=== PATIENT | male | born 1940 | race Caucasian/White ===

== ENCOUNTER 2016-10-25 16:13 | Emergency (ER) | payer MEDICARE, OTHER ==
[2016-10-25] MEDS ORDERED: traMADol HCl 50 MG TAB ONE (17:08)
[2016-10-25] MEDS ORDERED: Bacitracin Zinc 1 Packet ONE (17:13)
[2016-10-25] MEDS ORDERED: Orphenadrine Citrate 60 MG/2 ML VIAL ONE (17:30)
--- NOTE | 2016-10-25 18:34 | CT ---
CT HEAD NONCONTRAST CLINICAL HISTORY: Chronic neuropathy and weakness. FINDINGS: There is moderate chronic microvascular ischemic disease. Mild prominence of the ventricular system is present. There is no acute intracranial hemorrhage, mass effect, or midline shift. Scattered p aranasal sinus opacification, including a fluid level of the right maxillary sinus, is present. IMPRESSION: 1. Moderate chronic microvascular ischemic disease. 2. Mild prominence of the ventricular system, somewhat out of proportion to the size of the sulci. Correlate clinically to exclude evidence of a normal pressure hydrocephalus. Alternatively, ventri cular prominence could be due to the degree of microvascular ischemic disease. POS: [facility]
--- NOTE | 2016-10-25 19:04 | RAD ---
RIGHT SHOULDER THREE VIEWS HISTORY: Neuropathy and back weakness. Using a walker, attempting to get his easy chair, he could not make i t and fell backwards, onto concrete. Scapular pain, worse with movement. Chronic weakness. COMPARISON: None. FINDINGS: Glenohumeral alignment is normal. There are some enthesophytic changes of the coracoid. The body o f the scapula appears intact. The ribs are unremarkable. IMPRESSION: No acute fracture or malalignment. POS: [facility]
--- NOTE | 2016-10-26 07:29 | CT ---
CT THORACIC SPINE INDICATIONS: Chronic neuropathy and weakness. FINDINGS: There is multi-level prominent degenerative changes at the thoracic spine with associated kyphosis. No compression fracture or significant subluxation. No significant retropulsion involving the vert ebral canal. There is multilevel mild disk-osteophyte complex formation, producing mild multilevel central canal stenosis and mild to moderate bilateral neural foraminal narrowing of the thoracic spi ne. These findings are inadequately assessed on noncontrast CT imaging. Scattered nonspecific samina onal lymph nodes are present. There is prominent cardiac valvular calcification, as well as vascula r disease, including coronary artery calcium. Incidental note of pulmonary emphysema. IMPRESSION: Degenerative changes of the thoracic spine, without acute fracture or subluxation. [facility]: [facility]
== END 2016-10-25 18:18 | disposition home or self-care (01) ==
LOC: NAV ERS 16:13
DX: S41.112A Laceration without foreign body of left upper arm, initial encounter (principal); S30.0XXA Contusion of lower back and pelvis, initial encounter; S00.03XA Contusion of scalp, initial encounter; Z79.02 Long term (current) use of antithrombotics/antiplatelets; K21.9 Gastro-esophageal reflux disease without esophagitis; I25.10 Atherosclerotic heart disease of native coronary artery without angina pectoris; Z86.73 Personal history of transient ischemic attack (TIA), and cerebral infarction without residual deficits; Z79.82 Long term (current) use of aspirin; Z79.899 Other long term (current) drug therapy; W07.XXXA Fall from chair, initial encounter
CPT/HCPCS: 70450; 72128; 96372; J2360

== ENCOUNTER 2017-03-03 14:47 | Emergency (ER) | payer MEDICARE, OTHER ==
--- NOTE | 2017-03-03 15:32 | RAD ---
THREE VIEWS OF THE RIGHT SHOULDER: 03/03/17 COMPARISON: 10/25/16 HISTORY: Right shoulder pain for two weeks. FINDINGS: There is anterior osteophyte formation involving the right acromion. No widening of the acromioclavi cular or coracoclavicular interspace. Stable degenerative change at the right AC joint noted with in ferior osteophyte formation. No evidence for dislocation or acute fracture. IMPRESSION: Stable degenerative change of the right acromioclavicular joint. No displaced fracture or dislocatio n seen. POS: [facility]
[2017-03-03] MEDS ORDERED: Ketorolac Tromethamine 30 MG/ML VIAL ONE (15:35)
[2017-03-03] MEDS ORDERED: Acetaminophen 500 MG TAB ONE (15:36)
[2017-03-03] MEDS ORDERED: Dexamethasone 20 MG/5 ML VIAL ONE (15:37)
== END 2017-03-03 15:53 | disposition home or self-care (01) ==
LOC: NAV ERS 14:47
DX: M75.51 Bursitis of right shoulder (principal); E78.5 Hyperlipidemia, unspecified; I10 Essential (primary) hypertension; I25.10 Atherosclerotic heart disease of native coronary artery without angina pectoris; G62.9 Polyneuropathy, unspecified; Z87.891 Personal history of nicotine dependence; Z86.73 Personal history of transient ischemic attack (TIA), and cerebral infarction without residual deficits; Z79.82 Long term (current) use of aspirin; Z79.02 Long term (current) use of antithrombotics/antiplatelets; Z79.891 Long term (current) use of opiate analgesic; Z79.899 Other long term (current) drug therapy
CPT/HCPCS: 96372; J1100; J1885

== ENCOUNTER → 2017-05-06 | Emergency (ER) | payer MEDICARE, OTHER ==
[~2017-05-06] MED LIST: Acetaminophen 500 MG TAB ONE; Lidocaine 1% 20 ML MDV ONE; Sulfameth/Trimethoprim DS 800-160mg TAB ONE
[2017-05-06 19:04] LABS: #Basophils 0.1 thou/uL (0.0-0.2); #Eosinphils 0.1 thou/uL (0.0-0.7); #Lymphocytes 1.2 thou/uL (1.20-3.40); #Monocytes 1.1 thou/uL (0.11-0.59); #Neutrophils 9.5 thou/uL (1.40-6.50); %Basophils 1.2 % (0.0-1.0); %Eosinophils 0.8 % (0.0-10.0); %Monocytes 9.4 % (0.0-10.0); %Neutrophils 78.6 % (42.0-75.0); Hemoglobin 14.3 g/dL (14.0-18.0); Mean Corpuscular Hemoglobin 30.9 pg (27.0-31.0); Mean Corpuscular Volume 96.5 fl (80.0-94.0); Mean Platelet Volume 8.1 fL (7.4-10.4); Platelet Count 175 thou/uL (130-400); Red Blood Cell (RBC) Count 4.62 mill/uL (4.70-6.10); White Blood Cell (WBC) Count 12.1 thou/uL (4.8-10.8)
[2017-05-06 19:11] LABS: ALT (SGPT) 7 U/L (8-55); AST (SGOT) 14 U/L (5-34); Albumin 4.2 g/dL (3.4-4.8); Alkaline Phosphatase 74 U/L (40-150); Anion Gap 15 mmol/L (10-20); BUN (Urea Nitrogen) 15 mg/dL (8.4-25.7); Bilirubin, Total 0.8 mg/dL (0.2-1.2); Calc. Creatinine Clearance 0 mL/min (70-130); Calcium 9.5 mg/dL (7.8-10.44); Carbon Dioxide 25 mmol/L (23-31); Chloride 103 mmol/L (98-107); Estimated GFR-MDRD 79; Globulin 3.3 g/dL (2.4-3.5); Glucose 96 mg/dL (83-110); Potassium 4.1 mmol/L (3.5-5.1); Protein, Total 7.5 g/dL (5.8-8.1); Sodium 139 mmol/L (136-145)
== END ==
LOC: NAV ERS 17:12
DX: L02.426 Furuncle of left lower limb (principal); E78.5 Hyperlipidemia, unspecified; I10 Essential (primary) hypertension; I25.10 Atherosclerotic heart disease of native coronary artery without angina pectoris; K21.9 Gastro-esophageal reflux disease without esophagitis; Z86.73 Personal history of transient ischemic attack (TIA), and cerebral infarction without residual deficits; Z87.891 Personal history of nicotine dependence; Z79.891 Long term (current) use of opiate analgesic; Z79.82 Long term (current) use of aspirin; Z79.899 Other long term (current) drug therapy; Z79.02 Long term (current) use of antithrombotics/antiplatelets; Z95.0 Presence of cardiac pacemaker
CPT/HCPCS: 10060; 80053; 83605; 85025; 86140; 87040; 87070; 87077; 87149; 87186; 87205; J2001

== ENCOUNTER 2017-05-31 12:15 | Outpatient (CLI) | payer MEDICARE, OTHER ==
[2017-05-31 13:01] LABS: Vancomycin, Trough 11.6 ug/mL
[2017-05-31 13:04] LABS: #Basophils 0.1 thou/uL (0.0-0.2); #Eosinphils 0.3 thou/uL (0.0-0.7); #Monocytes 0.7 thou/uL (0.11-0.59); %Eosinophils 3.7 % (0.0-10.0); %Lymphocytes 11.1 % (21.0-51.0); %Monocytes 7.4 % (0.0-10.0); %Neutrophils 76.9 % (42.0-75.0); Hemoglobin 11.7 g/dL (14.0-18.0); Mean Corpuscular HGB CONC 32.1 g/dL (32.0-36.0); Mean Corpuscular Hemoglobin 30.5 pg (27.0-31.0); Mean Platelet Volume 8.6 fL (7.4-10.4); Platelet Count 183 thou/uL (130-400); RBC Distribution Width 13.5 % (11.5-14.5); Red Blood Cell (RBC) Count 3.84 mill/uL (4.70-6.10); White Blood Cell (WBC) Count 9.1 thou/uL (4.8-10.8)
[2017-05-31 13:06] LABS: ALT (SGPT) Less than 6 U/L (8-55); AST (SGOT) 18 U/L (5-34); Albumin 3.8 g/dL (3.4-4.8); Alkaline Phosphatase 66 U/L (40-150); Anion Gap 15 mmol/L (10-20); BUN (Urea Nitrogen) 12 mg/dL (8.4-25.7); Bilirubin, Total 0.6 mg/dL (0.2-1.2); CRP (Inflammatory) 2.51 mg/dL (= or < 0.5); Calc. Creatinine Clearance 0 mL/min (70-130); Calcium 8.7 mg/dL (7.8-10.44); Carbon Dioxide 24 mmol/L (23-31); Chloride 105 mmol/L (98-107); Estimated GFR-MDRD 58; Globulin 2.7 g/dL (2.4-3.5); Glucose 103 mg/dL (83-110); Potassium 3.3 mmol/L (3.5-5.1); Protein, Total 6.5 g/dL (5.8-8.1); Sodium 141 mmol/L (136-145)
[2017-05-31 13:43] LABS: Follow-up Chemistry Comp? YES; Follow-up Hematology Comp? YES; Follow-up Result - Chemistry REPORT FAXED; Follow-up Result - Hematology REPORT FAXED
== END 2017-05-31 12:16 | disposition home or self-care (01) ==
LOC: NAV LABSP 12:15
PROVIDERS: ATTEND Internal Medicine Infectious Disease
DX: L02.31 Cutaneous abscess of buttock (principal)
CPT/HCPCS: 80053; 80202; 85025; 86140

== ENCOUNTER 2017-05-31 13:57 | Emergency (ER) | payer MEDICARE, OTHER ==
[2017-05-31 15:04] LABS: #Basophils 0.1 thou/uL (0.0-0.2); #Eosinphils 0.4 thou/uL (0.0-0.7); #Lymphocytes 1.1 thou/uL (1.20-3.40); #Monocytes 0.9 thou/uL (0.11-0.59); #Neutrophils 5.6 thou/uL (1.40-6.50); %Basophils 1.1 % (0.0-1.0); %Eosinophils 5.2 % (0.0-10.0); %Lymphocytes 13.4 % (21.0-51.0); %Monocytes 10.9 % (0.0-10.0); %Neutrophils 69.4 % (42.0-75.0); Hemoglobin 11.2 g/dL (14.0-18.0); Mean Corpuscular HGB CONC 31.8 g/dL (32.0-36.0); Mean Corpuscular Hemoglobin 30.5 pg (27.0-31.0); Mean Corpuscular Volume 96.1 fl (80.0-94.0); Mean Platelet Volume 8.4 fL (7.4-10.4); Platelet Count 178 thou/uL (130-400); RBC Distribution Width 12.5 % (11.5-14.5); Red Blood Cell (RBC) Count 3.66 mill/uL (4.70-6.10); White Blood Cell (WBC) Count 8.1 thou/uL (4.8-10.8)
[2017-05-31 15:16] LABS: Bilirubin Negative (Negative); Blood, Urine Trace (Negative); Clarity Clear (Clear); Glucose, Urine (Dipstick) Negative (Negative); Leukocyte Trace (Negative); Nitrite Negative (Negative); Protein, Urine (Dipstick) Negative (Neg-Trace); Specific Gravity, Urine 1.015 (1.005-1.030); Urobilinogen 0.2 mg/dL (0.2-1.0)
[2017-05-31 15:22] LABS: CKMB 2.6 ng/mL (0-6.6); Troponin I 0.053 ng/mL (< 0.028)
[2017-05-31 15:23] LABS: ALT (SGPT) Less than 6 U/L (8-55); AST (SGOT) 17 U/L (5-34); Albumin 3.9 g/dL (3.4-4.8); Alkaline Phosphatase 68 U/L (40-150); Anion Gap 14 mmol/L (10-20); BUN (Urea Nitrogen) 12 mg/dL (8.4-25.7); Bilirubin, Total 0.5 mg/dL (0.2-1.2); CK (CPK) 58 U/L (30-200); Calc. Creatinine Clearance 0 mL/min (70-130); Calcium 8.5 mg/dL (7.8-10.44); Carbon Dioxide 28 mmol/L (23-31); Chloride 104 mmol/L (98-107); Estimated GFR-MDRD 61; Globulin 2.7 g/dL (2.4-3.5); Glucose 78 mg/dL (83-110); Protein, Total 6.6 g/dL (5.8-8.1); Sodium 143 mmol/L (136-145)
[2017-05-31 15:33] LABS: RBC/HPF 0-3 HPF (0-3)
[2017-05-31 15:37] LABS: Bacteria/HPF None Seen HPF (None Seen); WBC/HPF 0-3 HPF (0-3)
[2017-05-31] MEDS ORDERED: Furosemide 40 MG/4 ML VIAL ONE (15:43)
[2017-05-31] MEDS ORDERED: Potassium Chloride 20 MEQ TAB ONE (15:43)
--- NOTE | 2017-05-31 17:06 | RAD ---
FRONTAL RADIOGRAPH CHEST PORTABLE SEMIUPRIGHT: Date: 05-31-17 Comparison: None. History: Emergency examination. FINDINGS: There is a right upper extremity PICC, distal tip overlying the region of the SVC. There is a transv enous pacing device present. Shallow inspiration and lordotic positioning as well as patient body habitus limits detailed assessm ent, especially of bilateral lung bases in the left perihilar region. There is hazy increased densit y in both lung bases which could signify parenchymal or pleural opacity versus artifact. IMPRESSION: Limited evaluation of the lung bases. Recommend PA and lateral chest imaging with better patient pos itioning and better inspiration. POS: [facility]
== END 2017-05-31 17:57 | disposition short-term general hospital (02) ==
LOC: NAV ERS 13:57
DX: I11.0 Hypertensive heart disease with heart failure (principal); I50.9 Heart failure, unspecified; E87.6 Hypokalemia; E78.5 Hyperlipidemia, unspecified; Z87.891 Personal history of nicotine dependence; Z79.899 Other long term (current) drug therapy; Z79.82 Long term (current) use of aspirin
CPT/HCPCS: 71010; 80053; 80202; 81003; 81015; 82550; 82553; 83880; 84484; 85025; 86140; 93005; 96374; J1940

== ENCOUNTER 2017-06-04 14:29 | Inpatient (IN) | payer MEDICARE, OTHER ==
[2017-06-04 16:30] VITALS: BMI 32.9
[2017-06-04] MEDS ORDERED: Gabapentin 300 MG CAP PO SCH (22:15)
[2017-06-04] MEDS: traMADol HCl 50 MG TAB PO PRN (22:16)
[2017-06-04] MEDS ORDERED: VANCOMYCIN IVPB PRN (22:21)
[2017-06-05 05:28] LABS: Eosinophils 2 % (0-10); Hemoglobin 11.7 g/dL (14.0-18.0); Lymphocytes 13 % (21-51); MDiff Complete? YES; Mean Corpuscular HGB CONC 32.5 g/dL (32.0-36.0); Mean Corpuscular Hemoglobin 30.7 pg (27.0-31.0); Mean Corpuscular Volume 94.4 fl (80.0-94.0); Monocytes 10 % (0-10); Neutrophil 75 % (42-75); PLT Morphology Comment Appears Adequate; Platelet Count 193 thou/uL (130-400); RBC Morphology Normal; White Blood Cell (WBC) Count 7.3 thou/uL (4.8-10.8)
[2017-06-05 05:34] LABS: Anion Gap 14 mmol/L (10-20); BUN (Urea Nitrogen) 17 mg/dL (8.4-25.7); Calc. Creatinine Clearance 59 mL/min (70-130); Calcium 8.8 mg/dL (7.8-10.44); Carbon Dioxide 27 mmol/L (23-31); Chloride 105 mmol/L (98-107); Estimated GFR-MDRD 45; Glucose 107 mg/dL (83-110); Sodium 143 mmol/L (136-145)
[2017-06-05 07:09] LABS: Potassium 2.8 mmol/L (3.5-5.1)
[2017-06-05] MEDS ORDERED: Potassium Chloride 20 MEQ TAB PO SCH ×2 (08:00→10:00)
[2017-06-05] MEDS ORDERED: Potassium Chloride 10 MEQ TAB PO SCH (08:00)
[2017-06-05] MEDS: Furosemide 40 MG TAB PO SCH (08:21)
[2017-06-05] MEDS: Aspirin 81 mg Enteric Coated Tablet PO SCH (08:21)
[2017-06-05] MEDS: Clopidogrel Bisulfate 75 MG TAB PO SCH (08:21)
[2017-06-05] MEDS: Gabapentin 300 MG CAP PO SCH ×3 (08:22→21:10)
[2017-06-05] MEDS: traMADol HCl 50 MG TAB PO PRN ×2 (08:23→21:11)
[2017-06-05] MEDS ORDERED: Non-Formulary Item 1 EACH (Vancomycin Hcl [Vancomycin Hcl] 1 GM) IVPB SCH (09:00)
[2017-06-05] MEDS: Vancomycin HCl 1 GM in Sodium Chloride 0.9% 250 ML 250 ML IVPB SCH (10:03)
--- NOTE | 2017-06-05 10:48 | HP ---
DATE OF SERVICE: 06/05/2017 CHIEF COMPLAINT: Ad[facility] therapy status post recent admi ssion to the hospital for diastolic congestive heart failure, left thigh abscess requiring IV antibi otics, and coronary artery disease. BRIEF HISTORY: This is a pleasant 76-year-old male who presented to [facility] with in creasing lower extremity edema and elevated blood pressure. His BNP was 1400. The echocardiogram s hows a preserved systolic function of 50-55%, but has severe aortic stenosis and possible diastolic dysfunction. He responded to IV Lasix. He has been switched over to oral Lasix and he was continue d on his IV vancomycin for his left thigh abscess with MRSA. He has been transferred here to finish his antibiotics as well as physical therapy. Currently, he denies any complaints. He is in bed in no distress. He denies any fever or chills. PAST MEDICAL HISTORY: 1. Coronary artery disease. 2. Hypertension. 3. Dyslipidemia. 4. Thigh abscess with MRSA requiring IV vancomycin. 5. Severe aortic stenosis. 6. Possible diastolic dysfunction. 7. History of CVA. 8. Gastroesophageal reflux disease. PAST SURGICAL HISTORY: 1. Coronary artery bypass grafting. 2. Permanent pacemaker placement. 3. Prostatectomy which is transurethral resection of the prostate. 4. Lumbar spine surgery. 5. Hernia repair. 6. Left total knee replacement revision. PSYCHOSOCIAL HISTORY: No tobacco, alcohol, or IV drug abuse. He lives alone, is fairly active and independent. FAMILY HISTORY: Positive for coronary artery disease. ALLERGIES: No known drug allergies. MEDICATIONS: He has been admitted here with the following medications: Lasix 40 mg daily, aspirin 81 mg daily, Plavix 75 mg daily, gabapentin 300 mg t.i.d., metoprolol ER 12.5 mg daily, tramadol 50 mg 2 tablets q.6 p.r.n., potassium chloride 10 mEq daily, and vancomycin 1 gram IV q.24. Discharge o rder states q.12, but pharmacy called me and stated that they had changed his dosing to q.24 and so that is what he is going to be on and pharmacy is going to continue to adjust his dosing. REVIEW OF SYSTEMS: Cardiovascular: Denies any chest pain, shortness of breath, palpitations, PND, orthopnea, or pedal edema. Respiratory: Denies any chronic cough, expectoration or pleuritic type chest pain. Gastrointestinal: Denies any nausea, vomiting, diarrhea, constipation, hematemesis, me ghislaine, or hematochezia. GENITOURINARY: Denies any frequency, urgency, dysuria or hematuria. Centra l Nervous Systems: No focal numbness, weakness, or fainting spells. PHYSICAL EXAMINATION: GENERAL: Pleasant 76-year-old male resting comfortably in no acute distress. He responds appropriately to questions. VITAL SIGNS: He is afebrile, heart rate 79, respirations 18, oxygen saturation 95% on room air, blo od pressure is 143/88. HEENT: Normocephalic, atraumatic. Pupils equally reactive to light and accommodation. Extraocular muscles intact. NECK: No JVD, thyromegaly, cervical adenopathy, throat exudates or carotid bruits. CARDIOVASCULAR: S1, S2 plus, rate and rhythm regular. He has a 3/6 ejection systolic murmur in the aortic area. RESPIRATORY: Normal vesicular breath sounds. ABDOMEN: Soft, obese, nontender, bowel sounds heard in all quadrants. EXTREMITIES: Without cyanosis or clubbing. Peripheral pulses are palpable. He has 1+ pitting tala a. CENTRAL NERVOUS SYSTEMS: Grossly nonfocal. LABORATORY VALUES: Done this morning shows a white count of 7.3, H\T\H is 11.7 and 35.9. Sodium 14 3, potassium is 2.8, it was 3.6 on the 9th. BUN and creatinine 17 and 1.52. BNP on the 7th was 141 0. IMPRESSION: 1. Possible diastolic congestive heart failure. 2. Hypokalemia. 3. Coronary artery disease without angina. 4. History of thigh abscess with methicillin-resistant Staphylococcus aureus. 5. Severe aortic stenosis. PLAN: 1. Replace potassium. 2. Recheck potassium level at noon today. 3. Continue IV vancomycin, pharmacy to adjust dosing. 4. Wound care. 5. Heart healthy diet. 6. Physical therapy evaluation and treatment. 7. Routine laboratory values. 8. Decubitus precautions. 9. DVT prophylaxis. 10. Discussed with patient in detail and all questions answered.
[2017-06-05 13:06] LABS: Potassium 3.9 mmol/L (3.5-5.1)
[2017-06-05] MEDS: Enoxaparin Sodium 40 MG/0.4 ML SYRINGE SC SCH (21:10)
[2017-06-06] MEDS: Furosemide 40 MG TAB PO SCH (09:10)
[2017-06-06] MEDS: Clopidogrel Bisulfate 75 MG TAB PO SCH (09:11)
[2017-06-06] MEDS: Gabapentin 300 MG CAP PO SCH ×3 (09:11→21:23)
[2017-06-06] MEDS: Potassium Chloride 10 MEQ TAB PO SCH (09:11)
[2017-06-06] MEDS: Aspirin 81 mg Enteric Coated Tablet PO SCH (09:11)
[2017-06-06] MEDS: traMADol HCl 50 MG TAB PO PRN ×2 (09:12→21:25)
[2017-06-06 10:00] LABS: Anion Gap 14 mmol/L (10-20); BUN (Urea Nitrogen) 19 mg/dL (8.4-25.7); Calc. Creatinine Clearance 56 mL/min (70-130); Calcium 8.8 mg/dL (7.8-10.44); Carbon Dioxide 28 mmol/L (23-31); Chloride 105 mmol/L (98-107); Estimated GFR-MDRD 42; Glucose 161 mg/dL (83-110); Potassium 3.8 mmol/L (3.5-5.1); Sodium 143 mmol/L (136-145); Vancomycin, Trough 16.6 ug/mL
[2017-06-06] MEDS: Vancomycin HCl 1 GM in Sodium Chloride 0.9% 250 ML 250 ML IVPB SCH (10:19)
[2017-06-06] MEDS: HYDROcodone/Acetaminophen 5/325 mg Tablet PO PRN (13:04)
[2017-06-06] MEDS: Nystatin Powder 15 GM BOT TOP SCH ×2 (15:07→21:27)
--- NOTE | 2017-06-06 16:04 | PRG ---
DATE OF SERVICE: 06/06/2017 SUBJECTIVE: Mr. Matos is doing well. Denies any complaints, resting comfortably. He is having so me perineal rash for which Nystatin will be prescribed. He is having some frequent bowel movements, but not diarrhea according to nursing. OBJECTIVE: VITAL SIGNS: He is afebrile, heart rate 59, respirations 22, oxygen saturation 95%, blood pressure is 143/68. CARDIOVASCULAR SYSTEM: S1, S2 plus. RESPIRATORY SYSTEM: Normal vesicular breath sounds. ABDOMEN: Soft, nontender, bowel sounds heard in all quadrants, obese. EXTREMITIES: Without cyanosis or clubbing. LABORATORY VALUES: His repeat potassium was 3.9 and this morning it is 3.8. BNP is 933. IMPRESSION: 1. Congestive heart failure, chronic diastolic. 2. Thigh abscess with methicillin-resistant Staphylococcus aureus, requiring IV vancomycin. 3. Coronary artery disease. 4. Hypertension. 5. Dyslipidemia. 6. Tinea cruris. 7. Severe aortic stenosis. 8. Gastroesophageal reflux disease. PLAN: 1. Continue current medications. 2. Nutritional support. 3. Continue vancomycin. 4. Potassium increased to 20 mEq daily. 5. Monitor potassium level. 6. Deep venous thrombosis and stress ulcer prophylaxis. 7. Decubitus precautions. 8. Pharmacy to adjust vancomycin dosing. 9. Dr. Flo Pratt will be back tonight and I assumed his care.
[2017-06-06] MEDS: Enoxaparin Sodium 40 MG/0.4 ML SYRINGE SC SCH (21:25)
[2017-06-07] MEDS: Furosemide 40 MG TAB PO SCH (08:51)
[2017-06-07] MEDS: Aspirin 81 mg Enteric Coated Tablet PO SCH (08:51)
[2017-06-07] MEDS: Potassium Chloride 10 MEQ TAB PO SCH (08:51)
[2017-06-07] MEDS: Clopidogrel Bisulfate 75 MG TAB PO SCH (08:52)
[2017-06-07] MEDS: Gabapentin 300 MG CAP PO SCH ×3 (08:52→21:31)
[2017-06-07] MEDS: traMADol HCl 50 MG TAB PO PRN ×2 (08:53→21:33)
[2017-06-07] MEDS: Vancomycin HCl 1 GM in Sodium Chloride 0.9% 250 ML 250 ML IVPB SCH (09:52)
--- NOTE | 2017-06-07 10:30 | PRG ---
DATE OF SERVICE: 06/07/2017 SUBJECTIVE: Mr. Matos is a very pleasant 76-year-old white male who presented to the ER with incre asing lower extremity edema, elevated blood pressure. BNP was 1400. He had an echocardiogram showe d systolic function of 55% with severe aortic stenosis and possible diastolic dysfunction. He respo nded very well to Lasix. He eventually was stabilized and transferred here on his vancomycin to be continued until I believe 06/09/2017. He grew MRSA out of his abscess. He is also here for physica l therapy and occupational therapy. The patient states he is doing well. He does not know all the medicine that he is getting, would li ke to know why he is getting what. He has no other complaints. VITAL SIGNS: Blood pressure 160/69, pulse is 59-71, respirations 18-22, O2 sat 95-97% on room air. PHYSICAL EXAMINATION: GENERAL: This is a well-developed, well-nourished, obese white male in no apparent distress at this time. HEENT: Reveals normocephalic, nontraumatic cranium. Pupils are equally round and reactive. Extrao cular movements intact. Nose and throat are slightly dry. NECK: Supple, without masses, nodes or bruits. CHEST: Clear to auscultation, no rales, rhonchi, wheezes or cough is heard. CARDIOVASCULAR: Reveals at 3/6 systolic ejection murmur. ABDOMEN: Obese, soft, nontender, without organomegaly. Normal bowel sounds are noted. No rebound or guarding is noted. : Deferred. EXTREMITIES: Reveal no clubbing, cyanosis, still 1+ edema. IMPRESSION: 1. Diastolic congestive heart failure. 2. Coronary artery disease, without angina. 3. History of thigh abscess with methicillin-resistant Staphylococcus aureus, needs antibiotics of vancomycin until 06/09/2017. 4. Severe aortic stenosis. 5. History of cerebrovascular accident. 6. Gastroesophageal reflux disease. PLAN: 1. Continue to follow the patient's vancomycin. 2. Wound care. 3. Healthy heart diet. 4 Physical therapy and occupational therapy. 5. Continue decubitus precautions. 6. Deep venous thrombosis prophylaxis. 7. Continue to follow the patient's potassium level.
[2017-06-07] MEDS: Nystatin Powder 15 GM BOT TOP SCH ×2 (14:45→21:32)
[2017-06-07] MEDS: Enoxaparin Sodium 40 MG/0.4 ML SYRINGE SC SCH (21:30)
[2017-06-07] MEDS: Acetaminophen 500 MG TAB PO PRN (21:33)
[2017-06-08] MEDS: Furosemide 40 MG TAB PO SCH (07:53)
[2017-06-08] MEDS: Gabapentin 300 MG CAP PO SCH ×3 (08:45→19:58)
[2017-06-08] MEDS: Potassium Chloride 10 MEQ TAB PO SCH (08:46)
[2017-06-08] MEDS: Clopidogrel Bisulfate 75 MG TAB PO SCH (08:46)
[2017-06-08] MEDS: Aspirin 81 mg Enteric Coated Tablet PO SCH (08:46)
[2017-06-08] MEDS: Nystatin Powder 15 GM BOT TOP SCH ×2 (08:47→19:59)
[2017-06-08 09:55] LABS: Vancomycin, Trough 18.7 ug/mL
--- NOTE | 2017-06-08 10:24 | PRG ---
DATE OF SERVICE: 06/08/2017 DATE OF ADMISSION: 06/04/2017 HISTORY OF PRESENT ILLNESS: Mr. Matos is a very pleasant 76-year-old white male presented to the E with lower extremity edema, elevated blood pressure. BNP was 1400. Echocardiogram showed systoli c function 55% with severe aortic stenosis and diastolic dysfunction. He was responded well to Lasi x. Eventually, he was stabilized and transferred here to continue on his vancomycin. This can be c ontinued until 06/09/2017. Patient grew out MRSA from his abscess that is why he is on vancomycin. He basically is here for physical therapy and occupational therapy. I did discuss his physical therapy with the therapist this morning, they felt that he would definite ly benefit with increased PT, OT, and safe counseling. The patient states he knows he finishes his antibiotics tomorrow and is very excited about that. LABORATORY DATA: No labs were done today. Last vancomycin was 16.6. PHYSICAL EXAMINATION: VITAL SIGNS: Reveal blood pressure is 121/88, pulse 71-109, respirations 18-22, O2 sat 95%-94%, T-m ax 99.2. GENERAL: This is a well-developed, well-nourished, obese white male in no apparent distress at this time. HEENT: Reveals normocephalic, nontraumatic cranium. The pupils are equally round and reactive. Ex traocular movements intact. Nose and throat are moist today. NECK: Supple without masses, nodes, or bruits. LUNGS: Chest is clear to auscultation. No rales, rhonchi, or wheezes are heard. No cough is noted today. CARDIOVASCULAR: Reveals a regular rate and rhythm. It is noted that the patient does have a 3/6 sy stolic ejection murmur. ABDOMEN: Obese, soft, nontender without organomegaly. Normal bowel sounds are heard in all 4 quadr ants. No rebound or guarding is noted. : Deferred. EXTREMITIES: Reveal no clubbing, cyanosis, still some slight 1+ edema. IMPRESSION: 1. Diastolic congestive heart failure. 2. Coronary artery disease without angina. 3. History of thigh abscess with methicillin-resistant Staphylococcus aureus with antibiotics of va ncomycin until 06/09/2017. 4. Severe aortic stenosis. 5. History of cerebrovascular accident. 6. Gastroesophageal reflux disease. PLAN: 1. Continue to follow the patient's vancomycin and his last doses tomorrow. 2. Wound care. 3. Healthy heart diet. 4. PT and OT. 5. Continue decubitus care. 6. Continue venous thrombosis prophylaxis. 7. Continue to monitor the patient's electrolytes as needed.
[2017-06-08] MEDS: Vancomycin HCl 1 GM in Sodium Chloride 0.9% 250 ML 250 ML IVPB SCH (10:45)
[2017-06-08] MEDS: traMADol HCl 50 MG TAB PO PRN ×2 (14:21→20:00)
[2017-06-08] MEDS: Enoxaparin Sodium 40 MG/0.4 ML SYRINGE SC SCH (19:58)
[2017-06-08] MEDS: Acetaminophen 500 MG TAB PO PRN (20:01)
[2017-06-09] MEDS: Furosemide 40 MG TAB PO SCH (07:29)
[2017-06-09] MEDS: Aspirin 81 mg Enteric Coated Tablet PO SCH (07:29)
[2017-06-09] MEDS: Potassium Chloride 10 MEQ TAB PO SCH (07:29)
[2017-06-09] MEDS: traMADol HCl 50 MG TAB PO PRN ×2 (07:30→20:27)
[2017-06-09] MEDS: Clopidogrel Bisulfate 75 MG TAB PO SCH (07:30)
[2017-06-09] MEDS: Gabapentin 300 MG CAP PO SCH ×3 (07:30→20:25)
[2017-06-09] MEDS: Nystatin Powder 15 GM BOT TOP SCH ×2 (07:34→20:26)
[2017-06-09] MEDS: Vancomycin HCl 1 GM in Sodium Chloride 0.9% 250 ML 250 ML IVPB SCH (10:15)
--- NOTE | 2017-06-09 10:34 | PRG ---
DATE OF SERVICE: 06/09/2017 DATE OF ADMISSION: 06/04/2017 SUBJECTIVE: Mr. Matos is a 76-year-old white male that has a wound and is thought growing MRSA. He finishes his last day of vancomycin sometime today. He has actually done very well. He is not happ y with physical therapy. He states he has better physical therapy at home, but he is very unsafe. I had a long discussion with the therapist and they think that he needs more time here. We will try t o keep him here a little longer to at least teach him some more safety precautions. PHYSICAL EXAMINATION: VITAL SIGNS: Not available as the computer is down at [place]. GENERAL: This is a well-developed, well-nourished, pleasant, obese white male, in no apparent distre ss at this time. HEENT: Reveals normocephalic, nontraumatic cranium. Pupils are equally round and reactive. Extraoc ular movements intact. Nose and throat are slightly dry. NECK: Supple, without masses, nodes, or bruits. CHEST: Clear to auscultation, no rales, rhonchi, wheezes, or cough is heard. HEART: Reveals a regular rate and rhythm without murmurs, gallops, or rubs. ABDOMEN: Morbidly obese, soft, nontender, without organomegaly. Normal bowel sounds are noted. No rebound or guarding is noted. EXAM: Deferred. EXTREMITIES: Reveal no clubbing or cyanosis. Thigh abscess is significantly better and healed. The patient finishes vancomycin today. We will also discontinue his isolation precautions. IMPRESSION: 1. Demyelinating, axonal degenerative nerve disease with resultant lower extremity weakness. 2. Methicillin-resistant Staphylococcus aureus positive abscess in his thigh. Finishes last day of vancomycin today. 3. Hypertension. 4. Coronary artery disease. 5. Generalized weakness. PLAN: 1. Finishes vancomycin. 2. Continue to monitor closely. 3. Monitor the patient for congestive heart failure signs and symptoms. 4. Continue physical therapy and occupational therapy. 5. Discharge probably by the end of the week.
[2017-06-09] MEDS: Enoxaparin Sodium 40 MG/0.4 ML SYRINGE SC SCH (20:25)
[2017-06-09] MEDS: Acetaminophen 500 MG TAB PO PRN (20:26)
--- NOTE | 2017-06-10 07:28 | PRG ---
DATE OF SERVICE: 06/10/2017 SUBJECTIVE: The patient is lying in the bed. Feels well with no complaints of chest pain, shortness of breath, and leg pain. He has finished his vancomycin as is continuing on therapy for a wound abs cess of his thigh with MRSA. His main condition for admission was a significant weakness, which is s till minimally improved, but the patient is adamant that he will not get any better and will be disch arging tomorrow. OBJECTIVE: VITAL SIGNS: Shows blood pressure is 165/79, pulse is 83, respirations 20, O2 sats 94%, and afebrile . EXTREMITIES: Left leg shows healed abscess. LUNGS: Clear. CARDIAC: Examination showed regular rhythm. No gallops or murmurs. ABDOMEN: Soft and nontender. NEUROLOGIC: Shows diffuse weakness, much greater in the lower extremities secondary to a demyelinati ng nerve disease. PLAN: Continue PT and OT today and tomorrow. Plan to discharge tomorrow. Continue to monitor for s igns of congestive heart failure.
[2017-06-10] MEDS: Furosemide 40 MG TAB PO SCH (08:51)
[2017-06-10] MEDS: Nystatin Powder 15 GM BOT TOP SCH ×2 (08:52→20:47)
[2017-06-10] MEDS: Gabapentin 300 MG CAP PO SCH ×3 (08:52→20:42)
[2017-06-10] MEDS: Clopidogrel Bisulfate 75 MG TAB PO SCH (08:52)
[2017-06-10] MEDS: Aspirin 81 mg Enteric Coated Tablet PO SCH (08:52)
[2017-06-10] MEDS: Potassium Chloride 10 MEQ TAB PO SCH (08:52)
[2017-06-10] MEDS: Vancomycin HCl 1 GM in Sodium Chloride 0.9% 250 ML 250 ML IVPB SCH (10:32)
[2017-06-10] MEDS: traMADol HCl 50 MG TAB PO PRN (20:44)
[2017-06-10] MEDS: Enoxaparin Sodium 40 MG/0.4 ML SYRINGE SC SCH (20:45)
[2017-06-11] MEDS: Gabapentin 300 MG CAP PO SCH ×3 (08:52→21:24)
[2017-06-11] MEDS: Clopidogrel Bisulfate 75 MG TAB PO SCH (08:52)
[2017-06-11] MEDS: Aspirin 81 mg Enteric Coated Tablet PO SCH (08:52)
[2017-06-11] MEDS: Potassium Chloride 10 MEQ TAB PO SCH (08:52)
[2017-06-11] MEDS: Furosemide 40 MG TAB PO SCH (08:53)
[2017-06-11] MEDS: Nystatin Powder 15 GM BOT TOP SCH ×2 (08:53→21:30)
[2017-06-11] MEDS ORDERED: Magnesium Citrate 300 ML BOT PO SCH ×2 (09:45→21:30)
[2017-06-11 09:51] LABS: Vancomycin, Trough 22.3 ug/mL
[2017-06-11] MEDS: HYDROcodone/Acetaminophen 5/325 mg Tablet PO PRN (10:30)
[2017-06-11] MEDS: Vancomycin HCl 1 GM in Sodium Chloride 0.9% 250 ML 250 ML IVPB SCH (10:31)
[2017-06-11] MEDS: Vancomycin HCl 750 MG in Sodium Chloride 0.9% 250 ML 250 ML IVPB SCH (10:34)
[2017-06-11] MEDS: Enoxaparin Sodium 40 MG/0.4 ML SYRINGE SC SCH (21:25)
[2017-06-11] MEDS: traMADol HCl 50 MG TAB PO PRN (21:25)
[2017-06-12 08:18] VITALS: BP 129/87
[2017-06-12] MEDS: Aspirin 81 mg Enteric Coated Tablet PO SCH (09:54)
[2017-06-12] MEDS: Clopidogrel Bisulfate 75 MG TAB PO SCH (09:54)
[2017-06-12] MEDS: Gabapentin 300 MG CAP PO SCH ×2 (09:54→15:00)
[2017-06-12] MEDS: Potassium Chloride 10 MEQ TAB PO SCH (09:54)
[2017-06-12] MEDS: Furosemide 40 MG TAB PO SCH (09:55)
[2017-06-12] MEDS: traMADol HCl 50 MG TAB PO PRN (09:57)
[2017-06-12 10:03] LABS: #Basophils 0.1 thou/uL (0.0-0.2); #Eosinphils 0.2 thou/uL (0.0-0.7); #Lymphocytes 0.8 thou/uL (1.20-3.40); #Monocytes 0.7 thou/uL (0.11-0.59); #Neutrophils 6.3 thou/uL (1.40-6.50); %Basophils 0.7 % (0.0-1.0); %Eosinophils 2.2 % (0.0-10.0); %Lymphocytes 9.4 % (21.0-51.0); %Monocytes 9.1 % (0.0-10.0); %Neutrophils 78.6 % (42.0-75.0); Mean Corpuscular HGB CONC 32.2 g/dL (32.0-36.0); Mean Corpuscular Hemoglobin 30.8 pg (27.0-31.0); Mean Corpuscular Volume 95.6 fl (80.0-94.0); Mean Platelet Volume 8.3 fL (7.4-10.4); Platelet Count 192 thou/uL (130-400); RBC Distribution Width 14.1 % (11.5-14.5); Red Blood Cell (RBC) Count 3.56 mill/uL (4.70-6.10)
[2017-06-12 10:18] LABS: ALT (SGPT) 6 U/L (8-55); Albumin 3.7 g/dL (3.4-4.8); Alkaline Phosphatase 58 U/L (40-150); Anion Gap 15 mmol/L (10-20); BUN (Urea Nitrogen) 31 mg/dL (8.4-25.7); Bilirubin, Total 0.5 mg/dL (0.2-1.2); Calc. Creatinine Clearance 50 mL/min (70-130); Carbon Dioxide 28 mmol/L (23-31); Chloride 104 mmol/L (98-107); Estimated GFR-MDRD 36; Globulin 2.9 g/dL (2.4-3.5); Glucose 150 mg/dL (83-110); Potassium 4.3 mmol/L (3.5-5.1); Protein, Total 6.6 g/dL (5.8-8.1); Sodium 143 mmol/L (136-145)
[2017-06-12 11:02] LABS: AST (SGOT) Less than 3 U/L (5-34)
[2017-06-12] MEDS: Vancomycin HCl 750 MG in Sodium Chloride 0.9% 250 ML 250 ML IVPB SCH (11:10)
[2017-06-12] MEDS: Nystatin Powder 15 GM BOT TOP SCH (11:31)
[2017-06-12 14:07] VITALS: TEMP 96
--- NOTE | 2017-06-12 15:01 | RAD ---
PORTABLE CHEST: Date: 06/12/17 HISTORY: Chest pain. FINDINGS: Comparison with 05/31/17. Heart size is enlarged. Postop sternotomy changes and pacemaker are present. Right-sided PICC line is noted. Lungs are clear of infiltrates. No signs of failure. IMPRESSION: Cardiomegaly. No acute process. POS: [facility]
== END 2017-06-12 13:15 | disposition short-term general hospital (02) | DRG 948 ==
LOC: NAV ACUTE 14:29
PROVIDERS: ADMIT Internal Medicine; ATTEND Internal Medicine
DX: R53.1 Weakness (principal); L02.416 Cutaneous abscess of left lower limb; I11.0 Hypertensive heart disease with heart failure; I50.32 Chronic diastolic (congestive) heart failure; E78.5 Hyperlipidemia, unspecified; I25.10 Atherosclerotic heart disease of native coronary artery without angina pectoris; B35.6 Tinea cruris; I35.0 Nonrheumatic aortic (valve) stenosis; E87.6 Hypokalemia; K21.9 Gastro-esophageal reflux disease without esophagitis; Z86.73 Personal history of transient ischemic attack (TIA), and cerebral infarction without residual deficits; Z95.0 Presence of cardiac pacemaker; Z95.1 Presence of aortocoronary bypass graft; B95.62 Methicillin resistant Staphylococcus aureus infection as the cause of diseases classified elsewhere
CPT/HCPCS: 36415; 36416; 71010; 80048; 80053; 80202; 83880; 85025; 87324; 87449; A4216; G8978-GP-CM; G8979-GP-CK; J1650; J3370; J7050

== ENCOUNTER 2017-06-12 13:18 | Emergency (ER) | payer MEDICARE, OTHER ==
[2017-06-12 14:55] LABS: CKMB 1.7 ng/mL (0-6.6)
[2017-06-12 15:22] LABS: Troponin I 0.072 ng/mL (< 0.028)
== END 2017-06-12 16:41 | disposition short-term general hospital (02) ==
LOC: NAV ERS 13:18
DX: I47.1 Supraventricular tachycardia (principal); I11.0 Hypertensive heart disease with heart failure; I50.9 Heart failure, unspecified; N28.9 Disorder of kidney and ureter, unspecified; E78.5 Hyperlipidemia, unspecified; I25.10 Atherosclerotic heart disease of native coronary artery without angina pectoris; Z87.891 Personal history of nicotine dependence; Z79.899 Other long term (current) drug therapy; Z79.82 Long term (current) use of aspirin
CPT/HCPCS: 82553; 84484; 94760

== ENCOUNTER 2017-07-30 12:21 | Emergency (ER) | payer MEDICARE, OTHER ==
[2017-07-30 13:20] LABS: #Basophils 0.1 thou/uL (0.0-0.2); #Eosinphils 0.2 thou/uL (0.0-0.7); #Lymphocytes 0.7 thou/uL (1.20-3.40); #Neutrophils 10.9 thou/uL (1.40-6.50); %Basophils 0.7 % (0.0-1.0); %Eosinophils 1.4 % (0.0-10.0); %Lymphocytes 5.5 % (21.0-51.0); %Monocytes 7.6 % (0.0-10.0); %Neutrophils 84.8 % (42.0-75.0); Hemoglobin 11.7 g/dL (14.0-18.0); Mean Corpuscular HGB CONC 31.2 g/dL (32.0-36.0); Mean Corpuscular Hemoglobin 28.3 pg (27.0-31.0); Mean Corpuscular Volume 90.8 fl (80.0-94.0); Mean Platelet Volume 8.6 fL (7.4-10.4); Platelet Count 248 thou/uL (130-400); RBC Distribution Width 13.6 % (11.5-14.5); Red Blood Cell (RBC) Count 4.13 mill/uL (4.70-6.10); White Blood Cell (WBC) Count 12.9 thou/uL (4.8-10.8)
[2017-07-30 13:25] LABS: Anion Gap 14 mmol/L (10-20); BUN (Urea Nitrogen) 12 mg/dL (8.4-25.7); Calc. Creatinine Clearance 0 mL/min (70-130); Calcium 9.3 mg/dL (7.8-10.44); Carbon Dioxide 28 mmol/L (23-31); Chloride 100 mmol/L (98-107); Estimated GFR-MDRD 72; Glucose 76 mg/dL (83-110); Potassium 3.7 mmol/L (3.5-5.1); Sodium 138 mmol/L (136-145)
[2017-07-30] MEDS ORDERED: Ondansetron HCl/PF 4 MG/2 ML Vial ONE (13:53)
[2017-07-30] MEDS ORDERED: Fentanyl 100 MCG/2 ML VIAL ONE (13:53)
[2017-07-30] MEDS ORDERED: Sodium Chloride 0.9% 250 ML 250 ML ONE (13:53)
[2017-07-30] MEDS ORDERED: Cefepime 1 GM VIAL ONE (15:19)
== END 2017-07-30 16:10 | disposition short-term general hospital (02) ==
LOC: NAV ERS 12:21
DX: L89.153 Pressure ulcer of sacral region, stage 3 (principal); L03.312 Cellulitis of back [any part except buttock and flank]; E78.5 Hyperlipidemia, unspecified; I10 Essential (primary) hypertension; I25.10 Atherosclerotic heart disease of native coronary artery without angina pectoris; G62.9 Polyneuropathy, unspecified; K21.9 Gastro-esophageal reflux disease without esophagitis; Z86.73 Personal history of transient ischemic attack (TIA), and cerebral infarction without residual deficits; Z87.891 Personal history of nicotine dependence
CPT/HCPCS: 80048; 85025; 87040; 87076; 87149; 96365; 96375; J0692; J2405; J3010; J3370; J7050

== ENCOUNTER 2017-08-04 20:06 | Inpatient (IN) | payer MEDICARE ==
[2017-08-04] MEDS ORDERED: Loperamide HCl 2 MG CAP PO PRN (21:41)
[2017-08-04] MEDS ORDERED: Milk Of Magnesia 30 ML UDCUP PO PRN (21:41)
[2017-08-04] MEDS ORDERED: Oseltamivir 75 MG CAP PO SCH (22:30)
[2017-08-04] MEDS ORDERED: Gabapentin 100 MG CAP PO SCH (22:30)
[2017-08-04] MEDS ORDERED: Famotidine 20 MG TAB PO SCH (22:30)
[2017-08-04] MEDS ORDERED: Gabapentin 300 MG CAP PO SCH (22:30)
[2017-08-04] MEDS ORDERED: Metoprolol Tartrate 25 MG TAB PO SCH (22:30)
[2017-08-04] MEDS: Guaifenesin DM 100-10/5 ML UDCUP PO PRN (22:40)
[2017-08-04] MEDS: traMADol HCl 50 MG TAB PO PRN (22:42)
--- NOTE | 2017-08-05 03:37 | HP ---
DATE OF HISTORY AND PHYSICAL: 08/04/2017 Mr. Matos is a pleasant 77-year-old white male who was transferred from [facility] to [facility] for continued wound care and antibiotics. The patient was seen at [facility] and had TAVR done there. He states while he was in the hosp ital, they were checking his bottom and noted that he had some type sore or something there. He stat es when they discharged him, they sent him home on ambulance from [place] with his coccyx rubbing up against the bed. He got home and he said that they were supposed to send a wound care nurse to [facility] [place] to check on that. He states he never got wound care visit and he showed up in my office probably 2 days before admission to [place]. We ordered wound care which apparently he refused because th ere was some type of $800 down payment he had made before that started. Nonetheless, the patient's p ain became worse and he was seen at [facility] where he was admitted and debridement was don e which revealed stage III type coccyx ulcer. The patient was started on IV antibiotics. Eventually stabilized and was transferred here with a wound VAC. He is to continue on his medicine and wound V AC and possibly restart his anticoagulants. PAST MEDICAL HISTORY: 1. Coronary artery disease. 2. Hypertension. 3. Hyperlipidemia. 4. Severe aortic stenosis. 5. Possible diastolic dysfunction. 6. History of cerebrovascular accident. 7. Gastroesophageal reflux. 8. History of MRSA of thigh abscess requiring IV vancomycin. 9. Progressive demyelinating axonal neuropathy. 10. Generalized weakness. PAST SURGICAL HISTORY: 1. Coronary artery bypass grafting x3 vessels done in 2002. 2. Pacemaker. 3. TAVR, done Marvin Cagle at [facility] in 2016. 4. Total left knee replacement. 5. Prostatectomy. 6. TURP. 7. Lumbar spine surgery 2010. CURRENT MEDICATIONS: Present medications that the patient is on when transferred include the followi n. Eliquis 5 mg b.i.d. which is presently on hold until surgery approved. 2. Aspirin 81 mg daily. 3. Plavix 75 mg which is currently on hold until approved by surgery. 4. Diltiazem CD 120 mg daily. 5. Pepcid 20 mg b.i.d. 6. Furosemide 40 mg each morning. 7. Gabapentin 300 mg twice daily. 8. Gabapentin 100 mg at bedtime. 9. Metoprolol tartrate 25 mg b.i.d. 10. Minocycline 100 mg b.i.d. 11. Tamiflu 75 mg b.i.d. 12. Potassium chloride 20 mEq each day. 13. Tramadol 100 mg q.6 hours p.r.n. severe pain. ALLERGIES: The patient has no known medical allergies. SOCIAL HISTORY: Reveals patient stopped smoking in 1966. Denies any alcohol use or drugs. He lives alone but his [id number] lives next door and helps him tremendously. FAMILY HISTORY: Reveals the patient's mother at age of 86. Patient's father at age 81. B oth had coronary artery disease. REVIEW OF SYSTEMS: The patient states he has not had any fever or chills. He has been losing a celeste le weight because he has not felt like eating. Patient states he has cataracts and he is to have a cataract surgery. The patient denies any ear, nose and throat problems. He states his hearing is pretty good. His vis ion is fairly good. The patient denies any respiratory problems including cough, cold, congestion or wheezing. The patient denies any chest pain, dyspnea on exertion, palpitations. Patient denies any nausea, vomiting, diarrhea or constipation. The patient denies any urgency, frequency, dysuria, noc turia. Patient complains of lower extremity weakness, but no significant pain or swelling. The patient does have no significant history of anxiety, depression. PHYSICAL EXAMINATION: GENERAL: This is a well-developed, well-nourished, somewhat obese white male in no apparent distress at this time. HEENT: Reveals normocephalic, nontraumatic cranium. Pupils are equally round and reactive. Extraoc ular movements intact. Nose and throat are slightly dry. NECK: Supple, without masses, nodes or bruits. No jugular venous distention is noted. LUNGS: Chest is clear to auscultation. No rales, rhonchi, wheezes or cough is heard. HEART: Reveals a regular rate and rhythm without murmurs, gallops or rubs. ABDOMEN: Soft, nontender, without organomegaly. Normal bowel sounds are noted. No rebound or guard ing is noted. The patient's abdomen was noted be somewhat obese. GENITOURINARY: Deferred. EXTREMITIES: Reveal no clubbing, cyanosis or edema. The patient has a stage III decubitus which is presently covered and sealed for wound VAC functioning. NEUROLOGIC: The patient does have demyelinating progressive neuropathy diagnosed in [place] many yea rs ago. ASSESSMENT: 1. Stage III decubitus ulcer which is rather large presently on wound VAC. 2. Sacral area which has previously been debrided by Dr. Farmer. 3. Hypertension. 4. Hyperlipidemia. 5. History of cerebrovascular accident. 6. Generalized weakness. PLAN: 1. Continue patient on medicine. 2. Wound VAC and wound care. 3. Physical therapy and occupational therapy. 4. Continue present medications. 5. We have a call in to Dr. Framer. He has my cell number. He is to call me back when we can restar t his Eliquis, Plavix. He is presently on aspirin.
[2017-08-05 05:39] LABS: Band 2 % (5-11); Eosinophils 1 % (0-10); Lymphocytes 11 % (21-51); MDiff Complete? YES; Mean Corpuscular HGB CONC 31.9 g/dL (32.0-36.0); Mean Corpuscular Hemoglobin 28.4 pg (27.0-31.0); Mean Corpuscular Volume 89.1 fl (80.0-94.0); Mean Platelet Volume 9.3 fL (7.4-10.4); Microcytosis MODERATE=15-30 cells (100X) (0-5/hpf); Monocytes 4 % (0-10); Neutrophil 82 % (42-75); PLT Morphology Comment Appears Adequate; Platelet Count 132 thou/uL (130-400); RBC Distribution Width 13.4 % (11.5-14.5); Red Blood Cell (RBC) Count 3.18 mill/uL (4.70-6.10); White Blood Cell (WBC) Count 5.4 thou/uL (4.8-10.8)
[2017-08-05 05:43] LABS: ALT (SGPT) Less than 6 U/L (8-55); AST (SGOT) 19 U/L (5-34); Albumin 2.7 g/dL (3.4-4.8); Alkaline Phosphatase 34 U/L (40-150); Anion Gap 10 mmol/L (10-20); BUN (Urea Nitrogen) 9 mg/dL (8.4-25.7); Bilirubin, Total 0.4 mg/dL (0.2-1.2); Calc. Creatinine Clearance 110 mL/min (70-130); Carbon Dioxide 31 mmol/L (23-31); Chloride 102 mmol/L (98-107); Estimated GFR-MDRD Greater than 90; Globulin 2.9 g/dL (2.4-3.5); Glucose 93 mg/dL (83-110); Protein, Total 5.6 g/dL (5.8-8.1); Sodium 140 mmol/L (136-145)
[2017-08-05 05:49] LABS: Potassium 2.8 mmol/L (3.5-5.1)
[2017-08-05] MEDS: Furosemide 40 MG TAB PO SCH (08:29)
[2017-08-05] MEDS: Potassium Chloride 20 MEQ TAB PO SCH ×2 (08:30→21:54)
[2017-08-05] MEDS: Metoprolol Tartrate 25 MG TAB PO SCH ×2 (08:30→21:54)
[2017-08-05] MEDS: Oseltamivir 75 MG CAP PO SCH ×2 (08:30→21:54)
[2017-08-05] MEDS: Aspirin 81 mg Enteric Coated Tablet PO SCH (08:30)
[2017-08-05] MEDS: Famotidine 20 MG TAB PO SCH ×2 (08:31→21:53)
[2017-08-05] MEDS: MINOCYCLINE HCL 50 MG PO SCH ×2 (08:31→09:22)
[2017-08-05] MEDS: Gabapentin 300 MG CAP PO SCH ×2 (08:31→21:53)
[2017-08-05] MEDS: traMADol HCl 50 MG TAB PO PRN ×3 (08:36→21:54)
[2017-08-05] MEDS ORDERED: Minocycline Hcl [Minocin] 100 MG PO SCH (09:00)
[2017-08-05] MEDS ORDERED: Potassium Chloride 20 MEQ TAB PO SCH (09:00)
--- NOTE | 2017-08-05 11:38 | PRG ---
DATE OF SERVICE: 08/05/2017 HISTORY OF PRESENT ILLNESS: Mr. Matos is a very pleasant 77-year-old white male that had TAVR done at [facility]. Postoperatively, he is transferred to his home via ambulance and states that pr ior to being discharge someone did some type of procedure on his buttocks. When he was discharged, roosevelt liu was sent home by ambulance and the coccyx area rubbing to bed all the way home. He came to see me in approximately 2 weeks after that and had some eschar over decubitus ulcer. He is set up for tonsi l with wound care doctor, Dr. Lane and with [facility], but because the insurance change, roosevelt liu said that he did not accept [place] [employer], because he was going to be 800 dollars upfront payme nt before they saw him. Nonetheless, the patient was seen in the emergency room and admitted to the hospital and revealed he had a coccyx decubitus ulcer, which is stage 3. Vital signs revealed blood pressure this morning was 150/72, pulse 81-87, respirations 20, O2 saturat ion 94%-98%, and T-max was 99.3. PHYSICAL EXAMINATION: GENERAL: This is a well-developed, well-nourished, somewhat obese white male in no apparent distress at this time. HEENT: Reveals normocephalic, nontraumatic cranium. Pupils are equally round and reactive. Nose an d throat are somewhat dry but clear. The patient states he is eating well. NECK: Supple, without masses, nodes, or bruits. CHEST: Clear to auscultation. No rales, rhonchi, or wheezes are heard. CARDIOVASCULAR: Reveals a regular rate and rhythm without murmurs, gallops, or rubs. ABDOMEN: Obese, soft, nontender, without organomegaly. Normal bowel sounds are noted. No rebound o r guarding is noted. : Deferred. EXTREMITIES: Reveal no clubbing, cyanosis, or edema. The patient's coccyx wound is covered with Mep ilex at this time. Discussed wound care with the wound care personnel and we will do some Santyl [place] ridement and then most likely restart his wound VAC in a couple days. 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 ASSESSMENT: 1. 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 2. Recent debridement by Dr. Farmer on the coccyx area is now stage 3. 3. Hypertension. 4. Hyperlipidemia. 5. Cerebrovascular accident by history. 6. Generalized weakness. PLAN: 1. Continue present medications. 2. Continue enzymatic debridement on his stage 3. 3. Physical therapy and occupational therapy as tolerated. 4. Awaiting Dr. Farmer's call back about whether we should restart his Eliquis and Plavix. He is pre sently on aspirin.
[2017-08-05] MEDS ORDERED: Collagenase 250 UNITS/GM Ointment 30 GM TUBE TOP SCH (15:30)
[2017-08-05] MEDS: Collagenase 250 UNITS/GM Ointment 30 GM TUBE TOP SCH (15:40)
[2017-08-05] MEDS: Gabapentin 100 MG CAP PO SCH (21:53)
[2017-08-06] MEDS ORDERED: Collagenase 250 UNITS/GM Ointment 30 GM TUBE TOP SCH (09:00)
[2017-08-06] MEDS ORDERED: COLLAGENASE 250 UNIT/GM TOP SCH (09:00)
[2017-08-06] MEDS: Aspirin 81 mg Enteric Coated Tablet PO SCH (09:21)
[2017-08-06] MEDS: Potassium Chloride 20 MEQ TAB PO SCH ×2 (09:21→21:10)
[2017-08-06] MEDS: Gabapentin 300 MG CAP PO SCH ×2 (09:21→21:10)
[2017-08-06] MEDS: Metoprolol Tartrate 25 MG TAB PO SCH ×2 (09:21→21:10)
[2017-08-06] MEDS: Oseltamivir 75 MG CAP PO SCH ×2 (09:22→21:10)
[2017-08-06] MEDS: Furosemide 40 MG TAB PO SCH (09:22)
[2017-08-06] MEDS: Famotidine 20 MG TAB PO SCH ×2 (09:22→21:10)
[2017-08-06] MEDS: Ondansetron ODT 4 MG TAB PO PRN (09:24)
[2017-08-06] MEDS: Collagenase 250 UNITS/GM Ointment 30 GM TUBE TOP SCH ×2 (09:29→16:32)
[2017-08-06] MEDS: Gabapentin 100 MG CAP PO SCH (21:10)
--- NOTE | 2017-08-06 22:33 | PRG ---
DATE OF SERVICE: 08/06/2017 SUBJECTIVE: Mr. Matos is a very pleasant 77-year-old white male who had a TAVR done at [facility] several weeks ago. Postoperatively, when he was transferred home, he had something rubbing up a gainst his coccyx. He also remembers they have done some type of procedure on his coccyx before he l eft the hospital. Nonetheless, he showed up in my office approximately 2 weeks after getting home co mplaining of coccyx pain. He was noted to have an unstageable decubitus and we set him up to see [facility] care and home health wound care. The patient somehow refused his home health care because he said it was going to cost him 800 dollars to get prepaid on that. He went to the hospital, was evaluated, and admitted to the hospital for de bridement. Postoperatively, he was transferred to [facility] for continued oral anti biotics, physical therapy, and wound care. PHYSICAL EXAMINATION: VITAL SIGNS: Today revealed, blood pressure this morning 139/80, pulse 79 to 85, respirations 20, O2 sat 92%-94% on room air, T-max 98.4. GENERAL: This is a well-developed, well-nourished, somewhat obese white male in no apparent distress at this time. HEENT: Reveals normocephalic, nontraumatic cranium. Pupils are equally round and reactive. Extraoc ular movements intact. Nose and throat are slightly dry, but clear. NECK: Supple without masses, nodes, or bruits. LUNGS: Chest is clear to auscultation. No cough is noted. No rales, no rhonchi, and no wheezes are heard. HEART: Reveals a regular rate and rhythm. No murmurs, gallops, or rubs are noted. ABDOMEN: Somewhat obese. It is soft and nontender. No organomegaly is noted. Normal bowel sounds are noted in all 4 quadrants and no rebound or guarding is noted. : Deferred. EXTREMITIES: Revealed no clubbing or cyanosis, but with trace edema. BACK: Coccyx wound is still covered with Mepilex. There is some concern about a vein going through the middle of that wound that is a contraindication for a wound VAC. NEUROLOGIC: It is noted that t he patient does have a demyelinating progressive axonal neuropathy diagnosed in [place] greater than 10 years ago. ASSESSMENT: 1. Stage III decubitus ulcer over the coccyx. 2. Recent debridement by Dr. Farmer. 3. Hypertension. 4. Hyperlipidemia. 5. Cerebrovascular accident by history. 6. Generalized weakness. PLAN: 1. Continue present medications. 2. We will do enzymatic debridement on stage 3. 3. Physical therapy and occupational therapy. 4. Awaiting Dr. Farmer's call back on his Eliquis and Plavix.
[2017-08-06] MEDS: traMADol HCl 50 MG TAB PO PRN (22:50)
--- NOTE | 2017-08-07 08:35 | PRG ---
DATE OF SERVICE: 08/07/2017 DATE OF ADMISSION: 08/04/2017 SUBJECTIVE: Mr. Matos is a very pleasant 77-year-old white male admitted postoperative to TAVR who developed sacral decubitus. He was admitted to [facility] which was debrided down to stage 3-4. He was transferred to [facility] for continued antibiotics and wound VAC care. The patient states he is doing well today and he is eating well. He says he does not have any pain i n his coccyx today, which is good and in improvement. PHYSICAL EXAMINATION: VITAL SIGNS: Blood pressure this morning 141/74, pulse 75-87, respirations 18-20, O2 sat 92%-99% on 2 liters, T-max 98.6. GENERAL: Reveals a well-developed, well-nourished, somewhat obese white male in no apparent distress at this time. HEENT: Reveals normocephalic, nontraumatic cranium. Pupils are equally round and reactive. Extraoc ular movements are intact. Nose and throat are dry, but clear. NECK: Supple, without masses, nodes or bruits. CHEST: Clear to auscultation. No rales, rhonchi or wheezes are heard. No cough is noted. HEART: Reveals a regular rate and rhythm without murmurs, gallops or rubs. ABDOMEN: Obese, soft, nontender without organomegaly. Normal bowel sounds are noted. No rebound or guarding is noted. GENITOURINARY: Deferred. EXTREMITIES: Reveal no clubbing, cyanosis with some trace edema. Coccyx is covered. Wound VAC is n ot on because of exposed vein. NEUROLOGIC: The patient's demyelinating progressive axonal neuropathy diagnosed in [facility] 10 years ago. IMPRESSION: 1. Stage III decubitus ulcer over the coccyx. 2. Debridement by Dr. Farmer. 3. Hypertension. 4. Hyperlipidemia. 5. Cerebrovascular accident by history. 6. Generalized weakness. PLAN: 1. Continue present meds. 2. Continue wound care. 3. Continue physical therapy and occupational therapy. 4. Stress ulcer prophylaxis. 5. Decubitus precautions. 6. Deep venous thrombosis prophylaxis on hold.
[2017-08-07] MEDS: Gabapentin 300 MG CAP PO SCH ×2 (09:08→21:32)
[2017-08-07] MEDS: Aspirin 81 mg Enteric Coated Tablet PO SCH (09:08)
[2017-08-07] MEDS: Potassium Chloride 20 MEQ TAB PO SCH ×2 (09:09→21:32)
[2017-08-07] MEDS: Oseltamivir 75 MG CAP PO SCH ×2 (09:09→21:32)
[2017-08-07] MEDS: Furosemide 40 MG TAB PO SCH (09:10)
[2017-08-07] MEDS: Metoprolol Tartrate 25 MG TAB PO SCH ×2 (09:10→21:32)
[2017-08-07] MEDS: traMADol HCl 50 MG TAB PO PRN ×2 (09:10→21:33)
[2017-08-07] MEDS: Famotidine 20 MG TAB PO SCH ×2 (09:10→21:32)
[2017-08-07] MEDS: Collagenase 250 UNITS/GM Ointment 30 GM TUBE TOP SCH (15:30)
[2017-08-07] MEDS: Gabapentin 100 MG CAP PO SCH (21:32)
[2017-08-08] MEDS: Furosemide 40 MG TAB PO SCH (07:38)
[2017-08-08] MEDS: traMADol HCl 50 MG TAB PO PRN ×2 (07:39→20:06)
--- NOTE | 2017-08-08 09:03 | PRG ---
DATE OF SERVICE: 08/08/2017 DATE OF ADMISSION: 08/04/2017 HISTORY OF PRESENT ILLNESS: Mr. Matos is a very pleasant 77-year-old white male that postop from hi s TAVR in [place]. He developed sacral decubitus. He was admitted to [facility] and had de bridement down to stage 3, stage 4 sacral decubitus. Eventually, he was transferred to [facility] for continued antibiotics and wound VAC care. The patient states he had a bad night because he had hip pain which typically comes from his back. Kelsy liu takes 300 mg of gabapentin in the morning and in the afternoon and 100 at night. We will increase his gabapentin to 600 at night and should have been 300 at night. PHYSICAL EXAMINATION: VITAL SIGNS: Reveal blood pressure this morning was 149/81, pulse 79-87, respirations 18-20, O2 sat 96%-99%, T-max 98.2. GENERAL: Reveals a well-developed, well-nourished, obese white male in no apparent distress at this time. HEENT: Reveals normocephalic, nontraumatic cranium. Pupils are equally round and reactive. Extraoc ular movements intact. Nose and throat are dry, but clear. NECK: Supple, without masses, nodes or bruits. LUNGS: Chest is clear to auscultation. No rales, rhonchi, wheezes or cough is heard. CARDIOVASCULAR: Reveals a regular rate and rhythm without murmurs, gallops or rubs. ABDOMEN: Obese, soft, nontender, without organomegaly. Normal bowel sounds are noted. No rebound o r guarding is noted. GENITOURINARY: Deferred. EXTREMITIES: Reveal left hip pain that radiates down to his leg. He has no clubbing or cyanosis. C occyx is still covered. Wound VAC not on because of exposed vein which is contraindicated. NEUROLOGIC: The patient has a demyelinating progressive axonal neuropathy diagnosed in [facility] er than 10 years ago. LABORATORY DATA: No labs were done today. IMPRESSION: 1. Stage 4 decubitus of the coccyx. 2. Status post debridement by Dr. Farmer. 3. Hypertension. 4. Hyperlipidemia. 5. CVA by history. 6. Generalized weakness. 7. Progressive demyelinating axonal neuropathy. PLAN: 1. Continue wound care. 2. Stress ulcer prophylaxis. 3. Decubitus precautions. 4. DVT prophylaxis. 5. Wound care. 6. Physical therapy and occupational therapy.
[2017-08-08] MEDS: Oseltamivir 75 MG CAP PO SCH ×2 (09:08→20:06)
[2017-08-08] MEDS: Metoprolol Tartrate 25 MG TAB PO SCH ×2 (09:09→20:05)
[2017-08-08] MEDS: Potassium Chloride 20 MEQ TAB PO SCH (09:09)
[2017-08-08] MEDS: Famotidine 20 MG TAB PO SCH ×2 (09:09→20:05)
[2017-08-08] MEDS: Aspirin 81 mg Enteric Coated Tablet PO SCH (09:09)
[2017-08-08] MEDS: Collagenase 250 UNITS/GM Ointment 30 GM TUBE TOP SCH (16:30)
[2017-08-08] MEDS: Gabapentin 300 MG CAP PO SCH (20:06)
[2017-08-09] MEDS: Furosemide 40 MG TAB PO SCH (07:25)
[2017-08-09] MEDS: Aspirin 81 mg Enteric Coated Tablet PO SCH (08:59)
[2017-08-09] MEDS: Oseltamivir 75 MG CAP PO SCH ×2 (09:00→20:55)
[2017-08-09] MEDS: Potassium Chloride 20 MEQ TAB PO SCH (09:00)
[2017-08-09] MEDS: Famotidine 20 MG TAB PO SCH ×2 (09:00→20:55)
[2017-08-09] MEDS: Metoprolol Tartrate 25 MG TAB PO SCH ×2 (09:00→20:55)
[2017-08-09] MEDS: traMADol HCl 50 MG TAB PO PRN ×2 (09:06→16:08)
[2017-08-09] MEDS: Collagenase 250 UNITS/GM Ointment 30 GM TUBE TOP SCH (10:29)
[2017-08-09] MEDS: Guaifenesin DM 100-10/5 ML UDCUP PO PRN (11:04)
[2017-08-09] MEDS: Gabapentin 300 MG CAP PO SCH (20:55)
--- NOTE | 2017-08-09 21:07 | PRG ---
DATE OF ADMISSION: 08/04/2017 DATE OF SERVICE: 08/09/2017 HISTORY OF PRESENT ILLNESS: The patient is a very pleasant 77-year-old white male that had TAVR done at [facility] in [place]. Postoperatively, he was eventually discharged and transferred via a mbulance all the way home. He states that in the ambulance something was rubbing against his coccyx when he got home, he never did check it. He was seen in my office approximately 2 weeks later with a large ulcer that was not red, not irritated or healing. We made a referral to Dr. Lane's office and to Wound Care at [facility]. [facility] to some type of prepayment he had to make that he states it was like 4 to 600 dollars. The patient was eventually seen at the Emergency Room at [place] and admitted to [facility] where he had debridement down to stage 3 type coccyx ulcer. He had a wound VAC placed and was transferred to [facility] to continue with wound care and antibiotics. SUBJECTIVE: The patient states he had a good night last night. He has no complaints today. He stat es the service is not fast enough. OBJECTIVE: VITAL SIGNS: Reveal blood pressure this morning 169/89, pulse 79-80, respirations 20, O2 sat 96% to 98%, T-max 98.2. GENERAL: This is a well-developed, well-nourished, obese white male, in no apparent distress at this time. HEENT: Reveals normocephalic, nontraumatic cranium. The pupils are equally round and reactive. Ext raocular movements are intact. Nose and throat are somewhat dry, but clear. NECK: Supple, without masses, nodes or bruits. LUNGS: Chest is clear to auscultation, no rales, rhonchi, wheezes or cough is heard. CARDIOVASCULAR: Heart reveals a regular rate and rhythm. No murmurs, gallops or rubs are noted. ABDOMEN: Soft, nontender, without organomegaly, normal bowel sounds are noted. No rebound or guardi ng is noted. GENITOURINARY: Deferred. EXTREMITIES: Reveal no clubbing, cyanosis or edema. Left hip pain still continues to radiate down h is leg. A wound VAC was supposed to be replaced again today. NEUROLOGIC: The patient has demyelinating progressive axonal neuropathy, diagnosed greater than 10 y ears ago. IMPRESSION: 1. Stage 3 to 4 decubitus of the coccyx. 2. Status post debridement by Dr. Farmer. 3. Hypertension. 4. Hyperlipidemia. 5. TAVR done at [facility] in [place]. 6. Cerebrovascular accident by history. 7. Progressive demyelinating axonal neuropathy. 8. Generalized weakness. PLAN: 1. Replace wound VAC today. 2. Continue oral antibiotics. 3. Stress ulcer prophylaxis. 4. Decubitus precautions. 5. Deep venous thrombosis prophylaxis. 6. Wound Care. 7. Physical therapy and occupational therapy.
[2017-08-10] MEDS: Furosemide 40 MG TAB PO SCH (07:37)
[2017-08-10] MEDS: traMADol HCl 50 MG TAB PO PRN ×2 (09:05→20:12)
[2017-08-10] MEDS: Guaifenesin DM 100-10/5 ML UDCUP PO PRN (09:05)
[2017-08-10] MEDS: Aspirin 81 mg Enteric Coated Tablet PO SCH (09:06)
[2017-08-10] MEDS: Potassium Chloride 20 MEQ TAB PO SCH (09:07)
[2017-08-10] MEDS: Metoprolol Tartrate 25 MG TAB PO SCH ×2 (09:07→20:12)
[2017-08-10] MEDS: Oseltamivir 75 MG CAP PO SCH ×2 (09:07→17:39)
[2017-08-10] MEDS: Famotidine 20 MG TAB PO SCH ×2 (09:07→20:12)
[2017-08-10] MEDS: Collagenase 250 UNITS/GM Ointment 30 GM TUBE TOP SCH (09:08)
[2017-08-10] MEDS: Ondansetron ODT 4 MG TAB PO PRN (12:21)
[2017-08-10] MEDS ORDERED: Potassium Chloride 20 MEQ TAB PO SCH (13:15)
--- NOTE | 2017-08-10 13:46 | PRG ---
DATE OF SERVICE: 08/10/2017 HISTORY OF PRESENT ILLNESS: Mr. Matos is a 77-year-old white male that had a TAVR at [facility] in [place]. Postoperatively, he was eventually stabilized and transferred home. On the way home, he had something in the ambulance rubbing against his coccyx. When he got home, he eventually had a large coccyx decubiti. He was seen in my office 2 weeks later and I referred him to Dr. Lane and to Wound Care at [facility]. The patient refuses wound care at [facility] because he had to pay a prepay down payment. The patient eventually presented to the emergency room at [facility], was admitted to the hospital where he had debridement done to a stage 3-4 coccyx ulcer. He had a wound VAC placed and was then transferred to [facility] for continued wound care and minocycline antibiotics. SUBJECTIVE: The patient states he is nauseated and he is not able to eat. He states it is his medicines and most likely he gets Minocin and Tamiflu and potassium every morning that most likely is giving him a problem. I told him that we would give him some Zofran about 7 o'clock, have his breakfast at about 8 and give his Minocin, Tamiflu, potassium in the middle of his breakfast. He said he would consider trying that. VITAL SIGNS: Blood pressure this morning was 142/63, pulse 79-80, respirations 18-22, O2 sat 90-95%. T-max 98.2. PHYSICAL EXAMINATION: GENERAL: This is a well-developed, well-nourished, obese white male in no apparent distress at this time. HEENT: Reveals normocephalic, nontraumatic cranium. Pupils are equally round and reactive. Extraocular movements intact. Nose and throat are dry, but clear. Slightly more dry than usual. NECK: Supple, without masses, nodes or bruits. LUNGS: Chest clear to auscultation. The patient does have a dry occasional raspy hacking cough. CARDIOVASCULAR: Reveals a regular rate and rhythm. No murmurs, gallops or rubs are noted. ABDOMEN: Soft, tender. No organomegaly is noted. Hyperactive bowel sounds are noted today. No rebound or guarding is noted. : Deferred. EXTREMITIES: Reveal no clubbing, cyanosis or edema. The patient's wound VAC is on. 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 IMPRESSION: 1. Nausea this morning. 2. Stage III to IV decubitus on the coccyx, presently on Minocin. 3. Status post debridement by Dr. Farmer. 4. Hypertension. 5. Hyperlipidemia. 6. TAVR done at [facility] in [place]. 7. CVA by history. 8. Progressive demyelinating axonal neuropathy. 9. Generalized weakness. 10. Flu. PLAN: 1. Replace the antibiotics and move them into the middle of or end of breakfast. 2. Start on Zofran every morning an hour prior to him getting his breakfast. 3. Continued stress ulcer prophylaxis. 4. Decubitus precautions. 5. Deep venous thrombosis prophylaxis. 6. Wound care. 7. Physical therapy and occupational therapy. [facility]
[2017-08-10] MEDS: Gabapentin 300 MG CAP PO SCH (20:12)
[2017-08-11] MEDS: Ondansetron ODT 4 MG TAB PO SCH (07:25)
[2017-08-11] MEDS: Metoprolol Tartrate 25 MG TAB PO SCH ×2 (09:23→20:32)
[2017-08-11] MEDS: Famotidine 20 MG TAB PO SCH ×2 (09:23→20:32)
[2017-08-11] MEDS: Aspirin 81 mg Enteric Coated Tablet PO SCH (09:24)
[2017-08-11] MEDS: Furosemide 40 MG TAB PO SCH (09:24)
[2017-08-11] MEDS: Oseltamivir 75 MG CAP PO SCH ×2 (09:24→17:32)
[2017-08-11] MEDS: Collagenase 250 UNITS/GM Ointment 30 GM TUBE TOP SCH (09:29)
[2017-08-11] MEDS: Potassium Chloride 20 MEQ TAB PO SCH (12:22)
[2017-08-11] MEDS: traMADol HCl 50 MG TAB PO PRN (15:35)
--- NOTE | 2017-08-11 19:17 | PRG ---
DATE OF SERVICE: 08/11/2017 HISTORY OF PRESENT ILLNESS: Mr. Matos is a 77-year-old white male with TAVR done at [facility] in [place]. Postoperatively, he was stabilized, immediately transferred to home. He states that o n his right back, something was rubbing against his coccyx. Eventually 2 weeks after he arrived home , he came to my office and noted to have a large decubitus on his coccyx area. He was referred to Dr Kolby Lane in Wound care at [facility]. Apparently there are some type of financial probl ems with [facility] and the patient states he had to prepay $800 and therefore he did not do the woun d care. Eventually, he was brought to the emergency room at [place] and admitted to the hospital where he had debridement done of stage 3 stage 4 coccyx ulcer. He had Wound VAC placed and was trans ferred to [facility] for continued wound care minocycline antibiotics. SUBJECTIVE: The patient has been very nauseated, not eating. We did rearrange his medications, his Minocin and his Tamiflu and his potassium to be after his meals or right at the end of his meals and we gave him Zofran before his meal. He is doing very well. He states he feels like a new person. Kelsy liu has no complaints today and states his stomach feels much better. OBJECTIVE: VITAL SIGNS: Reveal blood pressure 135/72, pulse 79-81, respirations 20-22, O2 saturation 98%. T-ma x 98.2. GENERAL: Reveals a well-developed, well-nourished, pleasant, slightly obese white male in no apparen t distress at this time. HEENT: Reveals normocephalic, nontraumatic cranium. Pupils are equal, round, and reactive. Extraoc ular movements are intact. Nose and throat are slightly dry. NECK: Supple, without mass, nodes or bruits. LUNGS: Chest is clear to auscultation. The patient does have occasional hacky cough, but is stable. HEART: Reveals a regular rate and rhythm without murmurs, gallops or rubs. ABDOMEN: Soft, nontender, without organomegaly, normal bowel sounds are noted. There is no rebound or guarding is noted. : Deferred. EXTREMITIES: Reveal no clubbing, cyanosis or edema. Patient has Wound VAC is in place. Patient als o has demyelinating progressive axonal neuropathy diagnosed greater than 10 years ago in [place]. IMPRESSION: 1. Nausea, which is much improved and gone. 2. Stage III to IV decubitus on the coccyx. 3. Status post debridement on Dr. Farmer. 4. Hypertension. 5. Hyperlipidemia. 6. Transcatheter aortic valve replacement done at [facility] in [place]. 7. Cerebrovascular accident by history. 8. Progressive demyelinating axonal neuropathy. 9. Generalized weakness. 10. Flu. PLAN: 1. Antibiotics and Tamiflu have been moved to middle or end of his breakfast. 2. The patient is started on Zofran. 3. Continue stress ulcer prophylaxis. 4. Continue decubitus precautions. 5. Wound VAC. 6. Deep venous thrombosis prophylaxis. 7. Wound care. 8. Physical therapy and occupational therapy.
[2017-08-11] MEDS: Gabapentin 300 MG CAP PO SCH (20:32)
[2017-08-12] MEDS: Furosemide 40 MG TAB PO SCH (09:40)
[2017-08-12] MEDS: Oseltamivir 75 MG CAP PO SCH ×2 (09:41→17:31)
[2017-08-12] MEDS: Ondansetron ODT 4 MG TAB PO SCH (09:41)
[2017-08-12] MEDS: Aspirin 81 mg Enteric Coated Tablet PO SCH (09:41)
[2017-08-12] MEDS: Metoprolol Tartrate 25 MG TAB PO SCH ×2 (09:41→20:49)
[2017-08-12] MEDS: Famotidine 20 MG TAB PO SCH ×2 (09:41→20:49)
[2017-08-12] MEDS: Collagenase 250 UNITS/GM Ointment 30 GM TUBE TOP SCH (09:42)
[2017-08-12] MEDS: traMADol HCl 50 MG TAB PO PRN ×2 (10:02→17:30)
[2017-08-12] MEDS: Potassium Chloride 20 MEQ TAB PO SCH (12:11)
--- NOTE | 2017-08-12 20:47 | PRG ---
DATE OF SERVICE: 08/12/2017 HISTORY OF PRESENT ILLNESS: Mr. Matos is a 77-year-old white male that had TAVR done at [facility] in [place]. Postoperatively, he eventually was transferred home in an ambulance, it is probabl y approximately 100 miles. Unfortunately, he states his back was rubbing against something around hi s coccyx area. After he arrived home, he came to see me in my office approximately 2 weeks later and was noted to have a large decubitus on his coccyx area. He was referred to Dr. Lane of Wound car e at [facility]. Apparently, the patient had some kind of financial problems with [facility] and was requested to pay 800 Dollars prepay. He states he wou ld not and therefore he did not get any further wound care. Eventually, he went to the emergency jonathon at [place] and was admitted to the hospital. He had debridement done by Dr. Farmer, which turned out to be a stage III or stage IV coccyx ulcer. Eventually, had a wound VAC placed and then was tra nsferred to [facility] for continued wound care and his oral antibiotics of minocycli ne. SUBJECTIVE: The patient has actually done very well. This morning when I saw him, he states that he feels really good. He is eating well and he has not had any more nausea and vomiting. We did remov e his medicine and his Tamiflu to the middle of breakfast and middle of supper. He has no complaints today. PHYSICAL EXAMINATION: VITAL SIGNS: Blood pressure this morning 120/70, pulse 78-80, respirations 18-20, O2 sat 91-93% on 2 liters, T-max 98.5. GENERAL: Reveals a well-developed, well-nourished, somewhat obese white male, in no apparent distres s at this time. HEENT: Reveals normocephalic, nontraumatic cranium. Pupils are equally round and reactive. Extraoc ular movements are intact. Nose and throat are moist. NECK: Supple, without masses, nodes or bruits. LUNGS: Chest clear to auscultation. No rales, no rhonchi, no wheezes are noted. The patient's hack y cough is improved today. CARDIOVASCULAR: Reveals a regular rate and rhythm without murmurs, gallops or rubs. ABDOMEN: Soft, nontender, without organomegaly. Normal bowel sounds are heard in all 4 quadrants. No rebound or guarding is noted. GENITOURINARY: Deferred. EXTREMITIES: Reveal no clubbing, cyanosis or edema. The patient's wound VAC is in place. Staff not ed that the patient has lower extremity demyelinating progressive axonal neuropathy diagnosed greater than 10 years ago in [place]. LABORATORY DATA: No labs were done this morning. IMPRESSION: 1. Nausea, resolved. 2. Status 3-4 decubitus on the coccyx. 3. Status post debridement of that decubitus by Dr. Farmer. 4. Hypertension. 5. Hyperlipidemia. 6. Transcatheter aortic valve replacement done at [facility] in [place]. 7. Cerebrovascular accident distantly by history. 8. Progressive demyelinating axonal neuropathy. 9. Flu resolved. 10. Generalized weakness. PLAN: 1. The patient will finish his antibiotics and Tamiflu and those have been moved to the middle of hi s breakfast and supper. 2. The patient will continue Zofran every morning. 3. Continue stress ulcer prophylaxis. 4. Continue decubitus precautions. 5. Continue deep venous thrombosis prophylaxis. 6. Continue physical therapy and occupational therapy. 7. Wound care. 8. Wound VAC.
[2017-08-12] MEDS: Gabapentin 300 MG CAP PO SCH (20:49)
[2017-08-13] MEDS: traMADol HCl 50 MG TAB PO PRN ×3 (09:30→20:24)
[2017-08-13] MEDS: Aspirin 81 mg Enteric Coated Tablet PO SCH (09:31)
[2017-08-13] MEDS: Furosemide 40 MG TAB PO SCH (09:31)
[2017-08-13] MEDS: Oseltamivir 75 MG CAP PO SCH ×2 (09:31→16:32)
[2017-08-13] MEDS: Collagenase 250 UNITS/GM Ointment 30 GM TUBE TOP SCH (09:32)
[2017-08-13] MEDS: Famotidine 20 MG TAB PO SCH ×2 (09:32→20:22)
[2017-08-13] MEDS: Ondansetron ODT 4 MG TAB PO SCH (09:32)
[2017-08-13] MEDS: Metoprolol Tartrate 25 MG TAB PO SCH ×2 (09:32→20:22)
[2017-08-13] MEDS: Potassium Chloride 20 MEQ TAB PO SCH (13:13)
[2017-08-13] MEDS: Gabapentin 300 MG CAP PO SCH ×2 (13:46→20:22)
--- NOTE | 2017-08-13 23:22 | PRG ---
DATE OF SERVICE: 08/13/2017 DATE OF ADMISSION: 08/04/2017 HISTORY OF PRESENT ILLNESS: Mr. Matos is a very pleasant 77-year-old white male that was seen at [facility] and have a TAVR done. He was eventually transferred home by ambulance, which was appr oximately about an hour and basically had something rubbing at coccyx. When he arrived home, he did not come into the office for at least 2 weeks. He eventually was seen in my office and referred to Pier[facility] for Wound [facility] and [facility], but apparently his insurance did not cover home health and wanted some type of down payment of 800 dollars. He did not do that and eventually proce eded to the emergency room at [facility] where he was seen and admitted to the hospital. He was seen by Dr. Farmer and had a debridement done of his coccyx area that was about stage III to stag e IV ulcer. Eventually, he had a wound VAC placed and was transferred to [facility] for continued physical therapy and occupational therapy. Unfortunately, the patient developed the fl u and infection and he was started on Tamiflu and minocycline. The patient has actually been doing v althea well except he had nausea with both those medicines, so they were moved to in the middle of his m eal. OBJECTIVE: VITAL SIGNS: Today reveal blood pressure 109/56, pulse 78-80, respirations 16-20, O2 sat 96%, T-max 99.3. GENERAL: This is a well-developed, well-nourished, very pleasant white male in no apparent distress at this time. HEENT: Reveals normocephalic and nontraumatic cranium. Pupils are equally round and reactive. Extr aocular movements are intact. Nose and throat are slightly dry. NECK: Supple, without masses, nodes or bruits. LUNGS: Chest is clear to auscultation. No rales, no rhonchi, no wheezes are heard. The patient jones s not have any cough at this time. HEART: Reveals a regular rate and rhythm without murmurs, gallops or rubs. ABDOMEN: Soft, nontender, without organomegaly, normal bowel sounds are noted in all 4 quadrants. N o rebound or guarding is noted. GENITOURINARY: Deferred. EXTREMITIES: Reveal no clubbing, cyanosis or edema. The patient's wound VAC is off at this time as they are changing it. I am observing his wound and it is probably about 3.5 x 4 inches beefy red and clean. They will be reapplying wound VAC this afternoon. It is also noted the patient has lower ex tremity demyelinating progressive axonal neuropathy. LABORATORY DATA: None for the last couple of days. IMPRESSION: 1. Nausea is resolved. 2. 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 3. Status post debridement of that decubitus by Dr. Farmer. 4. Hypertension. 5. Hyperlipidemia. 6. TAVR done at [facility]. 7. Cerebrovascular accident in the distant past. 8. Progressive demyelinating axonal neuropathy. 9. Flu resolved. 10. Generalized weakness. PLAN: 1. Patient will continue his antibiotics and finish his Tamiflu after 5 days. 2. The patient will continue Zofran every morning. 3. Stress ulcer prophylaxis. 4. Decubitus precautions. 5. Deep venous thrombosis prophylaxis. 6. Continue physical therapy and occupational therapy. 7. Continue wound care. 8. Continue wound VAC.
[2017-08-14 06:00] VITALS: BMI 31.8
[2017-08-14] MEDS: Gabapentin 300 MG CAP PO SCH ×3 (09:02→21:03)
[2017-08-14] MEDS: Metoprolol Tartrate 25 MG TAB PO SCH ×2 (09:02→21:02)
[2017-08-14] MEDS: Oseltamivir 75 MG CAP PO SCH ×2 (09:04→18:47)
[2017-08-14] MEDS: Famotidine 20 MG TAB PO SCH ×2 (09:04→21:03)
[2017-08-14] MEDS: Ondansetron ODT 4 MG TAB PO SCH (09:04)
[2017-08-14] MEDS: Collagenase 250 UNITS/GM Ointment 30 GM TUBE TOP SCH (09:04)
[2017-08-14] MEDS: Aspirin 81 mg Enteric Coated Tablet PO SCH (09:04)
[2017-08-14] MEDS: Furosemide 40 MG TAB PO SCH (09:04)
[2017-08-14] MEDS: traMADol HCl 50 MG TAB PO PRN ×2 (09:10→21:01)
[2017-08-14] MEDS: Acetaminophen 325 MG TAB PO PRN (09:10)
[2017-08-14] MEDS: Potassium Chloride 20 MEQ TAB PO SCH (15:11)
--- NOTE | 2017-08-14 21:00 | PRG ---
DATE OF SERVICE: 08/14/2017 SUBJECTIVE: The patient lying in bed with no complaints except for minimal sacral pain aside of a sa cral ulcer that required recent debridement and found to be stage 3 to 4. He is eating well with no complaints of cough, shortness of breath, and is resolving his influenza infection. OBJECTIVE: VITAL SIGNS: Show blood pressure is 145/68, temperature 96, pulse 80, respirations 17, O2 sats 98% o n 2 liters. LUNGS: Clear. HEART: Cardiac examination showed regular rhythm. ABDOMEN: Soft and nontender. SKIN AND EXTREMITIES: Display sacral decubitus wound VAC in place. NEUROLOGIC: Shows decreased sensation to pinprick below the waist. ASSESSMENT: 1. Resolving stage 3 to 4 sacral decubitus with wound VAC. 2. Peripheral neuropathy and demyelinating axonal neuropathy with weakness and numbness in the legs, stable. 3. Diastolic dysfunction, stable. 4. Hypertension, stable. 5. Severe aortic stenosis, status post percutaneous transvenous aortic valve replacement. 6. Benign prostatic hypertrophy status post TURP. PLAN: Continue PT, OT. Continue wound VAC care. We will hold Eliquis and Plavix per recommendation surgeon.
[2017-08-14] MEDS: Guaifenesin DM 100-10/5 ML UDCUP PO PRN (21:28)
[2017-08-15] MEDS: Metoprolol Tartrate 25 MG TAB PO SCH ×2 (09:33→20:59)
[2017-08-15] MEDS: Oseltamivir 75 MG CAP PO SCH ×2 (09:33→17:54)
[2017-08-15] MEDS: Famotidine 20 MG TAB PO SCH ×2 (09:33→20:59)
[2017-08-15] MEDS: Aspirin 81 mg Enteric Coated Tablet PO SCH (09:33)
[2017-08-15] MEDS: Gabapentin 300 MG CAP PO SCH ×3 (09:33→20:59)
[2017-08-15] MEDS: Ondansetron ODT 4 MG TAB PO SCH (09:33)
[2017-08-15] MEDS: Furosemide 40 MG TAB PO SCH (09:34)
[2017-08-15] MEDS: Collagenase 250 UNITS/GM Ointment 30 GM TUBE TOP SCH (09:37)
[2017-08-15] MEDS: Potassium Chloride 20 MEQ TAB PO SCH (17:54)
[2017-08-15] MEDS: traMADol HCl 50 MG TAB PO PRN (17:55)
[2017-08-15] MEDS: Acetaminophen 325 MG TAB PO PRN (17:55)
--- NOTE | 2017-08-15 19:27 | PRG ---
DATE OF SERVICE: 08/15/2017. SUBJECTIVE: The patient is lying in bed, requesting Ray catheter. He states that he is unable to get up and use the urinal and he is soiling his wound VAC. Denying any cough or shortness of breath. He is having occasional cough with no shortness of breath. OBJECTIVE: VITAL SIGNS: Temperature 97.8, pulse 73, respirations 20, O2 sats 97%, blood pressure 116/64. LUNGS: Show few crackles in the bases. CARDIAC: Examination displays regular rhythm. No gallops or murmurs. ABDOMEN: Soft, nontender. SKIN and EXTREMITIES: Show sacral decubitus wound VAC in place. ASSESSMENT: 1. Resolving stage 3-4 sacral decubitus. 2. Stable peripheral neuropathy and demyelinating axonal neuropathy with weakness, numbness in the l egs make him difficult to ambulate to the bathroom. 2. Stable diastolic function. 3. Stable hypertension. 4. Stable aortic stenosis. 5. Stable benign prostatic hypertrophy. 6. Recurrent cough. PLAN: 1. Obtain chest x-ray. 2. Order Ray catheter in the next several days at patient request. 3. Continue PT, OT and wound VAC.
--- NOTE | 2017-08-15 20:01 | RAD ---
PORTABLE CHEST: History: Cough. Comparison: 08-03-17 FINDINGS: The lungs remain clear. No infiltrates seen. Heart is mildly enlarged with post op sternotomy change and pacemaker leads which are unchanged in position. IMPRESSION: No acute finding or interval change noted. POS: [facility]
[2017-08-16] MEDS: Oseltamivir 75 MG CAP PO SCH ×2 (07:55→16:50)
[2017-08-16] MEDS: Furosemide 40 MG TAB PO SCH (07:55)
[2017-08-16] MEDS: Aspirin 81 mg Enteric Coated Tablet PO SCH (08:34)
[2017-08-16] MEDS: Gabapentin 300 MG CAP PO SCH ×3 (08:34→20:38)
[2017-08-16] MEDS: Famotidine 20 MG TAB PO SCH ×2 (08:35→20:38)
[2017-08-16] MEDS: Metoprolol Tartrate 25 MG TAB PO SCH ×2 (08:35→20:38)
[2017-08-16] MEDS: Ondansetron ODT 4 MG TAB PO SCH (08:36)
[2017-08-16] MEDS: Collagenase 250 UNITS/GM Ointment 30 GM TUBE TOP SCH (08:39)
[2017-08-16] MEDS: traMADol HCl 50 MG TAB PO PRN ×3 (08:42→20:38)
--- NOTE | 2017-08-16 10:39 | PRG ---
DATE OF SERVICE: 08/16/2017 DATE OF ADMISSION: 08/04/2017 HISTORY OF PRESENT ILLNESS: Mr. Matos is a 77-year-old white male with a TAVR done at [facility] in [place]. Transferred by ambulance to home, which is about an hour. He had something rubbing against the coccyx when he arrived home. He had some type of injury there. He did not come in to [facility] for about 2 weeks. When he did he had a sacral decubitus. He was referred to Dr. Lane for [facility] and [facility], but his insurance did not cover that. Eventually, when up at [facility] emergency room at [facility] was admitted and Dr. Farmer did a debridement of his coccyx. He had stage 4 ulcer. Eventually, a wound VAC was placed and he was transferred to [facility] for continued physical therapy and occupational therapy. During this time, the patient also developed fluid infection and was started on Tamiflu and minocycli ne. The patient has done actually very well and is presently here for wound VAC. OBJECTIVE: VITAL SIGNS: Reveal blood pressure this morning 127/63, pulse 83-85, respirations 17-20, O2 sat 96-9 8%, T-max 98.1. GENERAL: This is a well-developed, well-nourished, very pleasant white male, in no apparent distress at this time. HEENT: Reveals normocephalic, nontraumatic cranium. Pupils are equally round and reactive. Extraoc ular movements intact. Nose and throat are slightly dry. NECK: Supple, without masses, nodes, or bruits. LUNGS: Chest is clear to auscultation. No rales, rhonchi, or wheezes are heard. CARDIOVASCULAR: Reveals a regular rate and rhythm without murmurs, gallops, or rubs. ABDOMEN: Soft, nontender, without organomegaly, normal bowel sounds are noted. No rebound or guardi ng is noted. EXAM: Deferred. EXTREMITIES: Reveal no clubbing, cyanosis, or edema. Sacral decubitus still has a wound VAC in [facility], and the patient had a Ray placed at his request. IMAGING: Chest x-ray yesterday was unremarkable. ASSESSMENT: 1. Resolving stage 3 to 4 sacral decubitus. 2. Peripheral neuropathy with demyelinating axonal neuropathy with significant weakness. 3. Diastolic dysfunction. 4. Hypertension. 5. Aortic stenosis. 6. Benign prostatic hypertrophy. 7. Recurrent cough. 8. Cerebrovascular accident in the distant past. 9. Generalized weakness. PLAN: 1. Continue antibiotics. 2. Continue Zofran p.r.n. 3. Stress ulcer prophylaxis. 4. Decubitus precautions. 5. Deep vein thrombosis prophylaxis. 6. Ray catheter. 7. Continue physical therapy and occupational therapy. 8. Wound VAC care.
[2017-08-16] MEDS: Potassium Chloride 20 MEQ TAB PO SCH (12:03)
[2017-08-17] MEDS: traMADol HCl 50 MG TAB PO PRN ×2 (05:34→20:37)
[2017-08-17] MEDS: Oseltamivir 75 MG CAP PO SCH ×2 (08:53→16:22)
[2017-08-17] MEDS: Aspirin 81 mg Enteric Coated Tablet PO SCH (08:53)
[2017-08-17] MEDS: Famotidine 20 MG TAB PO SCH ×2 (08:53→20:37)
[2017-08-17] MEDS: Ondansetron ODT 4 MG TAB PO SCH (08:53)
[2017-08-17] MEDS: Metoprolol Tartrate 25 MG TAB PO SCH ×2 (08:53→20:37)
[2017-08-17] MEDS: Furosemide 40 MG TAB PO SCH (08:53)
[2017-08-17] MEDS: Gabapentin 300 MG CAP PO SCH ×3 (08:53→20:37)
[2017-08-17] MEDS: Collagenase 250 UNITS/GM Ointment 30 GM TUBE TOP SCH (08:54)
[2017-08-17] MEDS: Potassium Chloride 20 MEQ TAB PO SCH (12:14)
--- NOTE | 2017-08-17 19:43 | PRG ---
DATE OF SERVICE: 08/17/2017 HISTORY OF PRESENT ILLNESS: Mr. Matos is a very pleasant 77-year-old white male admitted to [facility] and had a TAVR done. Postoperatively, he stayed several days because he had several proble ms, but eventually was transferred home by ambulance. He said during that transfer, something kept r ubbing against his coccyx. When he got home, he had some type of abrasion there. About 2 weeks late r, he showed up in my office and noted to have a sacral decubitus. He was referred to Dr. Domingo mustafa [facility], but did not follow up with [facility], because he said his insurance did no t cover it and he was not going to pay 800 dollars. Eventually, he ended up in the emergency room at [facility] for debridement of his sacral decubitus by Dr. Farmer. Postoperatively, he was tr ansferred to [facility] for continued minocycline along with physical therapy and occ upational therapy. While the patient was on hospital care at [place], he developed a flu and was also started on [place] flu, which he has finished: OBJECTIVE: VITAL SIGNS: Today revealed, blood pressure 107/57, pulse 79 to 80, respirations 18, O2 sat 92%-98% on 2 liters, T-max 99.3. Labs are ordered for tomorrow morning. GENERAL: On physical exam, this is a well-developed, well-nourished, very pleasant white male in no apparent distress at this time. HEENT: Reveals normocephalic, nontraumatic cranium. Pupils are equally round and reactive. Extraoc ular movements intact. Nose and throat are slightly dry, but clear. NECK: Supple without masses, nodes, or bruits. CHEST: Clear to auscultation. No rales, no rhonchi, no wheezes are heard. CARDIOVASCULAR: Reveals a regular rate and rhythm without murmurs, gallops, or rubs. ABDOMEN: Soft and nontender without organomegaly. Slightly obese. Normal bowel sounds are noted in all 4 quadrants. No rebound or guarding is noted. : Deferred. EXTREMITIES: Reveal no clubbing, cyanosis, or edema. BACK: The patient states that the sacral wound aches when he lays on it, so therefore he is lying on his side. He has a Ray in place at his request. IMPRESSION: 1. Stage III to IV sacral decubitus, presently with a wound VAC. 2. Peripheral neuropathy with demyelinating axonal neuropathy with significant weakness. 3. Diastolic dysfunction. 4. Hypertension. 5. Aortic stenosis. 6. Benign prostatic hypertrophy. 7. History of cerebrovascular accident in the distant past. 8. Generalized weakness. PLAN: 1. Continue present medications. 2. Zofran p.r.n. 3. Stress ulcer prophylaxis. 4. Decubitus precautions. 5. Deep venous thrombosis prophylaxis. 6. Ray catheter. 7. Continue wound VAC care. 8. Continue physical therapy and occupational therapy.
[2017-08-18 05:50] LABS: #Basophils 0.2 thou/uL (0.0-0.2); #Eosinphils 0.3 thou/uL (0.0-0.7); #Lymphocytes 0.9 thou/uL (1.20-3.40); #Monocytes 1.1 thou/uL (0.11-0.59); %Basophils 1.8 % (0.0-1.0); %Eosinophils 2.8 % (0.0-10.0); %Lymphocytes 9.5 % (21.0-51.0); %Monocytes 11.4 % (0.0-10.0); %Neutrophils 74.5 % (42.0-75.0); Hemoglobin 10.9 g/dL (14.0-18.0); Mean Corpuscular HGB CONC 31.2 g/dL (32.0-36.0); Mean Corpuscular Hemoglobin 27.7 pg (27.0-31.0); Mean Corpuscular Volume 88.8 fl (80.0-94.0); Mean Platelet Volume 8.8 fL (7.4-10.4); Platelet Count 193 thou/uL (130-400); RBC Distribution Width 14.1 % (11.5-14.5); Red Blood Cell (RBC) Count 3.93 mill/uL (4.70-6.10); White Blood Cell (WBC) Count 9.3 thou/uL (4.8-10.8)
[2017-08-18 06:02] LABS: ALT (SGPT) Less than 6 U/L (8-55); AST (SGOT) 14 U/L (5-34); Albumin 3.1 g/dL (3.4-4.8); Alkaline Phosphatase 57 U/L (40-150); Anion Gap 13 mmol/L (10-20); BUN (Urea Nitrogen) 16 mg/dL (8.4-25.7); Bilirubin, Total 0.4 mg/dL (0.2-1.2); Calc. Creatinine Clearance 101 mL/min (70-130); Calcium 9.1 mg/dL (7.8-10.44); Carbon Dioxide 28 mmol/L (23-31); Chloride 102 mmol/L (98-107); Estimated GFR-MDRD 87; Globulin 3.4 g/dL (2.4-3.5); Glucose 100 mg/dL (83-110); Protein, Total 6.5 g/dL (5.8-8.1); Sodium 139 mmol/L (136-145)
[2017-08-18] MEDS: Oseltamivir 75 MG CAP PO SCH ×2 (08:41→16:30)
[2017-08-18] MEDS: Ondansetron ODT 4 MG TAB PO SCH (08:41)
[2017-08-18] MEDS: Aspirin 81 mg Enteric Coated Tablet PO SCH (08:41)
[2017-08-18] MEDS: Gabapentin 300 MG CAP PO SCH ×3 (08:43→20:59)
[2017-08-18] MEDS: Famotidine 20 MG TAB PO SCH ×2 (08:43→20:59)
[2017-08-18] MEDS: Metoprolol Tartrate 25 MG TAB PO SCH ×2 (08:43→20:59)
[2017-08-18] MEDS: Furosemide 40 MG TAB PO SCH (08:43)
[2017-08-18] MEDS: Collagenase 250 UNITS/GM Ointment 30 GM TUBE TOP SCH (10:51)
[2017-08-18 12:06] LABS: CRP (Inflammatory) 8.08 mg/dL (= or < 0.5)
[2017-08-18] MEDS: Potassium Chloride 20 MEQ TAB PO SCH (12:12)
[2017-08-18] MEDS: traMADol HCl 50 MG TAB PO PRN ×2 (13:12→18:53)
[2017-08-18] MEDS: Acetaminophen 325 MG TAB PO PRN ×2 (16:30→20:59)
--- NOTE | 2017-08-18 23:00 | PRG ---
DATE OF SERVICE: 08/18/2017 SUBJECTIVE: Mr. Matos is a very pleasant 77-year-old white male who had a TAVR done at [facility]. Postoperatively, he was stable and eventually transferred home via ambulance. He states on hi s ride home, he had something rubbing against his coccyx. Two weeks later, he shows up in my office with a large decubitus ulcer which was stable. We have arranged for him to see Dr. Lane [facility]. He refused home health because there was some type of copay he pickering d to pay. The patient was then presented to the emergency room where he was admitted to the hospital and had a sacral decubitus debridement by Dr. Farmer. Postoperatively, he was transferred to [facility] for continued medicine along with physical therapy and occupational therapy. The patient states he is doing better. He is eating better. He has no complaints today. OBJECTIVE: VITAL SIGNS: Reveal blood pressure this morning 123/61, pulse 79-83, respirations 20, O2 sat 92-95% on room air, T-max 98.3. GENERAL: This is a well-developed, well-nourished, obese white male in no apparent distress at this time. HEENT: Reveals normocephalic, nontraumatic cranium. Pupils are equally round and reactive. Extraoc ular movements are intact. Nose and throat are slightly dry. NECK: Supple, without masses, nodes, or bruits. CHEST: Clear to auscultation. No rales, rhonchi, or wheezes are heard. CARDIOVASCULAR: Reveals a regular rate and rhythm without murmurs, gallops, or rubs. ABDOMEN: Obese, soft, nontender, without organomegaly, normal bowel sounds are noted. No rebound or guarding is noted. GENITOURINARY: Deferred. EXTREMITIES: Reveal no clubbing, cyanosis, or edema. BACK: Reveals the patient's sacral wound is still with a wound VAC. He still has quite a bit of ser ous drainage. Wound care tells me that he had approximately 356 mL of serous fluid over the 24 hours . He has a Ray catheter in place. IMPRESSION: 1. Stage IV sacral decubitus, presently on with a wound VAC. 2. Peripheral neuropathy with demyelinating and axonal neuropathy with significant weakness. 3. Diastolic dysfunction. 4. Hypertension. 5. Aortic stenosis, status post transcatheter mitral valve replacement. 6. Benign prostatic hypertrophy. 7. History of cerebrovascular accident in the distant past. 8. Generalized weakness. PLAN: 1. Continue present medications. 2. Continue wound VAC. 3. Stress ulcer prophylaxis. 4. Decubitus precautions. 5. Deep venous thrombosis prophylaxis. 6. Ray catheter. 7. Continue wound VAC. 8. Physical therapy and occupational therapy.
[2017-08-19] MEDS: Metoprolol Tartrate 25 MG TAB PO SCH ×2 (08:42→20:57)
[2017-08-19] MEDS: Furosemide 40 MG TAB PO SCH (08:42)
[2017-08-19] MEDS: Gabapentin 300 MG CAP PO SCH ×3 (08:42→20:57)
[2017-08-19] MEDS: Famotidine 20 MG TAB PO SCH ×2 (08:42→20:56)
[2017-08-19] MEDS: Oseltamivir 75 MG CAP PO SCH (08:43)
[2017-08-19] MEDS: Aspirin 81 mg Enteric Coated Tablet PO SCH (08:43)
[2017-08-19] MEDS: Collagenase 250 UNITS/GM Ointment 30 GM TUBE TOP SCH (08:44)
[2017-08-19] MEDS: Ondansetron ODT 4 MG TAB PO SCH (08:44)
[2017-08-19] MEDS: traMADol HCl 50 MG TAB PO PRN ×2 (12:17→19:12)
[2017-08-19] MEDS: Potassium Chloride 20 MEQ TAB PO SCH (12:17)
--- NOTE | 2017-08-19 21:52 | PRG ---
DATE OF ADMISSION: 08/04/2017 DATE OF PROGRESS NOTE: 08/19/2017 HISTORY OF PRESENT ILLNESS: Mr. Matos is a very pleasant 77-year-old white male that had TAVR done at [facility]. Postoperatively, he was transferred home via ambulance. He states on the right home, he had something rubbing against his coccyx on his stretcher. Two weeks later he showed up in my office with very large decubitus ulcer. We referred him to Dr. Lane and for outpatient home h ealth with physicians. He did not get his home health because he refused to pay the copay. Patient eventually presented to the emergency room where he was admitted to the hospital, had a sacral decubi tus debridement by Dr. Farmer. Postoperatively, he was transferred to [facility] for continued medication along with physical therapy and occupational therapy. SUBJECTIVE: The patient states he is doing well today. He has no significant pain this morning. He states he is eating better. He is not nauseated and just feels much better. He is wondering how lo ng it will take for that decubitus area to close. PHYSICAL EXAMINATION: VITAL SIGNS: Blood pressure this morning was 137/63, pulse 56 to 82, respirations 20, O2 saturation 99%. T-max 98.9. GENERAL: This is a well-developed, well-nourished, obese white male in no apparent distress at this time. HEENT: Reveals normocephalic, nontraumatic cranium. Pupils are equally round and reactive. Extraoc ular movements are intact. Nose and throat are slightly dry, but clear. NECK: Supple, without masses, nodes, or bruits. LUNGS: Chest is clear to auscultation. No rales, no rhonchi, no wheezes are heard. CARDIOVASCULAR: Reveals a regular rate and rhythm without murmurs, gallops, or rubs. ABDOMEN: Obese. It is soft and nontender. No organomegaly is noted. Normal bowel sounds are noted in all 4 quadrants. No rebound or guarding is noted. GENITOURINARY: Deferred. EXTREMITIES: Reveals no clubbing, cyanosis, or edema. The patient's sacral wound is covered with th e wound VAC today, still has some serous drainage. LABORATORY DATA: Labs done yesterday revealed a white count of 9300 with hemoglobin 10.9, hematocrit 34.9, platelet count 193,000. His sed rate was greater than 120. Sodium was 139, potassium 4.0, ch loride 102, carbon dioxide 28 with a BUN 16, creatinine 0.85. His AST is 14, ALT is less than 6. C- reactive protein was 8.08. Albumin 3.1, globulin 3.4. Prealbumin was 13. IMPRESSION: 1. Stage IV sacral decubitus, presently with wound VAC. 2. Peripheral neuropathy with demyelinating axonal neuropathy and significant weakness. 3. Diastolic dysfunction. 4. Hypertension. 5. Aortic stenosis, status post TAVR. 6. Benign prostatic hypertrophy. 7. History of cerebrovascular accident in the distant past. 8. Generalized weakness. PLAN: 1. Continue present meds. 2. Continue wound VAC. 3. Stress ulcer prophylaxis. 4. Decubitus precautions. 5. Deep venous thrombosis prophylaxis. 6. Ray catheter. 7. Continue wound VAC. 8. Physical therapy and occupational therapy.
[2017-08-20] MEDS: Collagenase 250 UNITS/GM Ointment 30 GM TUBE TOP SCH (09:01)
[2017-08-20] MEDS: Ondansetron ODT 4 MG TAB PO SCH (09:01)
[2017-08-20] MEDS: Gabapentin 300 MG CAP PO SCH ×3 (09:01→20:52)
[2017-08-20] MEDS: Aspirin 81 mg Enteric Coated Tablet PO SCH (09:01)
[2017-08-20] MEDS: Famotidine 20 MG TAB PO SCH ×2 (09:01→20:52)
[2017-08-20] MEDS: Metoprolol Tartrate 25 MG TAB PO SCH ×2 (09:01→20:52)
[2017-08-20] MEDS: Furosemide 40 MG TAB PO SCH (09:01)
[2017-08-20] MEDS: Potassium Chloride 20 MEQ TAB PO SCH (12:19)
[2017-08-20] MEDS: traMADol HCl 50 MG TAB PO PRN ×2 (12:19→20:52)
--- NOTE | 2017-08-21 00:38 | PRG ---
DATE OF SERVICE: 08/20/2017 HISTORY OF PRESENT ILLNESS: Mr. Matos is a 77-year-old white male who had a TAVR done at [facility]. Postoperatively, he had to be transferred home by a long ambulance ride. On the way back, [facility] had something rubbing against his coccyx. Two weeks later, he shows off in my office with a large decubitus ulcer. He was referred to Dr. Lane for evaluation and for outpatient home health with [facility]. He would not pay his copay, so he did not get home health therapy done. He eventually pr esented to the emergency room where he was evaluated and admitted to the hospital for sacral decubitu s debridement by Dr. Farmer. Postoperatively, he was transferred to [facility] for co ntinued medication along with physical therapy and occupational therapy. SUBJECTIVE: The patient states he has been doing very well, but he has had a lot more pain in the la st couple days. We did take off his wound VAC and looked at his wound and for some reason, it is get ting dusky and the granulation tissue at the upper part of it is pretty much sloughed. The only expl anation that has been lying on it too much, so we instructed him to turn at least every 2 hours and d oes not lie on it directly. OBJECTIVE: VITAL SIGNS: Blood pressure this morning was 138/62, pulse 79-85, respirations 20, O2 sat 96-97%, T- max 98.2. GENERAL: This is a well-developed, well-nourished, obese white male in no apparent distress at this time. HEENT: Reveals normocephalic, nontraumatic cranium. Pupils are equally round and reactive. Extraoc ular movements are intact. Nose and throat are slightly dry. NECK: Supple, without masses, nodes, or bruits. LUNGS: Chest clear to auscultation. No rales, rhonchi, no wheezes or cough is heard. HEART: Reveals a regular rate and rhythm without murmurs, gallops or rubs. ABDOMEN: Obese. Soft, nontender, without organomegaly. No rebound or guarding is noted. GENITOURINARY: Deferred. EXTREMITIES: Reveal no clubbing, cyanosis, or edema. The patient's sacral wound was unwrapped from the wound VAC and I viewed it. It is still approximately about 6 cm and about a centimeter deep. It has some bloating and some discoloration around it. We will instruct the patient to not to lie on i t, to stay off it. ASSESSMENT: 1. Stage IV sacral decubitus, presently a wound VAC. 2. Peripheral neuropathy with demyelinating and axonal neuropathy and significant weakness. 3. Diastolic dysfunction. 4. Hypertension. 5. Aortic stenosis, status post TAVR. 6. BPH. 7. History of cerebrovascular accident in the distant past. 8. Generalized weakness. PLAN: 1. Continue present medications. 2. Have the patient never lie on his wound VAC. 3. Stress ulcer prophylaxis. 4. Decubitus precautions. 5. DVT prophylaxis. 5. Ray catheter. 6. Continue wound VAC. 7. Physical therapy and occupational therapy.
[2017-08-21] MEDS: Furosemide 40 MG TAB PO SCH (08:52)
[2017-08-21] MEDS: Aspirin 81 mg Enteric Coated Tablet PO SCH (08:52)
[2017-08-21] MEDS: Metoprolol Tartrate 25 MG TAB PO SCH ×2 (08:52→20:50)
[2017-08-21] MEDS: Famotidine 20 MG TAB PO SCH ×2 (08:53→20:50)
[2017-08-21] MEDS: Collagenase 250 UNITS/GM Ointment 30 GM TUBE TOP SCH (08:53)
[2017-08-21] MEDS: Ondansetron ODT 4 MG TAB PO SCH (08:53)
[2017-08-21] MEDS: Gabapentin 300 MG CAP PO SCH ×3 (08:53→20:50)
[2017-08-21] MEDS: Potassium Chloride 20 MEQ TAB PO SCH (12:33)
[2017-08-21] MEDS: traMADol HCl 50 MG TAB PO PRN ×2 (14:57→20:50)
--- NOTE | 2017-08-21 16:11 | PRG ---
DATE OF SERVICE: 08/21/2017 SUBJECTIVE: Mr. Matos is resting comfortably. He is tolerating his wound VAC. [facility] Denies any concerns or questions. OBJECTIVE: VITAL SIGNS: He is afebrile. Heart rate is 80, respirations 18, oxygen saturation 94% and blood pre ssure 130/62. CARDIOVASCULAR SYSTEM: S1, S2 plus. RESPIRATORY SYSTEM: Normal vesicular breath sounds. ABDOMEN: Soft and nontender. Bowel sounds heard in all quadrants. EXTREMITIES: Without cyanosis or clubbing. CENTRAL NERVOUS SYSTEM: Generalized weakness. IMPRESSION: 1. Stage IV sacral decubitus with wound VAC placement. 2. Peripheral neuropathy with deconditioning. 3. Chronic diastolic congestive heart failure. 4. Hypertension, well controlled. 5. Benign prostatic hypertrophy. 6. Aortic stenosis, status post transcatheter aortic valve replacement. PLAN: 1. Continue current medications. 2. Wound VAC. 3. Nutritional support. 4. DVT and stress ulcer prophylaxis. 5. Decubitus precautions. 6. Ray catheter care. 7. Routine laboratory values. 8. Physical therapy. 9. Discussed with nursing, no concerns.
[2017-08-22] MEDS: Acetaminophen 325 MG TAB PO PRN ×2 (08:08→18:37)
[2017-08-22] MEDS: traMADol HCl 50 MG TAB PO PRN ×2 (08:08→18:37)
[2017-08-22] MEDS: Aspirin 81 mg Enteric Coated Tablet PO SCH (08:47)
[2017-08-22] MEDS: Metoprolol Tartrate 25 MG TAB PO SCH ×2 (08:47→21:24)
[2017-08-22] MEDS: Furosemide 40 MG TAB PO SCH (08:47)
[2017-08-22] MEDS: Gabapentin 300 MG CAP PO SCH ×3 (08:47→21:24)
[2017-08-22] MEDS: Famotidine 20 MG TAB PO SCH ×2 (08:47→21:24)
[2017-08-22] MEDS: Ondansetron ODT 4 MG TAB PO SCH (08:48)
[2017-08-22] MEDS: Collagenase 250 UNITS/GM Ointment 30 GM TUBE TOP SCH (08:48)
--- NOTE | 2017-08-22 11:08 | PRG ---
DATE OF SERVICE: 08/22/2017 SUBJECTIVE: Mr. Matos is doing well. Denies any complaints, resting comfortably, tolerating his wo und VAC. He states that he is having pain, but the pain medicines are helping. No fever or chills. OBJECTIVE: VITAL SIGNS: He is afebrile, heart rate 80, respirations 20, oxygen saturation 96%, and blood pressu re 144/54. CARDIOVASCULAR SYSTEM: S1, S2 plus. RESPIRATORY SYSTEM: Normal vesicular breath sounds. ABDOMEN: Soft, nontender, bowel sounds heard in all quadrants. EXTREMITIES: Without cyanosis or clubbing. Wound VAC in place. IMPRESSION: 1. Stage IV sacral decubitus: 2. Peripheral neuropathy. 3. Chronic diastolic congestive heart failure. 4. Hypertension. 5. Benign prostatic hypertrophy. PLAN: 1. Continue current medications. 2. Wound VAC. 3. Pain control. 4. Decubitus precautions. 5. DVT and stress ulcer prophylaxis. 6. Routine laboratory values. 7. Physical therapy. Discussed with patient in detail and all questions answered.
[2017-08-22] MEDS: Potassium Chloride 20 MEQ TAB PO SCH (12:11)
[2017-08-23] MEDS: Furosemide 40 MG TAB PO SCH (07:55)
[2017-08-23] MEDS: Aspirin 81 mg Enteric Coated Tablet PO SCH (07:55)
[2017-08-23] MEDS: Famotidine 20 MG TAB PO SCH ×2 (07:55→21:07)
[2017-08-23] MEDS: Metoprolol Tartrate 25 MG TAB PO SCH ×2 (07:57→21:07)
[2017-08-23] MEDS: Gabapentin 300 MG CAP PO SCH ×3 (07:58→21:06)
[2017-08-23] MEDS: Ondansetron ODT 4 MG TAB PO SCH (07:58)
[2017-08-23] MEDS: traMADol HCl 50 MG TAB PO PRN ×2 (08:01→17:45)
--- NOTE | 2017-08-23 10:19 | PRG ---
DATE OF SERVICE: 08/23/2017 HISTORY OF PRESENT ILLNESS: Mr. Matos is a very pleasant 77-year-old white male that had a TAVR don e at [facility], was transferred by ambulance to his home which was over an hour. Unfortunatel y, something rubbed his coccyx at that time and he developed a large sacral decubitus. He was seen i n my office 2 weeks later and the diagnosis was made. He was referred to Dr. Lane and outpatient wound prison health with [facility]. Apparently his home health was not carried under his insuran ce, refused to pay the copay, so he presented himself to the emergency room where he was evaluated an d admitted to the hospital and sacral decubitus debridement by Dr. Farmer was done. Postoperatively roosevelt liu was transferred to [facility] for continued medication along with physical therapy and occupational therapy, and wound care. SUBJECTIVE: The patient has no complaints. He is not having any pain when he lays on that wound car e site. Last Wednesday when I examined it, the wound was somewhat dusky and not as happy and granulated as it was. We will reevaluate that later today after therapy looks at it. He states he had a good weekend and is eating well. VITAL SIGNS: Blood pressure is 100/55, pulse 78 to 80, respirations 20, O2 saturation 94% on room ai r. T-max 97.6. LABORATORY DATA: No labs were done. PHYSICAL EXAMINATION: GENERAL: This is a well-developed, well-nourished, slightly obese white male in no apparent distress at this time. HEENT: Reveals normocephalic, nontraumatic cranium. Pupils are equally round and reactive. Extraoc ular movements intact. Nose and throat are slightly dry. NECK: Supple, without masses, nodes or bruits. LUNGS: Chest is clear to auscultation. No rales, rhonchi or wheezes are heard. No cough is noted. HEART: Reveals a regular rate and rhythm without murmurs, gallops or rubs. ABDOMEN: Obese, soft, nontender, without organomegaly. Normal bowel sounds are noted. No rebound o r guarding is noted. : Deferred. EXTREMITIES: Reveal no clubbing, cyanosis or edema. Sacral wound was unwrapped last week. I have n ot seen it today yet. Therapy will change the wound VAC and give me a call. IMPRESSION: 1. Stage IV sacral decubitus ulcer. Wound VAC not as clean and dry and healing from last Wednesday. W noe encouraged the patient not to lay on it and to turn every q.2h. 2. Peripheral neuropathy with demyelinating axonal neuropathy. 3. Diastolic dysfunction. 4. Hypertension. 5. Aortic stenosis, status post TAVR. 6. Benign prostatic hypertrophy. 7. Cerebrovascular accident in the distant past. 8. Generalized weakness. PLAN: 1. Continue present medications. 2. Change wound VAC and will reevaluate wound. 3. Encourage the patient to turn q.2h., not lay on the wound VAC. 4. Stress ulcer prophylaxis. 5. Decubitus precautions. 6. DVT prophylaxis. 7. Ray cath.. 8. Continue wound VAC for right now. 9. Physical therapy and occupational therapy.
[2017-08-23] MEDS: Potassium Chloride 20 MEQ TAB PO SCH (11:44)
--- NOTE | 2017-08-23 18:27 | CT ---
CT PELVIS WITHOUT CONTRAST ENHANCEMENT: History: Sacral decubitus ulcer. Evaluation for underlying osteomyelitis. FINDINGS: A Ray catheter is in place. There are no signs of any pelvic mass or any significant adenopathy. Pr ostate calcifications are present. The infrarenal aorta measures approximately 2.5 cm, mildly ectatic but no aneurysmal. There are arthritic changes of both hips and the lower lumbar spine as well as th e SI joints. There is a more midline sacral decubitus ulcer that contacts the distal coccygeal segment and there i s some minimal sclerosis associated with this. This could indicate some reactive change. I cannot def initely exclude some early osteomyelitis. There is no gross bony destructive change. IMPRESSION: Midline sacral decubitus ulcer which contacts the lower coccygeal segments associated some slight bon y sclerosis. I cannot exclude this as being early osteomyelitis versus some reactive osteitis. POS: FREDO
[2017-08-24] MEDS: traMADol HCl 50 MG TAB PO PRN ×3 (06:52→21:09)
[2017-08-24] MEDS: Aspirin 81 mg Enteric Coated Tablet PO SCH (07:56)
[2017-08-24] MEDS: Furosemide 40 MG TAB PO SCH (07:56)
[2017-08-24] MEDS: Metoprolol Tartrate 25 MG TAB PO SCH ×2 (07:57→21:09)
[2017-08-24] MEDS: Famotidine 20 MG TAB PO SCH ×2 (07:57→21:09)
[2017-08-24] MEDS: Gabapentin 300 MG CAP PO SCH ×3 (07:57→21:09)
[2017-08-24] MEDS: Ondansetron ODT 4 MG TAB PO SCH (07:58)
[2017-08-24] MEDS: Potassium Chloride 20 MEQ TAB PO SCH (12:33)
--- NOTE | 2017-08-24 20:06 | PRG ---
DATE OF ADMISSION: 08/04/2017 DATE OF SERVICE: 08/24/2017 HISTORY OF PRESENT ILLNESS: Mr. Matos is a very pleasant 77-year-old white male with a sacral decub itus ulcer stage 4. He was seen by Dr. Farmer and had a debridement done. Eventually, he was transfe rred to [facility] for physical therapy, occupational therapy, wound care and wound V AC. The patient has no complaints today. He states he has not had any pain on his back at this time. Approximately 4 days ago, the patient's wounds started getting dusky and loss some of his granulation along with had some dark areas of loss of vascular support. The patient was sent for CT scan for possible evaluation for osteomyelitis, which revealed inflammati on, but no positive proof for osteomyelitis. After significant discussion, the patient has an appointment with Dr. Lane tomorrow, wound care. OBJECTIVE: VITAL SIGNS: Today reveal blood pressure 136/56, pulse 76-80, respirations 20, O2 sat 93% to 98% on room air, temperature max 96.8. GENERAL: This is a well-developed, well-nourished, very pleasant white male, in no apparent distress at this time. HEENT: Reveals normocephalic, nontraumatic cranium. Pupils are equally round and reactive. Extraoc ular movements are intact. Nose and throat are slightly dry. NECK: Supple, without mass, nodes or bruits. LUNGS: Chest is clear to auscultation, no rales, no rhonchi, no wheezes are heard. CARDIOVASCULAR: Heart reveals a regular rate and rhythm without murmurs, gallops or rubs. ABDOMEN: Obese, soft, nontender, without organomegaly. Normal bowel sounds are noted. No rebound o r guarding is noted. : Deferred. Ray catheter is in place. EXTREMITIES: Reveal no clubbing, cyanosis or edema. Sacral wound reveals a wound VAC was taken off because of increased bloody drainage. Also, the patie nt may have osteomyelitis that is a contraindication for the wound VAC. LABORATORY DATA: Laboratories will be done tomorrow. IMPRESSION: 1. Stage IV sacral decubitus ulcer that has slowed down and stopped to possibly reverse to healing. 2. 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 3. Peripheral neuropathy. 4. Diastolic dysfunction. 5. Hypertension. 6. Aortic stenosis, status post transcatheter aortic valve replacement. 7. Benign prostatic hypertrophy. 8. Cerebrovascular accident in the distant past. 9. Generalized weakness. PLAN: 1. The patient will be seen by Dr. Lane tomorrow for her evaluation and her opinion on whether th is is osteomyelitis or not. 2. We will hold the wound VAC until Dr. Lane sees the patient. 3. We will have lab work tomorrow morning, so she will have some fresh labs. 4. Encourage the patient to turn every 2 hours and not lay on the wound VAC or sacral decubitus area . 5. Stress ulcer prophylaxis. 6. Decubitus precautions. 7. Deep venous thrombosis prophylaxis. 8. Ray catheter. 9. Physical therapy and occupational therapy. The patient will be seeing Dr. Lane tomorrow morning.
[2017-08-25 05:47] LABS: #Basophils 0.1 thou/uL (0.0-0.2); #Eosinphils 0.3 thou/uL (0.0-0.7); #Lymphocytes 1.2 thou/uL (1.20-3.40); #Neutrophils 6.6 thou/uL (1.40-6.50); %Basophils 0.9 % (0.0-1.0); %Eosinophils 3.7 % (0.0-10.0); %Lymphocytes 12.8 % (21.0-51.0); %Monocytes 11.1 % (0.0-10.0); %Neutrophils 71.5 % (42.0-75.0); Hemoglobin 11.5 g/dL (14.0-18.0); Mean Corpuscular HGB CONC 31.1 g/dL (32.0-36.0); Mean Corpuscular Hemoglobin 27.3 pg (27.0-31.0); Mean Corpuscular Volume 87.6 fl (80.0-94.0); Mean Platelet Volume 8.8 fL (7.4-10.4); Platelet Count 213 thou/uL (130-400); RBC Distribution Width 13.6 % (11.5-14.5); Red Blood Cell (RBC) Count 4.21 mill/uL (4.70-6.10); White Blood Cell (WBC) Count 9.3 thou/uL (4.8-10.8)
[2017-08-25 05:57] LABS: ALT (SGPT) 6 U/L (8-55); AST (SGOT) 17 U/L (5-34); Albumin 3.2 g/dL (3.4-4.8); Alkaline Phosphatase 58 U/L (40-150); Anion Gap 13 mmol/L (10-20); BUN (Urea Nitrogen) 17 mg/dL (8.4-25.7); Bilirubin, Total 0.4 mg/dL (0.2-1.2); Calc. Creatinine Clearance 99 mL/min (70-130); Calcium 9.5 mg/dL (7.8-10.44); Carbon Dioxide 28 mmol/L (23-31); Chloride 101 mmol/L (98-107); Estimated GFR-MDRD 86; Globulin 3.5 g/dL (2.4-3.5); Glucose 96 mg/dL (83-110); Protein, Total 6.7 g/dL (5.8-8.1); Sodium 138 mmol/L (136-145)
[2017-08-25] MEDS: Famotidine 20 MG TAB PO SCH ×2 (08:08→20:29)
[2017-08-25] MEDS: Metoprolol Tartrate 25 MG TAB PO SCH ×2 (08:08→20:29)
[2017-08-25] MEDS: Gabapentin 300 MG CAP PO SCH ×3 (08:08→20:29)
[2017-08-25] MEDS: traMADol HCl 50 MG TAB PO PRN ×2 (08:10→16:53)
[2017-08-25] MEDS: Aspirin 81 mg Enteric Coated Tablet PO SCH (08:10)
[2017-08-25] MEDS: Furosemide 40 MG TAB PO SCH (08:10)
[2017-08-25] MEDS: Ondansetron ODT 4 MG TAB PO SCH (08:23)
[2017-08-25] MEDS: Potassium Chloride 20 MEQ TAB PO SCH (12:26)
--- NOTE | 2017-08-25 12:33 | PRG ---
DATE OF SERVICE: 08/25/2017 DATE OF ADMISSION: 08/04/2017 HISTORY OF PRESENT ILLNESS: Mr. Matos is a very pleasant 77-year-old white male with sacral decubit us ulcer. He had debridement by Dr. Farmer and was transferred to [facility] where with physic al therapy, occupational therapy, wound care is gradually getting better. This past Wednesday, his woun ds started looking morel in dark and was not doing as well. We pulled the wound VAC off and the patie nt was seen by Dr. Lane this morning. I did call Dr. Lane and she told me that she thought that he may have osteitis versus osteomyeliti s and that we should probably get a consult from Dr. Recio. I believe the patient has seen Dr. Recio in the past. We will contact his office. The patient was seen by Dr. Lane who recommended Medihoney and 4 x 4s and then a sacral Mepilex in the next 2 weeks and she would like to see him in two weeks. SUBJECTIVE: The patient states he has no complaints. He has no significant pain lying on it. PHYSICAL EXAMINATION: VITAL SIGNS: Reveal blood pressure this morning was 144/60, pulse 84-105, respirations 18-20, O2 sat 95%, T-max 99.9. GENERAL: This is a well-developed, well-nourished, very pleasant, slightly obese white male in no ap parent distress at this time. HEENT: Reveals normocephalic, nontraumatic cranium. Pupils are equal, round and reactive. Extraocu lar movements intact. Nose and throat are slightly dry. NECK: Supple, without masses, nodes or bruits. CHEST: Clear to auscultation. No rales, rhonchi or wheezes are heard. HEART: Reveals a regular rate and rhythm without murmurs, gallops or rubs. ABDOMEN: Obese, soft, nontender, without organomegaly. Normal bowel sounds are noted. No rebound o r guarding is noted. GENITOURINARY: Reveals Ray catheter still in place. EXTREMITIES: Reveal no clubbing, cyanosis or edema. Sacral wound reveals wound VAC is off. I did d iscuss with Dr. Lane and she wants to place Medihoney with 4 x 4s and sacral Mepilex over that for the next 2 weeks and see him back in 2 weeks. She did recommend that with osteitis versus osteomyel itis, Dr. Recio to see if we need to treat that. I assume that it is most likely well since his sed rate is greater than 120 and his C-reactive protein was 8.8 a week ago. Those are still pending for this morning. LABORATORY DATA: Done this morning revealed white count 9,300 with hemoglobin 11.5, hematocrit 36.8 and platelet count of 213,000. His sed rate was greater than 120 on 24th. I believe another sed rat e was done this morning. Electrolytes reveal sodium 138, potassium 4.0, chloride 101, carbon dioxide 28 with BUN 17, creatinin e 0.86. AST 17 and ALT 7. His C-reactive protein on 24th was 8.08. Prealbumin on 24th was 13. IMPRESSION: 1. Stage 4 sacral decubitus. 2. Possible coccygeal osteomyelitis versus osteitis. 3. Peripheral neuropathy. 4. Systolic dysfunction. 5. Hypertension 6. Aortic stenosis, status post TAVR. 7. Benign prostatic hypertrophy. 8. Cerebrovascular accident in the distant past. 9. Generalized weakness. PLAN: 1. We will start patient without wound VAC and we will start him on Medihoney daily with 4 x 4s and sacral Mepilex. 2. Keep the patient off his sacral area and turn him every 2 hours. 3. Stress ulcer prophylaxis. 4. Decubitus precautions. 5. DVT prophylaxis. 6. Ray catheter. 7. Physical therapy and occupational therapy. 8. Call Dr. Recio's office and have him review his labs and his CT scan and see if he would like to see the patient in his office or if he would prefer that we just start him and then see him in follow up later.
[2017-08-26] MEDS: Ondansetron ODT 4 MG TAB PO SCH (09:00)
[2017-08-26] MEDS: Famotidine 20 MG TAB PO SCH ×2 (09:00→20:49)
[2017-08-26] MEDS: Furosemide 40 MG TAB PO SCH (09:03)
[2017-08-26] MEDS: Gabapentin 300 MG CAP PO SCH ×3 (09:04→20:49)
[2017-08-26] MEDS: Aspirin 81 mg Enteric Coated Tablet PO SCH (09:04)
[2017-08-26] MEDS: Metoprolol Tartrate 25 MG TAB PO SCH ×2 (09:04→20:50)
[2017-08-26] MEDS: traMADol HCl 50 MG TAB PO PRN ×3 (09:04→20:50)
[2017-08-26] MEDS: Potassium Chloride 20 MEQ TAB PO SCH (12:38)
--- NOTE | 2017-08-26 19:56 | PRG ---
DATE OF PROGRESS NOTE: 08/26/2017 DATE OF ADMISSION: 08/04/2017 HISTORY OF PRESENT ILLNESS: Mr. Matos is a pleasant 77-year-old white male with a huge sacral decub itus ulcer. He had debridement by Dr. Farmer at [facility] and was transferred to [facility] where he had physical therapy, occupational therapy, and wound care. Patient is slowly getti ng better. Last Wednesday, his wounds to get turn for the worse and loss of granulation tissue in sever al areas became dark and nonviable. Patient was seen by Dr. Lane yesterday morning who recommende d a consultation by Dr. Recio, but he prefers that we start him on Medihoney, then 4 x 4 gauze and th en a sacral Mepilex. SUBJECTIVE: The patient states he is doing well. He states he has no pain on his buttocks and he ca nnot understand why he has to stand on one side or the other side because he has no pain on his butto cks. PHYSICAL EXAMINATION: GENERAL: Reveals a well-developed, well-nourished, very pleasant white male in no apparent distress at this time. VITAL SIGNS: Blood pressure this morning 108/59, pulse 79 to 80, respirations 18 to 20, O2 saturatio n 98% to 99% on room air. T-max is 98.0. HEENT: Reveals normocephalic, nontraumatic cranium. Pupils are equally round and reactive. Extraoc ular movements intact. Nose and throat are slightly dry. NECK: Supple, without masses, nodes, or bruits. CHEST: Clear to auscultation. No rales, rhonchi, or wheezes are heard. CARDIOVASCULAR: Reveals a regular rate and rhythm without murmurs, gallops, or rubs. ABDOMEN: Soft, nontender, without organomegaly, normal bowel sounds are noted. No rebound or guardi ng is noted. : Deferred. Ray catheter is still in place to keep his wound dry. EXTREMITIES: Reveal no clubbing, cyanosis, or edema. Sacral wound is now covered with Medihoney, 4 x 4s and sacral Mepilex. The patient will see Dr. Lane in 2 more weeks. ASSESSMENT: 1. Stage IV sacral decubitus. 2. Possible coccygeal osteomyelitis versus osteitis. 3. Peripheral neuropathy. 4. Systolic dysfunction. 5. Hypertension. 6. Aortic stenosis, status post TAVR. 7. Benign prostatic hypertrophy. 8. Cerebrovascular accident in the distant past. 9. Generalized weakness. PLAN: 1. We will start the patient with the wound VAC and keep him on Medihoney with 4 x 4s and sacral Mep ilex 2. Keep the patient turned every 2 hours to get him off his sacral area. 3. Stress ulcer prophylaxis. 4. Decubitus precautions. 5. Deep venous thrombosis prophylaxis. 6. Ray catheter. 7. Physical therapy and occupational therapy. 8. The nurse is not reported to me by Dr. Recio's office whether he wants to see him or if he will r ecommend any antibiotics after reviewing the CT scan.
[2017-08-27] MEDS: Furosemide 40 MG TAB PO SCH (09:41)
[2017-08-27] MEDS: Aspirin 81 mg Enteric Coated Tablet PO SCH (09:41)
[2017-08-27] MEDS: Metoprolol Tartrate 25 MG TAB PO SCH ×2 (09:41→20:35)
[2017-08-27] MEDS: Gabapentin 300 MG CAP PO SCH ×3 (09:41→20:35)
[2017-08-27] MEDS: Ondansetron ODT 4 MG TAB PO SCH (09:41)
[2017-08-27] MEDS: Famotidine 20 MG TAB PO SCH ×2 (09:42→20:35)
[2017-08-27] MEDS: Acetaminophen 325 MG TAB PO PRN ×2 (09:50→15:05)
[2017-08-27] MEDS: traMADol HCl 50 MG TAB PO PRN ×3 (09:50→21:53)
[2017-08-27] MEDS: Potassium Chloride 20 MEQ TAB PO SCH (15:05)
--- NOTE | 2017-08-27 23:21 | PRG ---
DATE OF ADMISSION: 08/04/2017 DATE OF SERVICE: 08/27/2017 SUBJECTIVE: Mr. Matos is a very pleasant 77-year-old white male with a tremendous crater over the s acral area from large decubitus ulcer that had to be debrided by Dr. Farmer. Unfortunately, he states that he got this on his way back from [facility] after having a TAVR done. He was being trans ferred home by ambulance and states that something was rubbing against his coccyx on the way, which i s over 1 hour ambulance ride. He got home, did not think anything about it, did not bother him very much, but 2 weeks later showed to my office complaining of sacral pain. At that time, he was found t o have a 4 cm x 6 cm eschar type decubitus. He was referred to Dr. Lane [facility] because [facility] say it would cost him 800 dollars copay. Eventually, he wound up at the emergency room and was admitted to [facility], and Dr. Farmer did debridement. Pos toperatively, he was transferred to [facility] for continued medication with wound [facility]. The patient has actually been doing very well, but over the last week his wound was gotten somewhat d usky and dark and not healing with nice pink granulation tissue. The patient was seen by Dr. Lane, who recommended discontinuing the wound VAC at this time and sta rting him on Medihoney with 4 x 4s and sacral Mepilex for the next 2 weeks and that she would like to see him. The patient and Dr. Lane discussed the importance of getting an opinion from Dr. Recio. I did contact Dr. Recio today. We discussed his CT scan images that he saw on the picture. His sed rate being elevated greater than 120. His CRP being 8 but lack of any significant drainage and any s ignificant pus and no tunneling with his wound. Dr. Recio was having the opinion that he did not nee d any antibiotics at this time, but after reviewing the CT scan, he said give it a week or two and th en repeat a imaging study to be a MRI with contrast and then at that time, we will reassess the whole predicament and see if we can get him moving on to home or exactly where he needs to be. I did discuss all the above with Mr. Matos. Another compounding problem [place] if it gets wet, it is impassable. Home health will not be able to come out and change his Medihoney with 4 x 4s and Mepilex every day and p.r.n. if he stools on top of it. The problem is that his road becomes impass able. The patient states they have about like 6 dump trucks full of gravel and hopefully that will g et placed this weekend or early next week, so that they have access in and out again. The patient also lives by himself and does not really want many people in. He has a [id number] that lives across the way that at times is available and at times not available. She is trainable to possibly change the dressings, but in the past, she has gotten squeamish on giving antibiotics and t hings and actually stopped his antibiotics that Dr. Recio had ordered back in April or May. N onetheless, that is a possibility. The patient presently is lying in bed pretty much 95% of the time. Dr. Lane does not want him up in a wheelchair and him lying on the one side, the other side and not on his back so that we can give this wound some time to heal. OBJECTIVE: VITAL SIGNS: Blood pressure this morning 111/56, pulse 81-88, respirations 18-20, O2 saturation 95%- 98% on room air, T-max 98.2. No labs were done today. GENERAL: This is a well-developed, well-nourished, very pleasant white obese male, in no apparent di stress at this time. HEENT: Reveals normocephalic, nontraumatic cranium. Pupils are equally reactive. Extraocular movem ents intact. Nose and throat are slightly dry. NECK: Supple without masses, nodes or bruits. LUNGS: Chest is clear to auscultation. No rales, rhonchi or wheezes are heard. No cough is noted. HEART: Reveals a regular rate and rhythm without murmurs, gallops or rubs. ABDOMEN: Soft and nontender without organomegaly. Normal bowel sounds are noted. No rebound or gua rding is noted. GENITOURINARY: Deferred. Ray catheter is still in place to help keep his wound dry. EXTREMITIES: Reveal no clubbing, cyanosis or edema. Sacral wound still covered with Medihoney, 4 x 4s and sacral Mepilex. The patient will see Dr. Lee gilbert in about 10 days. Most likely, we will order MRI with contrast before that visit. ASSESSMENT: 1. 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 2. Specialty bed has been ordered and should come in this afternoon to keep the patient off his sacr al area. The patient complains of hip pain on both sides now and radiculopathy pain on his left side and hopefully this especially be able to take pressure off those areas. 3. Peripheral neuropathy. 4. Systolic dysfunction. 5. Hypertension. 6. Aortic stenosis, status post transcatheter aortic valve replacement. 7. Benign prostatic hypertrophy. 8. Cerebrovascular accident in the distant past. 9. Generalized weakness. PLAN: 1. I did discuss this patient's care with Dr. Recio, and we are both of the opinion that this is not an infection at this time. We will continue to treat with wound care as suggested by Dr. Lane [facility] and with daily dressing changes, 4 x 4s and sacral Mepilex. 2. We will schedule an MRI 1-2 days prior to seeing Dr. Lane, who have those test done. 3. Repeat labs next week including his C-reactive protein and sed rate. 4. Try to get the patient some rock on his road, so that when he is able to go home, home health hav e access to him for his care. 5. Continue present physical therapy here. 6. Continue to change the patient's wound care dressing daily and p.r.n. if being soiled. 7. Encouraged the patient to be turned every 2 hours, and continue just down the side not to lay on the wound. 8. Stress ulcer prophylaxis. 9. Decubitus precautions. 10. Deep venous thrombosis prophylaxis. 11. Ray catheter. 12. Physical therapy and occupational therapy.
[2017-08-28] MEDS: Aspirin 81 mg Enteric Coated Tablet PO SCH (08:13)
[2017-08-28] MEDS: Furosemide 40 MG TAB PO SCH (08:13)
[2017-08-28] MEDS: Gabapentin 300 MG CAP PO SCH ×3 (08:14→20:51)
[2017-08-28] MEDS: Ondansetron ODT 4 MG TAB PO SCH (08:14)
[2017-08-28] MEDS: Metoprolol Tartrate 25 MG TAB PO SCH ×2 (08:14→20:51)
[2017-08-28] MEDS: Famotidine 20 MG TAB PO SCH ×2 (08:14→20:50)
[2017-08-28] MEDS: traMADol HCl 50 MG TAB PO PRN ×3 (08:14→20:51)
--- NOTE | 2017-08-28 09:40 | PRG ---
DATE OF SERVICE: 08/28/2017 DATE OF ADMISSION: 08/04/2017 The patient is a very pleasant 77-year-old white male with multiple medical problems. Basically, he has a large sacral decubitus, which occurred on ambulance ride back from his TAVR at [facility] around [place]. The patient had debridement done by Dr. Farmer, and postoperatively, he has done v althea well. He has been here at [facility] basically for wound VAC. The patient was seen by Dr. Lane and placed on Medihoney and 4x4s. The patient has to stay off of his back and is being turned every 2 hours. We are trying to make arrangements for home care, but w e are hitting several obstacles with his insurance with a specialty bed, etc. Dr. Recio and I have d iscussed the case and we both feel that he is not having an infectious processes going on. So, we wi ll continue with Medihoney and see Dr. Lane in about 2 weeks, but also get an MRI with contrast on the sacrum prior to the visit. SUBJECTIVE: The patient states he is doing well today and has no problems. He does like his new [facility] bed, which helps keep pressure off his sacral decubitus. PHYSICAL EXAMINATION: VITAL SIGNS: Reveals vital signs this morning of 128/57, pulse 84, respirations 18, O2 sat 99% on ro om air, T-max 98.1. GENERAL: This is a well-developed, well-nourished, very pleasant white male, in no apparent distress at this time. HEENT: Reveals normocephalic, nontraumatic cranium. Pupils are equally round and reactive. Extraoc ular movements intact. Nose and throat are slightly dry. NECK: Supple, without masses, nodes, or bruits. CHEST: Clear to auscultation. No rales, no rhonchi, no wheezes are heard. CARDIOVASCULAR: Reveals a regular rate and rhythm without murmurs, gallops, or rubs. ABDOMEN: Soft, nontender, without organomegaly, normal bowel sounds are noted. No rebound or guardi ng is noted. EXAM: Deferred. EXTREMITIES: Reveal no clubbing, cyanosis, or edema. Ray catheter is still in place. IMPRESSION: 1. 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 Dr. Lane recommended Medihoney honey with 4x 4s and sacral Mepilex. Dr. Recio and I agree the patient most likely does not have an infection that needs to be treated with IV antibiotics. We will order MRI with contrast within the next 2 weeks. 2. Speciality bed is in place. 3. Peripheral neuropathy. 4. Systolic dysfunction. 5. Hypertension. 6. Aortic stenosis, status post transcatheter aortic valve replacement. 7. Benign prostatic hypertrophy. 8. Cerebrovascular accident in the distant past. 9. Generalized weakness. PLAN: 1. Continue present therapy. 2. Continue to encourage the patient to eat. 3. MRI in about 10 days, prior to seeing Dr. Lane. 4. Repeat labs, C-reactive and sed rate, next week. 5. Continue addressing the patient's insurance and possibly home care if we can get that approved. 6. The patient is basically bedbound 95% of the time and he really needs a specialty bed at home. 7. Continue to make sure the patient is turned every 2 hours. 8. Stress ulcer prophylaxis 9. Decubitus precautions. 10. Deep venous thrombosis prophylaxis. 11. Ray catheter. 12. PT and OT.
[2017-08-28] MEDS: Potassium Chloride 20 MEQ TAB PO SCH (11:45)
[2017-08-29] MEDS: Furosemide 40 MG TAB PO SCH (08:07)
[2017-08-29] MEDS: Metoprolol Tartrate 25 MG TAB PO SCH ×2 (08:08→21:04)
[2017-08-29] MEDS: Aspirin 81 mg Enteric Coated Tablet PO SCH (08:08)
[2017-08-29] MEDS: Gabapentin 300 MG CAP PO SCH ×3 (08:08→21:04)
[2017-08-29] MEDS: Famotidine 20 MG TAB PO SCH ×2 (08:08→21:04)
[2017-08-29] MEDS: traMADol HCl 50 MG TAB PO PRN ×3 (08:09→21:04)
[2017-08-29] MEDS: Ondansetron ODT 4 MG TAB PO SCH (08:09)
--- NOTE | 2017-08-29 09:45 | PRG ---
DATE OF ADMISSION: 08/04/2017 DATE OF SERVICE: 08/29/2017 HISTORY OF PRESENT ILLNESS: Mr. Matos is a very pleasant 77-year-old white male that had TAVR done at [facility] around [place]. Postoperatively, the patient developed a decubitus ulcer from an irritation on the areas right back from his surgery. He eventually was seen in the emergency room and admitted to the hospital and had a debridement done by Dr. Farmer at [place]. A wound VAC was placed and was transferred to [facility] for continued wound care. The patient was actually doing very well and wound got dusky started turning dark. He was seen in co nsultation by Dr. Lane who recommended Medihoney, 4 x 4s and Mepilex sacral coverings. We started that and he has also discussed with Dr. Recio, most likely he did not need IV antibiotics at this ti me according to the CT scan and his pictures. The patient is scheduled to see Dr. Lane in about [address] Recio recommended MRI with contr ast prior to that. SUBJECTIVE: The patient states he has lost his appetite, just not hungry more. He still likes his s pecial bed, states it keeps pressure off his sacral decubitus. He is in the bed pretty much 99% of t he time. PHYSICAL EXAMINATION: VITAL SIGNS: Reveal blood pressure 145/65, pulse 84-88, respirations 22, O2 sat 96% on room air, and T-max 98.3. GENERAL: This is a well-developed, well-nourished, very pleasant white male, in no apparent distress at this time. HEENT: Reveals normocephalic, nontraumatic cranium. Pupils are equally round and reactive. Extraoc ular movements intact. Nose and throat are clear and moist this morning. NECK: Supple, without masses, nodes or bruits. CHEST: Clear to auscultation. No rales, rhonchi or wheezes are heard. CARDIOVASCULAR: Reveals a regular rate and rhythm without murmurs, gallops or rubs. ABDOMEN: Soft, nontender, without organomegaly, normal bowel sounds are noted. No rebound or guardi ng is noted. GENITOURINARY: Deferred. EXTREMITIES: Reveal no clubbing, cyanosis or edema. Ray catheter is still in place Mepilex sacral still in place with Medihoney, which is changed daily. IMPRESSION: 1. 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 I appreciate Dr. Lane's recommendations of Harsh cruz and Dr. Recio' recommendation with no antibiotics, but a repeat MRI with contrast in the nex t 7-[address] days. Specialty bed in place. 2. Peripheral neuropathy. 3. Systolic dysfunction. 4. Hypertension 5. Aortic stenosis, status post transcatheter aortic valve replacement. 6. Benign prostatic hypertrophy. 7. Cerebrovascular accident in the distant past. 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 9. Generalized weakness. PLAN: 1. Continue present wound care. 2. Zofran p.r.n. nausea and vomiting. 3. Encourage the patient to eat. 4. Stress ulcer prophylaxis. 5. Decubitus precautions. 6. Deep venous thrombosis prophylaxis. 7. Ray catheter to be continued. 8. Wound care. 9. Lab tomorrow.
[2017-08-29] MEDS: Potassium Chloride 20 MEQ TAB PO SCH (12:03)
[2017-08-30 05:29] LABS: #Basophils 0.1 thou/uL (0.0-0.2); #Eosinphils 0.4 thou/uL (0.0-0.7); #Lymphocytes 1.4 thou/uL (1.20-3.40); #Neutrophils 6.8 thou/uL (1.40-6.50); %Basophils 1.1 % (0.0-1.0); %Eosinophils 3.6 % (0.0-10.0); %Lymphocytes 14.9 % (21.0-51.0); %Monocytes 10.2 % (0.0-10.0); %Neutrophils 70.3 % (42.0-75.0); Mean Corpuscular HGB CONC 31.4 g/dL (32.0-36.0); Mean Corpuscular Volume 85.9 fl (80.0-94.0); Mean Platelet Volume 8.7 fL (7.4-10.4); Platelet Count 230 thou/uL (130-400); RBC Distribution Width 13.8 % (11.5-14.5); Red Blood Cell (RBC) Count 4.07 mill/uL (4.70-6.10); White Blood Cell (WBC) Count 9.7 thou/uL (4.8-10.8)
[2017-08-30 05:48] LABS: ALT (SGPT) Less than 6 U/L (8-55); AST (SGOT) 13 U/L (5-34); Albumin 3.2 g/dL (3.4-4.8); Alkaline Phosphatase 60 U/L (40-150); Anion Gap 13 mmol/L (10-20); BUN (Urea Nitrogen) 23 mg/dL (8.4-25.7); Bilirubin, Total 0.5 mg/dL (0.2-1.2); Calc. Creatinine Clearance 106 mL/min (70-130); Calcium 9.4 mg/dL (7.8-10.44); Carbon Dioxide 26 mmol/L (23-31); Chloride 101 mmol/L (98-107); Estimated GFR-MDRD Greater than 90; Globulin 3.5 g/dL (2.4-3.5); Glucose 98 mg/dL (83-110); Potassium 3.8 mmol/L (3.5-5.1); Protein, Total 6.7 g/dL (5.8-8.1); Sodium 136 mmol/L (136-145)
[2017-08-30] MEDS: Metoprolol Tartrate 25 MG TAB PO SCH ×2 (08:12→20:26)
[2017-08-30] MEDS: Furosemide 40 MG TAB PO SCH (08:12)
[2017-08-30] MEDS: Aspirin 81 mg Enteric Coated Tablet PO SCH (08:12)
[2017-08-30] MEDS: Gabapentin 300 MG CAP PO SCH ×3 (08:13→20:26)
[2017-08-30] MEDS: traMADol HCl 50 MG TAB PO PRN ×3 (08:13→20:26)
[2017-08-30] MEDS: Famotidine 20 MG TAB PO SCH ×2 (08:15→20:26)
[2017-08-30] MEDS: Ondansetron ODT 4 MG TAB PO SCH (08:15)
[2017-08-30] MEDS: Potassium Chloride 20 MEQ TAB PO SCH (12:47)
[2017-08-30 13:40] LABS: CRP (Inflammatory) 7.14 mg/dL (= or < 0.5)
--- NOTE | 2017-08-30 21:15 | PRG ---
DATE OF SERVICE: 08/30/2017 HISTORY OF PRESENT ILLNESS: Mr. Matos is a very pleasant 77-year-old slightly obese white male that had a TAVR done at [facility] around [place]. Postoperatively, he was sent home. Unfortuna velma, the ambulance rode in and somehow rubbed his coccyx area developed an irritation that developed into a sacral decubitus. He was seen in the emergency room at [facility], admitted and [place] rided by Dr. Farmer. A wound VAC was placed and the patient was transferred here at [facility] for continued wound care. The patient actually has done very well, but the wound stopped healing. He was seen in consultation by Dr. Lane and is also discussed the case with Dr. Recio. His wound care was changed. He was pl aced on Medihoney with 4x4's and sacral Mepilex. The patient also had not been started on IV antibio tics and after significant discussion, it was elected not to do that. SUBJECTIVE: The patient states he feels a little bit better. His appetite is fair. He has no compl aints today. OBJECTIVE: VITAL SIGNS: Blood pressure this morning was 95/50, pulse 78-80, respirations 18, O2 sat 95-96%, T-m ax 97.7. GENERAL: This is a well-developed, well-nourished, very pleasant white male in no apparent distress at this time. HEENT: Reveals normocephalic, nontraumatic cranium. Pupils are equal, round, and reactive. Extraoc ular movements are intact. Nose and throat are slightly dry. NECK: Supple, without masses, nodes or bruits. LUNGS: Chest is clear to auscultation. No cough is noted. No rales, no rhonchi are noted. No whee zes are heard. CARDIOVASCULAR: Reveals a regular rate and rhythm without murmurs, gallops or rubs. ABDOMEN: Obese, soft and nontender. No organomegaly is noted. Normal bowel sounds are noted all 4 quadrants. No rebound or guarding is noted. GENITOURINARY: Deferred. EXTREMITIES: Reveal no clubbing, cyanosis or edema. Ray catheter is still in place. Mepilex sacral healing is in place with Medihoney, which is changed every day. IMPRESSION: 1. 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 I appreciate Dr. Lane's and Dr. Recio' jillian mmendations. MRI in the next week. 2. Specialty bed in place. 3. Peripheral neuropathy. 4. Systolic dysfunction. 5. Hypertension. 6. Aortic stenosis, status post TAVR. 7. Benign prostatic hypertrophy. 8. Cerebrovascular accident in the distant past. 9. Demyelinating axonal neuropathy which has progressed with significant weakness. 10. Generalized weakness. PLAN: 1. Continue present wound care. 2. Zofran p.r.n. nausea and vomiting. 3. Encourage the patient to eat. 4. Stress ulcer prophylaxis. 5. Decubitus precautions. 6. Deep venous thrombosis prophylaxis. 7. Ray catheterization to be continued. 8. Wound care. 9. Lab p.r.n.
[2017-08-30] MEDS: Acetaminophen 325 MG TAB PO PRN (23:22)
[2017-08-31] MEDS: traMADol HCl 50 MG TAB PO PRN ×3 (06:20→20:12)
[2017-08-31] MEDS: Furosemide 40 MG TAB PO SCH (08:26)
[2017-08-31] MEDS: Metoprolol Tartrate 25 MG TAB PO SCH ×2 (08:26→20:12)
[2017-08-31] MEDS: Gabapentin 300 MG CAP PO SCH ×3 (08:26→20:12)
[2017-08-31] MEDS: Famotidine 20 MG TAB PO SCH ×2 (08:26→20:12)
[2017-08-31] MEDS: Aspirin 81 mg Enteric Coated Tablet PO SCH (08:26)
[2017-08-31] MEDS: Ondansetron ODT 4 MG TAB PO SCH (08:26)
[2017-08-31] MEDS: Potassium Chloride 20 MEQ TAB PO SCH (12:26)
--- NOTE | 2017-08-31 20:23 | PRG ---
DATE OF SERVICE: 08/31/2017 HISTORY OF PRESENT ILLNESS: Mr. Matos is a very pleasant 77-year-old white male who had a TAVR done at [facility] around 2016. Postoperatively, he was sent home via ambulance. Unfort unately, something in the ambulance rubbed his coccyx and developed an ulcer. It turned to significa nt sacral decubitus ulcer. He eventually presented to [facility], was admitted and debrided by Dr. Farmer. A wound VAC was placed and the patient was transferred to [facility] for continued wound care. The patient seems to be doing very well, but then his wound stopped healing and he was sent to Dr. Sr desir for continued consultation. She recommended Medihoney with 4x4s and sacral Mepilex. Dr. Recio recommended no antibiotics at this time, but a repeat CT scan next week. SUBJECTIVE: The patient states he feels much better. He has no significant pain. He wants to know when he can go home. PHYSICAL EXAMINATION: VITAL SIGNS: Blood pressure this morning was 144/95, pulse 82-87, respirations 18-20, O2 sat 97% on room air. T-max is 98.0. GENERAL: This is a well-developed and well-nourished obese white male, in no apparent distress at th is time. HEENT: Reveals normocephalic and nontraumatic cranium. Pupils are equally round and reactive. Extr aocular movements are intact. Nose and throat are slightly dry. NECK: Supple without masses, nodes, or bruits. CHEST: Clear to auscultation. No rales, rhonchi, or wheezes are heard. No cough is heard. CARDIOVASCULAR: Heart reveals a regular rate and rhythm without murmurs, gallops, or rubs. ABDOMEN: Obese, soft, and nontender without organomegaly. Normal bowel sounds are noted. No reboun d or guarding is noted. : Deferred. Ray catheter is still in place. EXTREMITIES: Reveal no clubbing, cyanosis, or edema. The patient's wound is still covered with Mepi roya sacral. IMPRESSION: 1. 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 The patient was evaluated again at this point by Wound Care. He is beginning to heal much better now according to Dr. Lane's protocol. 2. Peripheral neuropathy. 3. Systolic dysfunction. 4. Hypertension. 5. Aortic stenosis status post TAVR. 6. Benign prostatic hypertrophy. 7. Cerebrovascular accident in the distant past. 8. 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 9. Generalized weakness. PLAN: 1. Continue specialty bed. 2. Continue present wound care with Medihoney and 4x4s change daily with a sacral Mepilex. 3. Encourage the patient to continue to eat well. 4. Stress ulcer prophylaxis. 5. Decubitus precautions. 6. Deep venous thrombosis prophylaxis. 7. Ray catheterization to be continued. 8. Wound care. 9. Lab p.r.n.
[2017-09-01] MEDS: Ondansetron ODT 4 MG TAB PO SCH ×2 (08:23→10:47)
[2017-09-01] MEDS: Famotidine 20 MG TAB PO SCH ×2 (08:24→20:03)
[2017-09-01] MEDS: Aspirin 81 mg Enteric Coated Tablet PO SCH ×2 (08:24→08:25)
[2017-09-01] MEDS: Metoprolol Tartrate 25 MG TAB PO SCH ×3 (08:24→20:04)
[2017-09-01] MEDS: Furosemide 40 MG TAB PO SCH ×2 (08:25→10:47)
[2017-09-01] MEDS: Gabapentin 300 MG CAP PO SCH ×3 (08:27→20:03)
[2017-09-01] MEDS: traMADol HCl 50 MG TAB PO PRN ×2 (08:33→20:04)
[2017-09-01] MEDS: Potassium Chloride 20 MEQ TAB PO SCH (11:54)
--- NOTE | 2017-09-01 20:48 | PRG ---
DATE OF SERVICE: 09/01/2017 HISTORY OF PRESENT ILLNESS: Mr. Matos is a well-developed, well-nourished 77-year-old white male th at was at [facility] around 2016, he had a TAVR done. Postoperatively, he was sent h ome via ambulance for about an hour and a half ride. Unfortunately, something on the ambulance rubbe d an area on his coccyx and developed decubitus ulcer. He developed some significant sacral decubitu s ulcerations when over 2 weeks showed up in my office. He was referred to Dr. Lane in wound care but actually ended up going to the emergency room at [facility] where he was admitted and h ad a debridement done by Dr. Farmer. Postoperatively, he had a wound VAC placed and transferred to [facility] for continued wound care. The patient's ulcer stopped healing and therefore he was sent to see Dr. Lane for her opinion. She changed his wound care protocol and now he is d oing better. Also, his case was discussed with Dr. Recio and felt that he did not need antibiotics a t this time. SUBJECTIVE: The patient states he had a good day today, he is still wanting to go home, but he under stands that he is supposed to continue his present wound care and see Dr. Lane next Wednesday. PHYSICAL EXAMINATION: VITAL SIGNS: Blood pressure this morning was 143/73, pulse 78-84, respirations 20, O2 saturation 94% on room air, T-max 98.0. GENERAL: This reveals a well-developed, well-nourished, very pleasant, slightly obese white male in no apparent distress at this time. HEENT: Reveals normocephalic, nontraumatic cranium. Pupils are equally round and reactive. Extraoc ular movements intact. Nose and throat are slightly dry. NECK: Supple, without masses, nodes or bruits. LUNGS: Chest is clear to auscultation. No rales, rhonchi or wheezes are heard. CARDIOVASCULAR: Reveals a regular rate and rhythm without murmurs, gallops or rubs. ABDOMEN: Soft, nontender, without organomegaly, normal bowel sounds are noted. No rebound or guardi ng is noted. GENITOURINARY: Deferred. EXTREMITIES: Reveal no clubbing, cyanosis or edema. IMPRESSION: 1. 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 2. Peripheral neuropathy. 3. Systolic dysfunction. 4. Hypertension. 5. Aortic stenosis, status post TAVR. 6. Benign prostatic hypertrophy. 7. Cerebrovascular accident in the distant past. 8. 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 9. Generalized weakness. PLAN: 1. Continue present wound care with Medihoney and 4x4s change daily with a sacral Mepilex. 2. Encourage the patient to eat. 3. Stress ulcer prophylaxis. 4. Decubitus precautions. 5. DVT prophylaxis. 6. Ray catheterization. 7. Wound care. 8. Lab p.r.n. 9. Continue specialty bed. 10. The patient spends 99.9% of the time in bed.
[2017-09-02] MEDS: traMADol HCl 50 MG TAB PO PRN ×3 (06:06→21:12)
[2017-09-02] MEDS: Gabapentin 300 MG CAP PO SCH ×3 (10:01→21:12)
[2017-09-02] MEDS: Metoprolol Tartrate 25 MG TAB PO SCH ×2 (10:02→21:12)
[2017-09-02] MEDS: Furosemide 40 MG TAB PO SCH (10:02)
[2017-09-02] MEDS: Aspirin 81 mg Enteric Coated Tablet PO SCH (10:02)
[2017-09-02] MEDS: Famotidine 20 MG TAB PO SCH ×2 (10:02→21:12)
[2017-09-02] MEDS: Ondansetron ODT 4 MG TAB PO SCH (11:02)
[2017-09-02] MEDS: Potassium Chloride 20 MEQ TAB PO SCH (13:48)
[2017-09-02] MEDS: Acetaminophen 325 MG TAB PO PRN (13:49)
--- NOTE | 2017-09-02 17:30 | PRG ---
DATE OF SERVICE: 09/02/2017 SUBJECTIVE: Mr. Matos is a very pleasant 77-year-old white male, who went to [facility] and h ad TAVR done about 2016. Postoperatively, he was sent home via ambulance and had about 1-1 /2 ambulance ride. Unfortunately something rubs his coccyx area from ambulance ride and he developed an ulcer. Developed a significant sacral decubitus ulcer ended up in the emergency room. He was ad mitted to the hospital by Dr. Farmer, who did a large debridement and then he was sent with a wound [facility] to [facility] for continued wound care. The patient was healing well, but his woun d stopped healing. He was sent to Dr. Lane for her opinion. She changed the wound protocol and i t was discussed with Dr. Recio, who felt he did not need antibiotics. He continues to do well. He wants to go home and get a home health agency to change his wound. Unfo rtunately, he will have to be changed every day even Wednesday and Sundays and we are working on that at this time. SUBJECTIVE: The patient states he is doing well, he has no complaints, and he is supposed to see Dr. Lane next Wednesday. We will get a CT scan of sacral area before we go. OBJECTIVE: VITAL SIGNS: Review of blood pressure this morning slightly low 99/61, pulse 80, respirations 20, O2 saturation 97% on room air, T-max 97.4. GENERAL: This is a well-developed, well-nourished, slightly obese white male, in no apparent distres s at this time. HEENT: Reveals normocephalic, nontraumatic cranium. Pupils are equally round and reactive. Extraoc ular movements intact. Nose and throat are slightly dry. NECK: Supple without mass, nodes, or bruits. CHEST: Clear to auscultation. No rales, rhonchi, or wheezes are heard. CARDIOVASCULAR: Reveals a regular rate and rhythm without murmurs, gallops or rubs. ABDOMEN: Soft and nontender without organomegaly, normal bowel sounds are noted. No rebound or guar ding is noted. : Deferred. EXTREMITIES: Reveal no clubbing, cyanosis or edema. The sacral area still was presently has a Medih oney with 4 x 4s and sacrum Mepilex and continues to heal. IMPRESSION: 1. Stage IV sacral ulcer, slow but continued healing. 2. Peripheral neuropathy. 3. Systolic dysfunction. 4. Hypertension. 5. Aortic stenosis, status post transcatheter aortic valve replacement. 6. Benign prostate hypertrophy. 7. Distant cerebrovascular accident. 8. Demyelinating axonal neuropathy, which is progressive. 9. Generalized weakness. PLAN: 1. Continue present sacral decubitus care with Medihoney and 4 x 4s, change daily with sacral Mepile x. 2. Stress ulcer prophylaxis. 3. Decubitus precautions. 4. DVT prophylaxis. 5. Ray catheterization continues. 6. Wound care. 7. Labs p.r.n. 8. Continue specialty bed. 9. Encourage the patient to eat appropriately. 10. The patient unfortunately spends 99.9% of the time in bed. He needs to be turned every 2 hours.
[2017-09-03] MEDS: Gabapentin 300 MG CAP PO SCH ×3 (09:46→21:02)
[2017-09-03] MEDS: Aspirin 81 mg Enteric Coated Tablet PO SCH (09:47)
[2017-09-03] MEDS: Metoprolol Tartrate 25 MG TAB PO SCH ×2 (09:47→21:08)
[2017-09-03] MEDS: Famotidine 20 MG TAB PO SCH ×2 (09:47→21:02)
[2017-09-03] MEDS: Furosemide 40 MG TAB PO SCH (09:47)
[2017-09-03] MEDS: traMADol HCl 50 MG TAB PO PRN ×2 (09:47→21:02)
[2017-09-03] MEDS: Ondansetron ODT 4 MG TAB PO SCH (09:48)
[2017-09-03] MEDS ORDERED: Acetaminophen 500 MG TAB PO SCH (12:15)
[2017-09-03] MEDS ORDERED: traMADol HCl 50 MG TAB PO SCH (12:15)
[2017-09-03] MEDS: Potassium Chloride 20 MEQ TAB PO SCH (12:30)
--- NOTE | 2017-09-03 17:03 | PRG ---
DATE OF SERVICE: 09/03/2017. Mr. Matos is a well-developed, well-nourished, 77-year-old white male who unfortunately had a TAVR d one at [facility] in [place]. On his way home, he had an ambulance ride for one and half hours . Unfortunately, something rubbed against his coccyx and he developed ulcer. He did not get seen to for 2 weeks. When he came to my office, he was referred for wound care. The patient actually went to the ER and was admitted to the hospital and had a debridement done by Dr. Farmer. The patient was transferred to [facility] with wound VAC. The patient actually did very well for about a week and a half and his wound turned very morel. We sent him to see Dr. Lane for consultation. She ch anged his wound dressing off the wound VAC into Medihoney along with 4 x 4 in sacrum with Mepilex. T he patient has actually done very well and much better. He has an appointment with Dr. Lane next Wednesday, and most likely will do a CT scan Wednesday or Wednesday. SUBJECTIVE: The patient states he is doing well, but he has some pain in his leg today. He most lik stacey after discharge will need to go and see a neurologist or neurosurgeon for his pain. OBJECTIVE: VITAL SIGNS: Blood pressure this morning was 149/65, pulse 79-80, respirations 18-20, O2 sat 96%- 97 % on room air, T-max is 97.9. GENERAL: This is a well-developed, well-nourished, very pleasant white male in no apparent distress at this time. HEENT: Normocephalic, nontraumatic cranium. Pupils equal, round, and reactive. Extraocular movemen ts intact. Nose and throat are slightly dry. NECK: Supple without masses, nodes, or bruits. CHEST: Clear to auscultation. No rales, rhonchi, or wheezes are heard. HEART: Regular rate and rhythm without murmurs, gallops or rubs. ABDOMEN: Obese, soft, and nontender without organomegaly. Normal bowel sounds are noted in all 4 qu adrants. No rebound or guarding is noted. : Deferred. EXTREMITIES: No clubbing, cyanosis, or edema. Sacral area still presently has Medihoney with 4 x 4' s and sacral Mepilex. IMPRESSION: 1. Stage IV sacral ulcer, slowly but continuing to heal. 2. Peripheral neuropathy. 3. Systolic dysfunction. 4. Hypertension. 5. Aortic stenosis, status post transcatheter aortic valve replacement. 6. Benign prostatic hypertrophy. 7. Distant cerebrovascular accident. 8. Demyelinating axonal neuropathy, which is progressive. 9. Generalized weakness. PLAN: 1. Continue sacral decubitus care. 2. Stress ulcer prophylaxis. 3. Decubitus precautions. 4. DVT prophylaxis. 5. Ray catheterization. 6. Wound care. 7. Labs p.r.n. 8. Continue specialty bed. 9. Encourage the patient to eat well. 10. The patient needs to be turned every 2 hours, and he needs to stay in bed pretty much 99.9% of t he time.
[2017-09-04] MEDS: Furosemide 40 MG TAB PO SCH (09:28)
[2017-09-04] MEDS: Gabapentin 300 MG CAP PO SCH ×3 (09:28→20:34)
[2017-09-04] MEDS: Metoprolol Tartrate 25 MG TAB PO SCH ×2 (09:28→20:34)
[2017-09-04] MEDS: Aspirin 81 mg Enteric Coated Tablet PO SCH (09:28)
[2017-09-04] MEDS: Acetaminophen 325 MG TAB PO PRN ×2 (09:28→16:34)
[2017-09-04] MEDS: Famotidine 20 MG TAB PO SCH ×2 (09:28→20:34)
[2017-09-04] MEDS: Ondansetron ODT 4 MG TAB PO SCH (09:28)
[2017-09-04] MEDS: Potassium Chloride 20 MEQ TAB PO SCH (12:13)
--- NOTE | 2017-09-04 15:35 | PRG ---
DATE OF SERVICE: 09/04/2017 SUBJECTIVE: Mr. Matos is doing well. Denies any complaints, resting comfortably, tolerating his me dications. OBJECTIVE: VITAL SIGNS: He is afebrile, heart rate 84, respirations 20, oxygen saturation 96% on room air, bloo d pressure is 119/58. CARDIOVASCULAR: S1, S2 plus. RESPIRATORY: Normal vesicular breath sounds. ABDOMEN: Soft, nontender, bowel sounds heard in all quadrants. EXTREMITIES: Without cyanosis or clubbing. Peripheral pulses are palpable. CENTRAL NERVOUS SYSTEM: Generalized weakness. IMPRESSION: 1. Stage IV sacral decubitus with wound VAC in place. 2. Peripheral neuropathy. 3. Chronic diastolic congestive heart failure. 4. Hypertension. 5. Benign prostatic hypertrophy. PLAN: 1. Continue current medications. 2. Nutritional support. 3. DVT and stress ulcer prophylaxis. 4. Decubitus precautions. 5. Wound VAC care. 6. Pain medications.
[2017-09-04] MEDS: traMADol HCl 50 MG TAB PO PRN (16:34)
[2017-09-05] MEDS: Gabapentin 300 MG CAP PO SCH ×3 (08:40→20:52)
[2017-09-05] MEDS: Famotidine 20 MG TAB PO SCH ×2 (08:40→20:52)
[2017-09-05] MEDS: Aspirin 81 mg Enteric Coated Tablet PO SCH (08:41)
[2017-09-05] MEDS: Acetaminophen 325 MG TAB PO PRN ×2 (08:41→15:08)
[2017-09-05] MEDS: Furosemide 40 MG TAB PO SCH (08:41)
[2017-09-05] MEDS: Metoprolol Tartrate 25 MG TAB PO SCH ×2 (08:41→20:52)
[2017-09-05] MEDS: Ondansetron ODT 4 MG TAB PO SCH (08:42)
[2017-09-05] MEDS: traMADol HCl 50 MG TAB PO PRN ×3 (08:42→20:51)
[2017-09-05] MEDS: Potassium Chloride 20 MEQ TAB PO SCH (12:36)
--- NOTE | 2017-09-05 12:46 | PRG ---
DATE OF SERVICE: 09/05/2017 SUBJECTIVE: Mr. Matos is doing well. Denies any complaints except for some right shoulder pain whe n he slipped on his right side last night. Denies any fever or chills. Denies any chest pain or quentin rtness of breath. He is tolerating his wound VAC. Discussed with nursing and no concerns. OBJECTIVE: VITAL SIGNS: He is afebrile, heart rate 79, respiration is 18, oxygen saturation 98% on room air, bl ood pressure 89/55. CARDIOVASCULAR: S1, S2 plus. RESPIRATORY: Normal vesicular breath sounds. ABDOMEN: Soft, nontender, bowel sounds heard in all quadrants. EXTREMITIES: Without cyanosis or clubbing. Peripheral pulses are palpable. BACK: Shows a wound VAC in place. CENTRAL NERVOUS SYSTEM: Generalized weakness. IMPRESSION: 1. Stage IV sacral decubitus with wound VAC placement. 2. Peripheral neuropathy. 3. Chronic diastolic congestive heart failure, well compensated. 4. Hypertension, well controlled. 5. Benign prostatic hypertrophy and improving deconditioning. PLAN: 1. Continue wound VAC. 2. Recheck CBC, CRP, and sed rate tomorrow. 3. Continue current medications. 4. DVT and stress ulcer prophylaxis. 5. Decubitus precautions. 6. Routine laboratory values. 7. No family at bedside. 8. I discussed with the patient in detail and all questions answered.
[2017-09-06] MEDS: traMADol HCl 50 MG TAB PO PRN ×2 (05:11→14:23)
[2017-09-06 05:53] LABS: #Basophils 0.1 thou/uL (0.0-0.2); #Eosinphils 0.3 thou/uL (0.0-0.7); #Lymphocytes 1.2 thou/uL (1.20-3.40); #Monocytes 0.9 thou/uL (0.11-0.59); #Neutrophils 8.2 thou/uL (1.40-6.50); %Basophils 0.8 % (0.0-1.0); %Eosinophils 2.7 % (0.0-10.0); %Lymphocytes 11.2 % (21.0-51.0); %Monocytes 8.2 % (0.0-10.0); %Neutrophils 77.1 % (42.0-75.0); Hemoglobin 11.9 g/dL (14.0-18.0); Mean Corpuscular HGB CONC 31.2 g/dL (32.0-36.0); Mean Corpuscular Hemoglobin 27.3 pg (27.0-31.0); Mean Corpuscular Volume 87.5 fl (80.0-94.0); Mean Platelet Volume 8.4 fL (7.4-10.4); Platelet Count 206 thou/uL (130-400); RBC Distribution Width 14.3 % (11.5-14.5); Red Blood Cell (RBC) Count 4.35 mill/uL (4.70-6.10); White Blood Cell (WBC) Count 10.6 thou/uL (4.8-10.8)
[2017-09-06 05:54] LABS: Anion Gap 14 mmol/L (10-20); BUN (Urea Nitrogen) 23 mg/dL (8.4-25.7); Calc. Creatinine Clearance 96 mL/min (70-130); Calcium 9.5 mg/dL (7.8-10.44); Carbon Dioxide 29 mmol/L (23-31); Chloride 101 mmol/L (98-107); Estimated GFR-MDRD 82; Glucose 92 mg/dL (83-110); Potassium 4.6 mmol/L (3.5-5.1); Sodium 139 mmol/L (136-145)
[2017-09-06] MEDS ORDERED: Furosemide 40 MG TAB ONE (08:07)
[2017-09-06] MEDS: Metoprolol Tartrate 25 MG TAB PO SCH ×2 (08:15→20:13)
[2017-09-06] MEDS: Famotidine 20 MG TAB PO SCH ×2 (08:15→20:13)
[2017-09-06] MEDS: Aspirin 81 mg Enteric Coated Tablet PO SCH (08:15)
[2017-09-06] MEDS: Furosemide 40 MG TAB PO SCH (08:15)
[2017-09-06] MEDS: Gabapentin 300 MG CAP PO SCH ×3 (08:15→20:13)
[2017-09-06] MEDS: Ondansetron ODT 4 MG TAB PO SCH (08:16)
[2017-09-06] MEDS: Potassium Chloride 20 MEQ TAB PO SCH (11:51)
[2017-09-06 12:16] LABS: CRP (Inflammatory) 2.54 mg/dL (= or < 0.5)
--- NOTE | 2017-09-06 20:38 | PRG ---
DATE OF SERVICE: 09/06/2017 HISTORY OF PRESENT ILLNESS: Mr. Matos is a pleasant morbidly obese 77-year-old white male that had a TAVR done at [facility]. He stated that on his way home, something rubbed on his coccyx, but unfortunately he did not come by my office for at least 2 weeks after that. When he came to my offi ce, he had an unstageable ulcer approximately 2 x 5 cm. We have arranged for him to see Dr. Lane, but he refused outpatient wound care therapy through [facility]. The patient actually went t o the ER and was admitted to [facility] and had a debridement done by Dr. Farmer. Postoperat ively, the patient was transferred to [facility] for wound VAC care. The patient was doing well for about 2 weeks. His wound turned morel. He saw Dr. Lane for consultation and she changed the wound dressings to Medihoney with [id number] a sacral Mepilex. The patient has done very well and Piero Han and I discussed his CT scan. At that time, it was felt that he did not need any antibiotics . He did request MRI, but he cannot have an MRI because he has had a pacemaker that is not able to h ave resistance MRIs. SUBJECTIVE: The patient has no complaints. He wants to know when he can go home and have his daught er-in-law care for him. OBJECTIVE: VITAL SIGNS: Reveal blood pressure 109/58, pulse 81-92, respirations 18-20, O2 sat 93-95% on room ai r, T-max 98.9. GENERAL: This is a well-developed, well-nourished, pleasant, obese white male in no apparent distres s at this time. HEENT: Reveals normocephalic, nontraumatic cranium. Pupils are equally round and reactive. Extraoc ular movements are intact. Nose and throat are slightly dry. NECK: Supple, without masses, nodes or bruits. LUNGS: Chest is clear to auscultation. No rales, rhonchi or wheezes are heard. CARDIOVASCULAR: Reveals a regular rate and rhythm without murmurs, gallops or rubs. ABDOMEN: Obese, soft, nontender, without organomegaly. Normal bowel sounds are noted in all 4 quadr ants. No rebound or guarding is noted. GENITOURINARY: Deferred. EXTREMITIES: Reveal sacral area with Medihoney, 4x4s, and sacral Mepilex. LABORATORIES: Today reveal white count 10,600 with hemoglobin 11.9, hematocrit 38.1 and a platelet c ount 206,000. His sed rate is 68, which is down from his 120 of 2 weeks ago and 99 last week. Chemistries reveal sodium 139, potassium 4.6, chloride 101, carbon dioxide 29 with a BUN 23, creatini ne 0.89. GFR is 82. The patient's sugar was 92. His C-reactive protein is down from 8.8 down to 7. 14 down to 2.54. IMPRESSION: 1. Stage IV sacral ulcer, slowly healing. 2. Peripheral vascular disease. 3. Systolic dysfunction. 4. Aortic stenosis, status post transcatheter aortic valve replacement. 5. Hypertension. 6. Benign prostatic hypertrophy. 7. Distant cerebrovascular accident. 8. 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 9. Generalized weakness. PLAN: 1. Continue sacral decubitus care. 2. Stress ulcer prophylaxis. 3. Decubitus precautions. 4. Possible CT scan after Dr. Recio' reviews of last CT scan. 5. Deep venous thrombosis prophylaxis. 6. Ray catheter. 7. Wound care. 8. Labs p.r.n. 9. Specialty bed. 10. Encourage the patient well. 11. Patient needs to turn every 2 hours.
[2017-09-07] MEDS: Metoprolol Tartrate 25 MG TAB PO SCH ×2 (08:03→20:14)
[2017-09-07] MEDS: Ondansetron ODT 4 MG TAB PO SCH (08:03)
[2017-09-07] MEDS: Furosemide 40 MG TAB PO SCH (08:03)
[2017-09-07] MEDS: Aspirin 81 mg Enteric Coated Tablet PO SCH (08:03)
[2017-09-07] MEDS: Gabapentin 300 MG CAP PO SCH ×3 (08:03→20:14)
[2017-09-07] MEDS: Famotidine 20 MG TAB PO SCH ×2 (08:03→20:14)
[2017-09-07] MEDS: Potassium Chloride 20 MEQ TAB PO SCH (11:57)
[2017-09-07] MEDS: traMADol HCl 50 MG TAB PO PRN (20:13)
[2017-09-08] MEDS: Aspirin 81 mg Enteric Coated Tablet PO SCH (08:10)
[2017-09-08] MEDS: traMADol HCl 50 MG TAB PO PRN ×3 (08:11→20:59)
[2017-09-08] MEDS: Famotidine 20 MG TAB PO SCH ×2 (08:11→20:59)
[2017-09-08] MEDS: Gabapentin 300 MG CAP PO SCH ×3 (08:11→20:59)
[2017-09-08] MEDS: Metoprolol Tartrate 25 MG TAB PO SCH ×2 (08:11→20:59)
[2017-09-08] MEDS: Furosemide 40 MG TAB PO SCH (08:11)
[2017-09-08] MEDS: Acetaminophen 325 MG TAB PO PRN ×2 (08:11→15:32)
[2017-09-08] MEDS: Ondansetron ODT 4 MG TAB PO SCH (08:11)
[2017-09-08] MEDS: Potassium Chloride 20 MEQ TAB PO SCH (12:32)
--- NOTE | 2017-09-08 19:31 | PRG ---
DATE OF SERVICE: 09/07/2017 HISTORY OF PRESENT ILLNESS: Mr. Matos is a very pleasant, well-developed, well-nourished 77-year-ol d white male that had a TAVR done at [facility] in [place]. He feels that on his way home whic h is about an hour and half; in the ambulance, his coccyx rubbed up against something. He came to my office 2 weeks later with an unstageable ulcer approximately 2 x 5 cm. We arranged for him to see Piero Lane, but he refused outpatient wound care through [facility] and therefore he went to [facility] where he was admitted. Dr. Farmer did a debridement and postoperatively he was transferred to [facility] for wound VAC care. His wound did very well for about 2 weeks and then sta rted regressing. He was seen by Dr. Lane and his dressings were changed to Medihoney with 4x4s an d sacral Mepilex. The patient did not need antibiotics anymore and the patient was continued to be t reated. Patient is supposed to see Dr. Lane on 09/08/2017 for 2 week followup. SUBJECTIVE: The patient states he is doing well, but he would like to go home soon. OBJECTIVE: VITAL SIGNS: Reveal blood pressure 146/66, pulse 82-92, respirations 18, O2 sat 95-98% on room air, T-max 98.9. GENERAL: This is a well-developed, well-nourished, very pleasant white male in no apparent distress at this time. HEENT: Reveals normocephalic, nontraumatic cranium. Pupils equal, round, and reactive. Extraocular movements are intact. Nose and throat are slightly dry. NECK: Supple, without masses, nodes or bruits. CHEST: Clear to auscultation. No rales, rhonchi or wheezes are heard. CARDIOVASCULAR: Reveals a regular rate and rhythm without murmurs, gallops or rubs. ABDOMEN: Obese, soft, nontender, without organomegaly. Normal bowel sounds are noted in all 4 quadr ants. No rebound or guarding is noted. : Deferred. EXTREMITIES: Reveal sacral area with Mepilex sacral bandage over it. Underneath, it should be Medih oney with 4x4s and is changed daily. IMPRESSION: 1. Stage IV sacral ulcer, slow healing. 2. Peripheral vascular disease. 3. Systolic dysfunction. 4. Aortic stenosis, status post TAVR. 5. Hypertension. 6. Benign prostatic hypertrophy. 7. Distal cerebrovascular accident. 8. 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 9. Generalized weakness. PLAN: 1. See Dr. Lane on 09/08/2017 for a followup 2-week visit. 2. Continue sacral decubitus care. 3. Decubitus precautions. 4. Dr. Recio is reviewing his last CT scan. 5. Deep venous thrombosis prophylaxis. 6. Stress ulcer prophylaxis. 7. Decubitus precautions. 8. Ray catheter. 9. Wound care. 10. Labs p.r.n. weekly. 11. Specialty bed. 12. Encourage the patient to turn every 2 hours.
--- NOTE | 2017-09-08 19:52 | PRG ---
DATE OF SERVICE: 09/08/2017 HISTORY OF PRESENT ILLNESS: Mr. Matos is a very pleasant 77-year-old white male that had a TAVR at [facility] in [place]. He was transported home by ambulance and for some reason felt that some thing was rubbing up against his coccyx. Two weeks later, he shows up in my office with an unstageab le sacral decubitus that is approximately 2 cm x 5 cm. We arranged for him to see Dr. Lane and [facility] and home, but he refused home health and ended up going to the emergency room where he was seen and admitted to [facility] for a sacral decubitus debridement. Dr. Farmer debrided him and s ent him to [facility] for continued antibiotics and wound care therapy. The patient did well on his wound care therapy for about 2 weeks and his decubitus started regressing . He eventually was seen by Dr. Lane with wound care and she placed him on Medihoney daily along with 4x4s along with a sacral Mepilex. Dr. Lane saw the patient again today and stated that his wound was healing at the bottom and is mu ch better. She states she could not get any bone there and it felt that if he had good care at home, he could be transferred home for continued wound care. We will try to set that up. She states she would be happy to follow him again. PHYSICAL EXAMINATION: VITAL SIGNS: Today reveal blood pressure this morning 116/66, pulse 67-68, respirations 20, O2 sat 9 6% on room air. T-max 97.4. GENERAL: This is a well-developed, well-nourished, very pleasant white male in no apparent distress at this time. HEENT: Reveals normocephalic, nontraumatic cranium. Pupils are equal, round, and reactive. Extraoc ular movements are intact. Nose and throat are slightly moist today. NECK: Supple, without masses, nodes or bruits. No jugular venous distention. LUNGS: The chest is clear to auscultation. No rales, no rhonchi, no wheezes and no cough is heard. CARDIOVASCULAR: Heart reveals a regular rate and rhythm without murmurs, gallops or rubs. ABDOMEN: Obese, soft, nontender, without organomegaly. Normal bowel sounds are noted in all 4 quadr ants. No rebound or guarding is noted. : Deferred. EXTREMITIES: Reveal sacral area still has Mediplex over it. LABORATORY DATA: No labs were done. ASSESSMENT: 1. Stage IV ulcer, slowly healing from the bottom up. 2. Peripheral vascular disease. 3. Systolic dysfunction. 4. Hypertension. 5. Benign prostatic hypertrophy. 6. Aortic stenosis, status post TAVR. 7. Distant cerebrovascular accident. 8. 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 9. Generalized weakness. PLAN: 1. Continue [facility] protocol for sacral decubitus care. 2. Stress ulcer prophylaxis. 3. Decubitus precautions. 4. Deep venous thrombosis prophylaxis. 5. Ray catheter care. 6. Wound care. 7. Labs p.r.n. 8. Specialty bed. 9. Encourage the patient to turn every 2 hours.
[2017-09-09] MEDS: Acetaminophen 325 MG TAB PO PRN ×3 (08:23→21:53)
[2017-09-09] MEDS: Metoprolol Tartrate 25 MG TAB PO SCH ×2 (08:23→21:54)
[2017-09-09] MEDS: Famotidine 20 MG TAB PO SCH ×2 (08:23→21:54)
[2017-09-09] MEDS: Furosemide 40 MG TAB PO SCH (08:23)
[2017-09-09] MEDS: Gabapentin 300 MG CAP PO SCH ×3 (08:23→21:53)
[2017-09-09] MEDS: Ondansetron ODT 4 MG TAB PO SCH (08:24)
[2017-09-09] MEDS: Aspirin 81 mg Enteric Coated Tablet PO SCH (08:24)
[2017-09-09] MEDS: traMADol HCl 50 MG TAB PO PRN ×3 (08:24→21:54)
[2017-09-09] MEDS: Potassium Chloride 20 MEQ TAB PO SCH (12:28)
--- NOTE | 2017-09-09 22:05 | PRG ---
DATE OF ADMISSION: 08/04/2017 DATE OF SERVICE: 09/09/2017 HISTORY OF PRESENT ILLNESS: Mr. Matos is a very pleasant 77-year-old white male. He was at [facility] for TAVR done in [place] around [place]. Unfortunately, when he was transferred home, he states he felt something rubbing up against his coccyx. Two weeks later, he showed up in my office with an unstageable decubitus ulcer, which is about 2 cm x 5 cm. We arranged for him to see Dr. Souleymane davis for wound care and [facility], which he refused. He ended up going to the emergency room where he was seen and admitted to [facility] and had a sacral decubitus debridement don e by Dr. Farmer. The patient was then sent to [facility] for continued IV antibiotics and wound care. He still is getting wound care and unfortunately his wound stopped healing and so was seen by Dr. Sr desir for adjustment of his wound care. She started him on Medihoney daily with 4 x 4s and sacral Me pilex. He was seen again by Dr. Lane yesterday who felt that he was doing much better. [place] like the area of bone that was protruding, is not covered and is much better. PHYSICAL EXAMINATION: VITAL SIGNS: Reveal blood pressure is 118/67, pulse 86-87, respirations 20, O2 sat 98% on room air, T-max 98. GENERAL: This is a well-developed, well-nourished, very pleasant white male, in no apparent distress at this time. HEENT: Reveals normocephalic, nontraumatic cranium. Pupils are equally round and reactive. Extraoc ular movements are intact. Nose and throat are slightly dry. NECK: Supple, without masses, nodes or bruits. CHEST: Clear to auscultation. No rales, rhonchi or wheezes are heard. CARDIOVASCULAR: Reveals a regular rate and rhythm without murmurs, gallops or rubs. ABDOMEN: Obese, soft, nontender, without organomegaly, normal bowel sounds are noted. No rebound or guarding is noted. : Deferred. EXTREMITIES: Reveal sacral ulcer with Mepilex over it. ASSESSMENT: 1. Stage IV ulcer, slowly healing. 2. Peripheral vascular disease. 3. Systolic dysfunction. 4. Hypertension. 5. Benign prostatic hypertrophy. 6. Aortic stenosis, status post transcatheter aortic valve replacement. 7. Distant cerebrovascular accident. 8. Demyelinating axonal neuropathy, which is progressive, mainly in the lower extremities. 9. Generalized weakness. PLAN: 1. Possible discharge tomorrow. 2. Continue Medihoney daily or every other day for sacral decubitus, along with 4 x 4s and Mepilex. 3. Stress ulcer prophylaxis. 4. Decubitus precautions. 5. DVT thrombosis prophylaxis. 6. Ray catheter. 7. Wound care. 8. Labs p.r.n. 9. Speciality bed. 10. Continue to have patient turned every 2 hours.
[2017-09-10] MEDS: Gabapentin 300 MG CAP PO SCH ×3 (08:33→20:49)
[2017-09-10] MEDS: Aspirin 81 mg Enteric Coated Tablet PO SCH (08:33)
[2017-09-10] MEDS: Metoprolol Tartrate 25 MG TAB PO SCH ×2 (08:33→20:50)
[2017-09-10] MEDS: Furosemide 40 MG TAB PO SCH (08:33)
[2017-09-10] MEDS: Acetaminophen 325 MG TAB PO PRN (08:33)
[2017-09-10] MEDS: traMADol HCl 50 MG TAB PO PRN ×2 (08:34→23:33)
[2017-09-10] MEDS: Famotidine 20 MG TAB PO SCH ×2 (08:34→20:50)
[2017-09-10] MEDS: Ondansetron ODT 4 MG TAB PO SCH (11:02)
[2017-09-10] MEDS: Potassium Chloride 20 MEQ TAB PO SCH (12:31)
--- NOTE | 2017-09-11 00:19 | PRG ---
DATE OF SERVICE: 09/10/2017 DATE OF ADMISSION: 08/04/2017 SUBJECTIVE: Mr. Matos is a very pleasant 77-year-old white male admitted to [facility] for TA VR. This happened around [place] and post-replacement, he was transferred home by ambulance. He s tates that something was rubbing against his sacral area the whole time. Two weeks later, he shows u p in my office with unstageable decubitus ulcer on the sacrum that is 2-3 cm about 5 cm. We did set him up to see Dr. Lane, the wound care therapist and [facility], which he refused. He had to go to the emergency room where he was admitted to [facility] and has sacral decubitu s debridement done by Dr. Farmer. Postoperatively, he was sent to [facility] for cont inued antibiotics and wound care. For about 2 weeks, his wound VAC worked well and then afterwards t he tissue got morel and lost the granulation to it. He was seen by Dr. Lane and she recommended ME DIHONEY to be changed daily along with 4 x 4s and Mediplex sacral bandage. The patient has actually done very well and saw Dr. Lane this past Wednesday. She recommended that he continue that, and o ur goal is to get him home. The patient was supposed to be discharged this afternoon. Unfortunately, his specialty bed will not be there until Wednesday. Apparently, something was broken on it and they are trying to get parts to re pair it. He is not happy about that it because he really wanted to go home. Nonetheless, it is what it is. PHYSICAL EXAMINATION: VITAL SIGNS: Reveal blood pressure this morning 111/58, pulse 82, respirations 20, O2 sat 96% on jonathon m air, T-max 96.5. GENERAL: This is a well-developed, well-nourished, very pleasant, slightly obese white male in no ap parent distress at this time. HEENT: Reveals normocephalic, nontraumatic cranium. Pupils are equally round and reactive. Extraoc ular movements are intact. Nose and throat are slightly dry. NECK: Supple, without masses, nodes or bruits. CHEST: Clear to auscultation, no rales, rhonchi or wheezes are heard. HEART: Reveals a regular rate and rhythm without murmurs, gallops or rubs. ABDOMEN: Obese, soft, nontender, without organomegaly. Normal bowel sounds are noted. No rebound o r guarding is noted. GENITOURINARY: Deferred. Ray catheter is still noted in place. EXTREMITIES: Reveal sacral ulcer with Mepilex sacral covering over it. LABORATORY DATA: No lab was done today. IMPRESSION: 1. Stage IV ulcer, slowly healing with MEDIHONEY, 4 x 4s and Mepilex. 2. Severe peripheral vascular disease. 3. Systolic dysfunction. 4. Hypertension. 5. Benign prostatic hypertrophy. 6. Aortic stenosis, status post transcatheter aortic valve replacement. 7. Distal CVA. 8. 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 9. Generalized weakness. PLAN: 1. Patient's discharge today has been postponed until Wednesday until we can get his specialty bed. 2. Continue MEDIHONEY daily dressing changes. 3. Stress ulcer prophylaxis. 4. Decubitus precautions. 5. Deep venous thrombosis prophylaxis. 6. Ray catheter. 7. Wound care. 8. Nebs p.r.n. 9. Awaiting specialty bed. 10. Continue to have the patient turn every 2 hours.
[2017-09-11] MEDS: Aspirin 81 mg Enteric Coated Tablet PO SCH (08:08)
[2017-09-11] MEDS: Furosemide 40 MG TAB PO SCH (08:08)
[2017-09-11] MEDS: Famotidine 20 MG TAB PO SCH ×2 (08:09→20:04)
[2017-09-11] MEDS: Ondansetron ODT 4 MG TAB PO SCH (08:10)
[2017-09-11] MEDS: Metoprolol Tartrate 25 MG TAB PO SCH ×2 (08:10→20:04)
[2017-09-11] MEDS: Gabapentin 300 MG CAP PO SCH ×3 (08:10→20:04)
[2017-09-11] MEDS: Potassium Chloride 20 MEQ TAB PO SCH (13:37)
[2017-09-11] MEDS: Acetaminophen 325 MG TAB PO PRN (15:11)
--- NOTE | 2017-09-12 08:17 | PRG ---
DATE OF SERVICE: 09/12/2017 SUBJECTIVE: The patient feels well. No shortness of breath, chest pain, or palpitations with persis tent stage 4 ulcer being followed by Dr. Lane with Medihoney and 4 x 4s. He is awaiting especiall y bed, hopefully be at his home tomorrow. OBJECTIVE: VITAL SIGNS: Blood pressure is 124/76, temperature 98.1, pulse 80, respirations 18, O2 sat is 96%. LUNGS: Clear. CARDIAC: Displays regular rhythm. No gallops or murmurs. ABDOMEN: Soft, nontender. SKIN AND EXTREMITIES: Show sacral ulcer with Mepilex and Medihoney and bandage. ASSESSMENT: 1. Resolving stage 4 ulcer with Medihoney, 4 x 4s and Mepilex coverage, being followed by home healt h hopefully in the next 1-2 days 2. Severe peripheral vascular disease. 3. Demyelinating axonal neuropathy with significant bilateral lower leg weakness and generalized wea kness. 4. Aortic stenosis, status post transcatheter aortic valve replacement. 5. Hypertension, controlled to goal. PLAN: Continue wound dressing. Continue stress ulcer prophylaxis. Continue deep venous thrombosis prophylaxis. Hopefully, especially bed tomorrow and home tomorrow.
[2017-09-12] MEDS: Aspirin 81 mg Enteric Coated Tablet PO SCH (08:39)
[2017-09-12] MEDS: Ondansetron ODT 4 MG TAB PO SCH (08:39)
[2017-09-12] MEDS: Metoprolol Tartrate 25 MG TAB PO SCH ×2 (08:39→21:40)
[2017-09-12] MEDS: Famotidine 20 MG TAB PO SCH ×2 (08:40→21:40)
[2017-09-12] MEDS: Furosemide 40 MG TAB PO SCH (08:40)
[2017-09-12] MEDS: Gabapentin 300 MG CAP PO SCH ×3 (08:41→21:40)
--- NOTE | 2017-09-12 09:21 | PRG ---
DATE OF SERVICE: 09/11/2017 SUBJECTIVE: The patient feels well, lying in bed, no complaints, unable to be discharged home today because of inability to obtain specialty bed yesterday. OBJECTIVE: GENERAL: Shows sacral wound is covered with Mepilex dressing with minimal drainage and no tenderness . LUNGS: Clear. CARDIAC EXAMINATION: Shows regular rhythm. SKIN AND EXTREMITIES: Showed decreased sensation and strength in both lower legs with no edema, club huong, cyanosis. VITAL SIGNS: Temperature is 98.3, pulse 80, respirations 20, O2 sats 98% on room air, blood pressure 129/58. ASSESSMENT: 1. Stable axonal neuropathy with significant weakness and numbness in both legs, limiting patient to the chair or bed. 2. Subsequent stage IV sacral decubitus, poorly healing with wound VAC now on Mepilex and Medihoney. Wound care being followed by Dr. Lane with specialty bed, coming to his home as soon as availabl e. 3. Aortic stenosis, status post transcatheter aortic valve replacement. 4. Hypertension, controlled to goal. 5. Severe peripheral vascular disease. PLAN: 1. Continue wound care until able to be discharged with specialty bed. 2. Continue deep venous thrombosis and stress ulcer prophylaxis. 3. Continue to stress patient turning every 2 hours.
[2017-09-12] MEDS: Potassium Chloride 20 MEQ TAB PO SCH (12:50)
[2017-09-12] MEDS: Acetaminophen 325 MG TAB PO PRN (21:39)
[2017-09-12] MEDS: traMADol HCl 50 MG TAB PO PRN (21:40)
[2017-09-13 07:28] VITALS: BP 121/76
[2017-09-13] MEDS: Gabapentin 300 MG CAP PO SCH ×2 (08:38→15:40)
[2017-09-13] MEDS: Metoprolol Tartrate 25 MG TAB PO SCH (08:38)
[2017-09-13] MEDS: Ondansetron ODT 4 MG TAB PO SCH (08:39)
[2017-09-13] MEDS: Famotidine 20 MG TAB PO SCH (08:39)
[2017-09-13] MEDS: Acetaminophen 325 MG TAB PO PRN (08:39)
[2017-09-13] MEDS: Furosemide 40 MG TAB PO SCH (08:39)
[2017-09-13] MEDS: Aspirin 81 mg Enteric Coated Tablet PO SCH (08:39)
[2017-09-13] MEDS: traMADol HCl 50 MG TAB PO PRN (08:39)
--- NOTE | 2017-09-13 11:07 | DIS ---
DATE OF ADMISSION: 08/04/2017 DATE OF DISCHARGE: 09/13/2017 HISTORY: Mr. Matos is a well-developed, well-nourished, somewhat obese 77-year-old white male that had a TAVR done at [facility]. This was around [place]. Post-TAVR, he was transferred to [facility] by ambulance which is about a 2.5-hour ride. He states that something was rubbing his sacral area the whole time. Two weeks later after he arrived home, he showed up in my office with unstageable d ecubitus ulcer on the sacrum that is 2-3 cm x 5 cm. We set him up to see Dr. Lane and [facility], but apparently [facility] had a $800 copay which he refused. He ended up going to the emergency room where he was admitted to [facility] and has a sacral decubitus debridement do ne by Dr. Farmer. Postoperatively, he was sent to [facility] for continued antibiotic s and wound care. After about 2 weeks on his wound VAC, his wound lost its granulation tissue and go t san. He was seen by Dr. Lane who recommended DC'ing wound VAC and switching him to Medihoney t o be changed daily or every other day with 4x4s and Mepilex sacral bandage. The patient has done cinda y well and saw Dr. Lane this past week and she recommended that we continue that. He is pushing t o go home and we have a special bed that is supposed to be delivered today. The patient is supposed to be discharged today after he get the specialty bed in his house. He will have his wound changed this morning. We will do blood work today before he leaves. Vital signs reveal this morning, blood pressure 121/76, pulse 78-79, respirations 19-20 and O2 sat 98 % on room air, T-max 98.2. His last labs done revealed a white count of 10,600, which was on the 12th, hemoglobin 11.9, hematocr it 38.1, platelet count 206,000. His sed rate at that time was 68, which is down from 99, which is d own from 120. His electrolytes revealed sodium 139, potassium 4.6, chloride 101, carbon dioxide 29 with a BUN 23, c reatinine 0.89. GFR was 82. His C-reactive protein initially was 8.08 down to 7.14 and on the 12th, it was 2.54. All those labs will be drawn again today along with a prealbumin which was previously 13 on 8. PHYSICAL EXAMINATION: GENERAL: This is a well-developed, well-nourished, very pleasant, obese white male in no apparent di stress at this time. HEENT: Reveals normocephalic, nontraumatic cranium. Pupils are equal, round, and reactive. Extraoc ular movements intact. Nose and throat are slightly dry. NECK: Supple, without masses, nodes or bruits. CHEST: Clear to auscultation, no rales, rhonchi or wheezes are heard. HEART: Regular rate and rhythm without murmurs, gallops or rubs. ABDOMEN: Obese, soft, nontender, without organomegaly. Normal bowel sounds are noted. No rebound o r guarding is noted. GENITOURINARY: Deferred. Ray catheter is still in place. EXTREMITIES: No clubbing, cyanosis or edema. Sacral ulcer is covered with Mepilex sacral. He will be changed today. He will be changed every day or every other day per [facility]. LABORATORY DATA: Labs today are still pending. IMPRESSION: 1. Severe demyelinating axonal neuropathy which is progressive and mainly confines him to bed 99.5% of the time. 2. Stage IV ulcer, slowly healing, but presently with Medihoney and 4 x 4s and Mepilex sacral. 3. Severe peripheral vascular disease. 4. Systolic dysfunction. 5. Hypertension. 6. Benign prostatic hypertrophy. 7. Aortic stenosis, status post TAVR. 8. Distal cerebrovascular accident. 9. Generalized weakness. PLAN: 1. Patient is to be discharged today. 2. The patient states he has all of his meds at home except for possibly some Medihoney medication h e has some already. 3. Patient will be followed by [facility], which will change the Mepilex 3-4 times a day. 4. If the patient's stool soils that area and gets into the decubitus site, then the patient's daugh ter-in-law will be taught how to cleanse that and reapply the Medihoney and Mepilex. 5. Labs will be done here today. 6. [facility] would do labs including a CBC, comp met, sedimentation rate and C-reactive prot ein once a week, usually on Wednesday or Wednesday. 7. Continue present medications. 8. Encourage the patient's stay off his back and to turn every 2 hours. 9. Encourage the patient to stay out of the wheelchair. DISCHARGE MEDICATIONS: Include the following, 1. Tylenol p.r.n. 2. Aspirin 81 mg a day. 3. Diltiazem 120 mg CD (Cardizem CD) once daily. 4. Pepcid 20 mg twice a day. 5. Lasix 40 mg a day. 6. Gabapentin 600 mg at night and 300 mg at 9:00 and 1500 hours. 7. Metoprolol tartrate 25 mg b.i.d. 8. Potassium chloride 20 mEq once a day. 9. Tramadol 100 mg q.6 hours p.r.n. with Tylenol 500 p.r.n. severe pain. 10. Patient also will need Medihoney to apply to the wound site daily or every other day. The patie nt will also have Mepilex sacrals. DISCHARGE INSTRUCTIONS: 1. The patient will see me Dr. Lane for followup in about a month. 2. Continue present therapy. There is a question, the patient will call me.
[2017-09-13 12:02] LABS: #Basophils 0.1 thou/uL (0.0-0.2); #Eosinphils 0.3 thou/uL (0.0-0.7); #Lymphocytes 1.2 thou/uL (1.20-3.40); #Neutrophils 6.8 thou/uL (1.40-6.50); %Eosinophils 2.7 % (0.0-10.0); %Lymphocytes 12.3 % (21.0-51.0); Hemoglobin 11.6 g/dL (14.0-18.0); Mean Corpuscular HGB CONC 32.2 g/dL (32.0-36.0); Mean Corpuscular Hemoglobin 27.5 pg (27.0-31.0); Mean Corpuscular Volume 85.2 fl (80.0-94.0); Mean Platelet Volume 8.3 fL (7.4-10.4); Platelet Count 192 thou/uL (130-400); RBC Distribution Width 14.5 % (11.5-14.5); Red Blood Cell (RBC) Count 4.22 mill/uL (4.70-6.10); White Blood Cell (WBC) Count 9.4 thou/uL (4.8-10.8)
[2017-09-13] MEDS: Potassium Chloride 20 MEQ TAB PO SCH (12:39)
[2017-09-13 15:53] VITALS: TEMP 96
[2017-09-13 18:59] LABS: CRP (Inflammatory) 5.26 mg/dL (= or < 0.5)
[2017-09-13 22:14] LABS: ALT (SGPT) Less than 7 U/L (8-55); AST (SGOT) 12 U/L (5-34); Albumin 3.2 g/dL (3.4-4.8); Alkaline Phosphatase 58 U/L (40-150); Anion Gap 12 mmol/L (10-20); BUN (Urea Nitrogen) 20 mg/dL (8.4-25.7); Bilirubin, Total 0.3 mg/dL (0.2-1.2); Calc. Creatinine Clearance 99 mL/min (70-130); Calcium 8.6 mg/dL (7.8-10.44); Carbon Dioxide 28 mmol/L (23-31); Chloride 100 mmol/L (98-107); Estimated GFR-MDRD 86; Globulin 2.7 g/dL (2.4-3.5); Glucose 93 mg/dL (83-110); Potassium 4.2 mmol/L (3.5-5.1); Protein, Total 5.9 g/dL (5.8-8.1); Sodium 136 mmol/L (136-145)
== END 2017-09-13 16:51 | disposition home health service (06) | DRG 592 ==
LOC: NAV ACUTE 20:06 → UNDOADMIN 20:06 → UNDODISIN 09-13 16:51
PROVIDERS: ADMIT Family Medicine; ATTEND Family Medicine
DX: L89.154 Pressure ulcer of sacral region, stage 4 (principal); I11.0 Hypertensive heart disease with heart failure; E66.01 Morbid (severe) obesity due to excess calories; I35.0 Nonrheumatic aortic (valve) stenosis; I50.32 Chronic diastolic (congestive) heart failure; G61.81 Chronic inflammatory demyelinating polyneuritis; R53.1 Weakness; E78.5 Hyperlipidemia, unspecified; Z86.73 Personal history of transient ischemic attack (TIA), and cerebral infarction without residual deficits; Z79.01 Long term (current) use of anticoagulants; Z87.891 Personal history of nicotine dependence; K21.9 Gastro-esophageal reflux disease without esophagitis; Z95.0 Presence of cardiac pacemaker; Z95.1 Presence of aortocoronary bypass graft; Z95.2 Presence of prosthetic heart valve; I73.9 Peripheral vascular disease, unspecified; N40.0 Benign prostatic hyperplasia without lower urinary tract symptoms; R11.0 Nausea; J11.1 Influenza due to unidentified influenza virus with other respiratory manifestations; Z68.31 Body mass index [BMI] 31.0-31.9, adult
CPT/HCPCS: 36415; 71045; 72192; 80048; 80053; 84134; 85025; 85652; 86140; 87070; 87076; 87077; 87186; 87205; 97602; Q0162

== ENCOUNTER 2017-10-29 08:56 | Emergency (ER) | payer MEDICARE ==
[2017-10-29 10:18] LABS: Anion Gap 15 mmol/L (10-20); BUN (Urea Nitrogen) 14 mg/dL (8.4-25.7); Calc. Creatinine Clearance 0 mL/min (70-130); Calcium 9.7 mg/dL (7.8-10.44); Carbon Dioxide 27 mmol/L (23-31); Chloride 102 mmol/L (98-107); Estimated GFR-MDRD 68; Glucose 93 mg/dL (83-110); Potassium 3.8 mmol/L (3.5-5.1); Sodium 140 mmol/L (136-145)
[2017-10-29] MEDS ORDERED: traMADol HCl 50 MG TAB ONE (11:17)
== END 2017-10-29 12:25 | disposition home or self-care (01) ==
LOC: NAV ERS 08:56
DX: R33.9 Retention of urine, unspecified (principal); L89.159 Pressure ulcer of sacral region, unspecified stage; E78.5 Hyperlipidemia, unspecified; I10 Essential (primary) hypertension; I25.10 Atherosclerotic heart disease of native coronary artery without angina pectoris; K21.9 Gastro-esophageal reflux disease without esophagitis; G62.9 Polyneuropathy, unspecified; Z87.891 Personal history of nicotine dependence; Z86.73 Personal history of transient ischemic attack (TIA), and cerebral infarction without residual deficits; Z79.02 Long term (current) use of antithrombotics/antiplatelets; Z79.82 Long term (current) use of aspirin; Z79.899 Other long term (current) drug therapy; Z79.891 Long term (current) use of opiate analgesic
CPT/HCPCS: 36415; 51702; 80048

== ENCOUNTER 2018-07-06 11:08 | Outpatient (CLI) | payer MEDICARE ==
[2018-07-06 14:15] LABS: #Eosinphils 0.2 thou/uL (0.0-0.7); #Monocytes 0.7 thou/uL (0.11-0.59); #Neutrophils 4.9 thou/uL (1.40-6.50); %Basophils 0.7 % (0.0-1.0); %Eosinophils 2.7 % (0.0-10.0); %Lymphocytes 14.1 % (21.0-51.0); %Monocytes 10.3 % (0.0-10.0); %Neutrophils 72.2 % (42.0-75.0); Hemoglobin 14.7 g/dL (14.0-18.0); Mean Corpuscular HGB CONC 32.5 g/dL (32.0-36.0); Mean Corpuscular Hemoglobin 29.8 pg (27.0-31.0); Mean Corpuscular Volume 91.6 fL (78.0-98.0); Mean Platelet Volume 8.5 fL (7.4-10.4); Platelet Count 147 thou/uL (130-400); RBC Distribution Width 12.9 % (11.5-14.5); Red Blood Cell (RBC) Count 4.95 mill/uL (4.70-6.10); White Blood Cell (WBC) Count 6.8 thou/uL (4.8-10.8)
[2018-07-06 14:18] LABS: Bilirubin Negative (Negative); Blood, Urine Small (Negative); Clarity Slightly Cloudy (Clear); Glucose, Urine (Dipstick) Negative (Negative); Leukocyte Large (Negative); Nitrite Positive (Negative); Protein, Urine (Dipstick) 100 mg/dL (Neg-Trace); Specific Gravity, Urine 1.015 (1.005-1.030)
[2018-07-06 14:28] LABS: ALT (SGPT) 6 U/L (8-55); AST (SGOT) 16 U/L (5-34); Albumin 4.1 g/dL (3.4-4.8); Alkaline Phosphatase 75 U/L (40-150); Anion Gap 14 mmol/L (10-20); BUN (Urea Nitrogen) 22 mg/dL (8.4-25.7); Bilirubin, Direct 0.2 mg/dL (0.1-0.3); Bilirubin, Total 0.5 mg/dL (0.2-1.2); Calc. Creatinine Clearance 0 mL/min (70-130); Calcium 9.6 mg/dL (7.8-10.44); Carbon Dioxide 27 mmol/L (23-31); Cardiac Risk 4.7 (Less than 4.5); Chloride 102 mmol/L (98-107); Cholesterol 197 mg/dl (< 200 Desired); Estimated GFR-MDRD 63; Glucose 90 mg/dL (83-110); HDL Cholesterol 42 mg/dL (>60 Neg Risk); LDL Cholesterol, Calculated 134 mg/dL; Potassium 3.9 mmol/L (3.5-5.1); Protein, Total 7.2 g/dL (5.8-8.1); Sodium 139 mmol/L (136-145); Triglycerides 103 mg/dL (Less than 150)
[2018-07-06 14:30] LABS: RBC/HPF 0-3 HPF (0-3)
[2018-07-06 14:31] LABS: Bacteria/HPF 3+ HPF (None Seen); Crystals/HPF 3+ AMORPH PHOS HPF (Negative); Other Microscopic Description NO; Squamous Epithelial 0-3 HPF (0-3)
[2018-07-06 16:05] LABS: Follow-up Chemistry Comp? YES; Follow-up Hematology Comp? YES; Follow-up Result - Chemistry REPORT FAXED; Follow-up Result - Hematology REPORT FAXED; Follow-up Result - Urinalysis REPORT FAXED; Follow-up UA Comp? YES
== END 2018-07-06 11:09 | disposition home or self-care (01) ==
LOC: NAV LABSP 11:08
PROVIDERS: ATTEND Family Medicine
DX: I11.0 Hypertensive heart disease with heart failure (principal); N40.0 Benign prostatic hyperplasia without lower urinary tract symptoms; R33.9 Retention of urine, unspecified; I50.9 Heart failure, unspecified
CPT/HCPCS: 80048; 80061; 80076; 81001; 83036; 84443; 85025; 87077; 87086; 87186

== ENCOUNTER 2018-10-20 13:29 | Outpatient (CLI) | payer MEDICARE ==
[2018-10-20 13:59] LABS: Bilirubin Negative (Negative); Blood, Urine Trace (Negative); Glucose, Urine (Dipstick) Negative (Negative); Leukocyte Large (Negative); Nitrite Positive (Negative); Protein, Urine (Dipstick) 30 mg/dL (Neg-Trace)
[2018-10-20 14:07] LABS: Clarity Cloudy (Clear)
[2018-10-20 14:10] LABS: Bacteria/HPF 4+ HPF (None Seen); Transitional Epithelial 0-3 HPF (0-3)
[2018-10-20 14:21] LABS: Follow-up Result - Urinalysis REPORT FAXED; Follow-up UA Comp? YES
== END 2018-10-20 13:30 | disposition home or self-care (01) ==
LOC: NAVSJIPCSP 13:29
PROVIDERS: ATTEND Family Medicine
DX: N39.0 Urinary tract infection, site not specified (principal)
CPT/HCPCS: 81001; 87077; 87086; 87186

== ENCOUNTER 2020-01-13 14:33 | Emergency (ER) | payer MEDICARE ==
[2020-01-13 15:30] LABS: #Basophils 0.1 thou/uL (0.0-0.2); #Eosinphils 0.1 thou/uL (0.0-0.7); #Lymphocytes 0.7 thou/uL (1.20-3.40); #Monocytes 0.8 thou/uL (0.11-0.59); #Neutrophils 6.6 thou/uL (1.40-6.50); %Basophils 1.1 % (0.0-1.0); %Lymphocytes 8.9 % (21.0-51.0); Hemoglobin 11.5 g/dL (14.0-18.0); Mean Corpuscular HGB CONC 30.7 g/dL (32.0-36.0); Mean Corpuscular Hemoglobin 28.7 pg (27.0-31.0); Mean Corpuscular Volume 93.5 fL (78.0-98.0); Mean Platelet Volume 8.7 fL (7.4-10.4); Platelet Count 162 thou/uL (130-400); Red Blood Cell (RBC) Count 4.02 mill/uL (4.70-6.10); White Blood Cell (WBC) Count 8.3 thou/uL (4.8-10.8)
[2020-01-13 15:44] LABS: ALT (SGPT) Less than 6 U/L (8-55); AST (SGOT) 15 U/L (5-34); Albumin 3.9 g/dL (3.4-4.8); Alkaline Phosphatase 76 U/L (40-110); Anion Gap 17 mmol/L (10-20); BUN (Urea Nitrogen) 36 mg/dL (8.4-25.7); Bilirubin, Total 0.5 mg/dL (0.2-1.2); CRP (Inflammatory) 3.19 mg/dL (= or < 0.5); Calc. Creatinine Clearance 0 mL/min (70-130); Calcium 8.8 mg/dL (7.8-10.44); Carbon Dioxide 23 mmol/L (23-31); Chloride 104 mmol/L (98-107); Estimated GFR-MDRD 28; Globulin 3.6 g/dL (2.4-3.5); Glucose 96 mg/dL (83-110); Potassium 4.5 mmol/L (3.5-5.1); Protein, Total 7.5 g/dL (5.8-8.1); Sodium 139 mmol/L (136-145)
--- NOTE | 2020-01-13 16:35 | RAD ---
TWO VIEWS LEFT TIBIA/FIBULA: 01/13/20 HISTORY: Left lower leg worsening wound after scratching himself with his fingernail. FINDINGS: Two views of the left tibia/fibula shows moderate diffuse soft tissue swelling. There appears to be a wound along the lateral aspect of the distal fibula. No underlying osseous erosions are seen. Vascul ar calcifications are present. Hardware is seen from a left knee prosthesis. IMPRESSION: No evidence of acute osseous abnormality. POS: [facility]
[2020-01-13] MEDS ORDERED: Sulfameth/Trimethoprim DS 800-160mg TAB ONE (17:15)
[2020-01-13] MEDS ORDERED: Amoxicillin/Potassium Clav 875 MG TAB ONE (17:15)
== END 2020-01-13 18:20 | disposition home or self-care (01) ==
LOC: NAV ERS 14:33
DX: L89.893 Pressure ulcer of other site, stage 3 (principal); L03.116 Cellulitis of left lower limb; E78.00 Pure hypercholesterolemia, unspecified; E78.5 Hyperlipidemia, unspecified; I10 Essential (primary) hypertension; I25.10 Atherosclerotic heart disease of native coronary artery without angina pectoris; G58.9 Mononeuropathy, unspecified; Z87.891 Personal history of nicotine dependence; Z79.891 Long term (current) use of opiate analgesic; Z86.73 Personal history of transient ischemic attack (TIA), and cerebral infarction without residual deficits; Z79.899 Other long term (current) drug therapy
CPT/HCPCS: 80053; 85025; 86140

== ENCOUNTER 2020-01-20 21:56 | Emergency (ER) | payer MEDICARE ==
[2020-01-20] MEDS ORDERED: Lidocaine 1% (PF) 30 ML VIAL ONE (22:14)
[2020-01-20] MEDS ORDERED: Lidocaine 1% w/Epinephrine 1:100K 30 ML VIAL ONE (22:14)
[2020-01-20] MEDS ORDERED: Bacitracin 1 PK ONE ×2 (22:37→23:01)
== END 2020-01-20 23:30 | disposition home or self-care (01) ==
LOC: NAV ERS 21:56
DX: S81.812A Laceration without foreign body, left lower leg, initial encounter (principal); S91.114A Laceration without foreign body of right lesser toe(s) without damage to nail, initial encounter; S91.204A Unspecified open wound of right lesser toe(s) with damage to nail, initial encounter; E78.5 Hyperlipidemia, unspecified; E78.00 Pure hypercholesterolemia, unspecified; I10 Essential (primary) hypertension; I25.10 Atherosclerotic heart disease of native coronary artery without angina pectoris; G62.9 Polyneuropathy, unspecified; K21.9 Gastro-esophageal reflux disease without esophagitis; Z86.73 Personal history of transient ischemic attack (TIA), and cerebral infarction without residual deficits; Z87.891 Personal history of nicotine dependence; Z79.899 Other long term (current) drug therapy; W22.8XXA Striking against or struck by other objects, initial encounter
CPT/HCPCS: 12002; J2001

== ENCOUNTER 2020-09-13 18:03 | Inpatient (IN) | payer MEDICARE ==
[2020-09-13 18:12] VITALS: BMI 33.3
[2020-09-13] MEDS: Gabapentin 300 MG CAP PO SCH (21:50)
[2020-09-13] MEDS: traMADol HCl 50 MG TAB PO PRN (21:52)
[2020-09-13] MEDS: Acetaminophen 500 MG TAB PO SCH (23:00)
[2020-09-14 05:34] LABS: #Basophils 0.1 thou/uL (0.0-0.2); #Eosinphils 0.2 thou/uL (0.0-0.7); #Lymphocytes 0.9 thou/uL (1.20-3.40); %Basophils 0.7 % (0.0-1.0); %Eosinophils 2.4 % (0.0-10.0); %Lymphocytes 10.7 % (21.0-51.0); %Monocytes 11.9 % (0.0-10.0); %Neutrophils 74.3 % (42.0-75.0); Hemoglobin 7.8 g/dL (14.0-18.0); Mean Corpuscular HGB CONC 31.7 g/dL (32.0-36.0); Mean Corpuscular Volume 94.5 fL (78.0-98.0); Mean Platelet Volume 6.9 fL (7.4-10.4); Platelet Count 199 thou/uL (130-400); RBC Distribution Width 17.6 % (11.5-14.5); Red Blood Cell (RBC) Count 2.61 mill/uL (4.70-6.10); White Blood Cell (WBC) Count 8.1 thou/uL (4.8-10.8)
[2020-09-14 05:50] LABS: ALT (SGPT) Less than 6 U/L (8-55); AST (SGOT) 13 U/L (5-34); Alkaline Phosphatase 69 U/L (40-110); Anion Gap 13 mmol/L (10-20); BUN (Urea Nitrogen) 30 mg/dL (8.4-25.7); Bilirubin, Total 0.5 mg/dL (0.2-1.2); Calc. Creatinine Clearance 45 mL/min (70-130); Calcium 8.2 mg/dL (7.8-10.44); Carbon Dioxide 24 mmol/L (23-31); Chloride 106 mmol/L (98-107); Globulin 3.1 g/dL (2.4-3.5); Glucose 95 mg/dL (83-110); Potassium 4.1 mmol/L (3.5-5.1); Protein, Total 6.1 g/dL (5.8-8.1); Sodium 139 mmol/L (136-145)
[2020-09-14] MEDS: Acetaminophen 500 MG TAB PO SCH ×4 (05:50→23:36)
[2020-09-14] MEDS: Ciprofloxacin 500 MG TAB PO SCH ×2 (05:50→20:51)
[2020-09-14] MEDS: Potassium Chloride 20 MEQ TAB PO SCH (08:34)
[2020-09-14] MEDS: Gabapentin 300 MG CAP PO SCH ×4 (08:34→21:06)
[2020-09-14] MEDS: Apixaban 2.5 MG TAB PO SCH ×2 (08:34→20:51)
[2020-09-14] MEDS: Clopidogrel Bisulfate 75 MG TAB PO SCH (08:34)
[2020-09-14] MEDS: Amlodipine 5 MG TAB PO SCH (08:34)
[2020-09-14] MEDS: Furosemide 40 MG TAB PO SCH (08:35)
--- NOTE | 2020-09-14 13:44 | HP ---
PRINCIPAL DIAGNOSIS: Left distal femur fracture, status post surgical fixation for therapy. BRIEF HISTORY: This is an 80-year-old male, who is a patient of Dr. Henriquez, apparently slid off the bed and noticed pain in his left leg. He presented to the ER for evaluation and was diagnosed with left distal femur fracture. He underwent surgical fixation and then was felt to be a candidate for therapy and so was transferred here. Currently, the patient is up in bed, getting ready to eat lunch. He denies any pain. He denies any chest pain or shortness of breath. He denies any lightheadedness or dizziness. Discussed with Nursing. PAST MEDICAL HISTORY: 1. Coronary artery disease. 2. Hypertension. 3. Dyslipidemia. 4. Severe aortic stenosis. 5. Diastolic dysfunction. 6. Gastroesophageal reflux disease. 7. Progressive demyelinating neuropathy. 8. History of CVA. 9. Osteoarthritis. PAST SURGICAL HISTORY: 1. Coronary artery bypass grafting x3. 2. Permanent pacemaker placement. 3. History of transcatheter aortic valve replacement in 2017. 4. Left total knee replacement. 5. Transurethral resection of the prostate. 6. Lumbar spine surgery. ALLERGIES: NO KNOWN DRUG ALLERGIES. FAMILY HISTORY: Positive for coronary artery disease in both of his parents. PSYCHOSOCIAL HISTORY: Former smoker. He quit smoking in 1966. Denies any alcohol or recreational drug abuse. MEDICATIONS: He has been transferred here on the following medications; 1. Tylenol 1000 mg q.6 p.r.n. 2. Norvasc 2.5 mg daily. 3. Eliquis 2.5 mg b.i.d. 4. Cipro 500 mg b.i.d. 5. Plavix 75 mg daily. 6. Lasix 40 daily. 7. Neurontin 600 at bedtime and 300 mg in the morning and the evening. 8. Potassium 20 mEq daily. 9. Tramadol 50 mg q.8 p.r.n. 10. He is on Cipro for possible drainage from his incision site. He apparently also has a pretty bad heel decubitus stage IV, which I do not think is going to heal on its own and he may need surgical debridement later on. If there is vascular insufficiency, he may even end up with a BKA. REVIEW OF SYSTEMS: CARDIOVASCULAR SYSTEM: Denies any chest pain, shortness of breath, palpitations, PND, orthopnea, or pedal edema. RESPIRATORY SYSTEM: Denies any chronic cough, expectoration, or pleuritic-type chest pain. GASTROINTESTINAL SYSTEM: Denies any nausea, vomiting, diarrhea, constipation, hematemesis, melena, or hematochezia. GENITOURINARY SYSTEM: Denies any frequency, urgency, dysuria, or hematuria. CENTRAL NERVOUS SYSTEM: No focal numbness, weakness, or fainting spells. He did have episode of confusion and agitation in the previous hospital. EXTREMITIES: Bilateral lower extremity pressure ulcers. He does complain of very minimal pain to his left leg. Pain medicines are helping. SKIN: Denies any rash, but again, he has decubitus to his heels. CENTRAL NERVOUS SYSTEM: Denies any focal numbness or weakness. He did have a recent fall, which resulted in the left distal femur fracture. PHYSICAL EXAMINATION: GENERAL: The patient is up in bed, getting ready to eat lunch. He states he is hungry. He responds appropriately to simple questions. VITAL SIGNS: He is afebrile, heart rate 71, respirations 16, oxygen saturation 97% on room air, blood pressure 153/67. HEENT: Normocephalic and atraumatic. Pupils are equally reactive to light and accommodation. Extraocular muscles intact. No JVD, thyromegaly, cervical adenopathy, or throat exudates. No carotid bruits. CARDIOVASCULAR SYSTEM: S1-S2 plus. RESPIRATORY SYSTEM: Normal vesicular breath sounds with decreased air entry in the bases. ABDOMEN: Soft, obese, nontender. Bowel sounds heard in all quadrants. EXTREMITIES: Without cyanosis or clubbing. Chronic stasis changes and brawny edema. Left distal femur incision is healthy, healed decubitus stage IV. We will definitely need peripheral vascular workup as well as possible surgical consultation in the near future. LABORATORY DATA: Laboratory values done this morning shows a white count of 8.1, H and H 7.8 and 24.7. Sodium 139, potassium 4.1, BUN and creatinine are 30 and 1.89. IMPRESSION: 1. Left distal femur fracture, status post surgical fixation. 2. Heel decubitus. 3. Coronary artery disease. 4. Hypertension. 5. Dyslipidemia. 6. Atrial fibrillation. 7. Osteoarthritis. 8. Deconditioning. PLAN: 1. Continue current medications. 2. Heart healthy diet. 3. Monitor blood pressure and adjust medications. 4. Monitor heart rate and rhythm. 5. Wound care. 6. Orthopedic precautions and incision care. 7. PT and OT eval and treat. 8. Order lower extremity arterial Dopplers to rule out peripheral vascular disease. 9. Consult PT for wound care as well. 10. May need surgical consult. 11. DVT prophylaxis-the patient is on Eliquis. 12. Discussed with the patient and Nursing. All questions answered. Job ID: [id number]
[2020-09-15] MEDS: Ciprofloxacin 500 MG TAB PO SCH ×2 (05:38→21:17)
[2020-09-15] MEDS: Acetaminophen 500 MG TAB PO SCH ×4 (05:38→23:34)
[2020-09-15] MEDS ORDERED: Clopidogrel Bisulfate 75 MG TAB ONE (08:24)
[2020-09-15] MEDS: Gabapentin 300 MG CAP PO SCH ×3 (09:38→21:14)
[2020-09-15] MEDS: Potassium Chloride 20 MEQ TAB PO SCH (09:38)
[2020-09-15] MEDS: Amlodipine 5 MG TAB PO SCH (09:38)
[2020-09-15] MEDS: Furosemide 40 MG TAB PO SCH (09:39)
[2020-09-15] MEDS: Clopidogrel Bisulfate 75 MG TAB PO SCH (09:39)
[2020-09-15] MEDS: Apixaban 2.5 MG TAB PO SCH ×2 (09:39→21:17)
[2020-09-15] MEDS ORDERED: Polyethylene Glycol 3350 17 GM Packet PO SCH (14:30)
--- NOTE | 2020-09-15 14:49 | PRG ---
DATE OF SERVICE: 09/15/2020 SUBJECTIVE: Mr. Matos is up in bed. He just finished lunch. He states he is tired of lying in bed. He denies any pain. No family at bedside. OBJECTIVE: VITAL SIGNS: He is afebrile. Heart rate 62, respirations 18, oxygen saturation 95% on room air, blood pressure 127/58. CARDIOVASCULAR SYSTEM: S1-S2 plus. RESPIRATORY SYSTEM: Normal vesicular breath sounds. ABDOMEN: Soft, nontender. Bowel sounds heard in all 4 quadrants. EXTREMITIES: Without cyanosis, clubbing. Both foot with an Tomy wrap in dressing. Left foot with wound VAC. Left distal femur incision with dressing. CENTRAL NERVOUS SYSTEM: Generalized weakness, otherwise nonfocal. IMPRESSION: 1. Left distal femur fracture, status post surgical fixation. 2. Bilateral heel decubitus, left with a wound VAC. 3. Coronary artery disease. 4. Hypertension. 5. Dyslipidemia. 6. Atrial fibrillation. 7. Osteoarthritis. 8. Deconditioning. PLAN: 1. Continue current medications. 2. Heart healthy diet. 3. Monitor blood pressure and adjust medications as needed. 4. Monitor heart rate and rhythm. 5. Wound care with wound VAC. 6. Schedule arterial Doppler to rule out PVD. 7. Continue PT and OT. 8. Orthopedic precautions and incision care. 9. DVT prophylaxis, patient is on Eliquis. 10. Routine laboratory values. 11. Dr. Martinez membreno [facility]. Job ID: [id number]
[2020-09-15] MEDS: traMADol HCl 50 MG TAB PO PRN (21:18)
[2020-09-16] MEDS: Acetaminophen 500 MG TAB PO SCH ×3 (05:53→18:47)
[2020-09-16] MEDS: Ciprofloxacin 500 MG TAB PO SCH ×2 (05:53→21:02)
[2020-09-16] MEDS: Furosemide 40 MG TAB PO SCH (08:26)
[2020-09-16] MEDS: Amlodipine 5 MG TAB PO SCH (08:26)
[2020-09-16] MEDS: Apixaban 2.5 MG TAB PO SCH ×2 (08:29→21:02)
[2020-09-16] MEDS: Clopidogrel Bisulfate 75 MG TAB PO SCH (08:29)
[2020-09-16] MEDS: Polyethylene Glycol 3350 17 GM Packet PO SCH (08:29)
[2020-09-16] MEDS: Gabapentin 300 MG CAP PO SCH ×3 (08:29→21:00)
[2020-09-16] MEDS: Potassium Chloride 20 MEQ TAB PO SCH (08:30)
[2020-09-16] MEDS: traMADol HCl 50 MG TAB PO PRN ×2 (08:39→21:00)
[2020-09-17] MEDS: Acetaminophen 500 MG TAB PO SCH ×5 (00:08→23:56)
[2020-09-17] MEDS: Ciprofloxacin 500 MG TAB PO SCH ×2 (06:08→20:08)
[2020-09-17] MEDS: traMADol HCl 50 MG TAB PO PRN (06:19)
[2020-09-17] MEDS: Amlodipine 5 MG TAB PO SCH (09:46)
[2020-09-17] MEDS: Furosemide 40 MG TAB PO SCH (09:46)
[2020-09-17] MEDS: Polyethylene Glycol 3350 17 GM Packet PO SCH (09:47)
[2020-09-17] MEDS: Gabapentin 300 MG CAP PO SCH ×3 (09:47→20:09)
[2020-09-17] MEDS: Potassium Chloride 20 MEQ TAB PO SCH (09:47)
[2020-09-17] MEDS: Clopidogrel Bisulfate 75 MG TAB PO SCH (09:47)
[2020-09-17] MEDS: Apixaban 2.5 MG TAB PO SCH ×2 (09:47→20:08)
[2020-09-18] MEDS: Acetaminophen 500 MG TAB PO SCH ×2 (05:55→12:32)
[2020-09-18] MEDS: Ciprofloxacin 500 MG TAB PO SCH (05:55)
[2020-09-18] MEDS: Amlodipine 5 MG TAB PO SCH (09:08)
[2020-09-18] MEDS: Potassium Chloride 20 MEQ TAB PO SCH (09:08)
[2020-09-18] MEDS: Polyethylene Glycol 3350 17 GM Packet PO SCH (09:08)
[2020-09-18] MEDS: Gabapentin 300 MG CAP PO SCH (09:08)
[2020-09-18] MEDS: Clopidogrel Bisulfate 75 MG TAB PO SCH (09:09)
[2020-09-18] MEDS: Apixaban 2.5 MG TAB PO SCH (09:09)
[2020-09-18] MEDS: Furosemide 40 MG TAB PO SCH (09:09)
[2020-09-18 13:03] VITALS: BP 138/62; TEMP 97.7
--- NOTE | 2020-09-19 14:43 | PRG ---
DATE OF SERVICE: 09/16/2020 SUBJECTIVE: The patient is an 80-year-old male, here for PT and OT Services following a left femur fracture with ORIF. The patient has not been able to fully participate in physical therapy due to his bilateral decubitus ulcers with a stage IV decubitus on the left, requiring wound VAC. The patient has wound VAC in place, but again is not able to participate in therapy. We will need to discuss his course and his ultrasound findings with his x ray operator, Dr. Justin Gary and see what his recommendations are for this. OBJECTIVE: VITAL SIGNS: Temperature 96.4, pulse 55 to 56, respirations 20, O2 sats 98% on room air, and blood pressure ranging from 122/60 to 141/65. GENERAL: An 80-year-old male, lying in bed, no acute distress. Wound VAC in place. HEART: Regular rate and rhythm. No murmurs, gallops, or rubs. RESPIRATIONS: Clear to auscultation bilaterally. No wheezes or rhonchi. ABDOMEN: Soft, nontender to palpation. Bowel sounds positive in all 4 quadrants. EXTREMITIES: The patient with multiple decubiti in bilateral extremities with a stage IV decubitus on the left foot with a wound VAC in place. Bone was exposed. DIAGNOSTIC DATA: Arterial ultrasound results show monophasic waveforms in bilateral lower extremities. Left SFA could not be assessed distally secondary to patient positioning. Bilateral posterior tibial arteries appear occluded. ASSESSMENT: 1. Status post left open reduction and internal fixation of left femur, status post fall from bed. 2. Recovery from surgery, requiring PT and OT Services. 3. Peripheral arterial disease. 4. Stage IV decubitus of left heel. 5. Multiple decubiti on bilateral lower extremities. 6. Hypertension. 7. Coronary artery disease/peripheral arterial disease. 8. Dyslipidemia. 9. Atrial fibrillation. 10. Osteoarthritis. 11. Deconditioning. PLAN: 1. We will need to consult with the patient's x ray operator, Dr. Justin Gary to see what his recommendations for treatment of his PAD with his decubitus ulcers. 2. Heart healthy diet. 3. Monitor blood pressure and adjust medications as needed. 4. Monitor heart rate and rhythm. 5. Wound care with wound VAC. Will need a Wound Care consult. 6. Continue PT and OT as able. 7. Orthopedic precautions and incision care. 8. DVT prophylaxis, on Eliquis for his atrial fibrillation. 9. Routine laboratory values. Job ID: [id number]
== END 2020-09-18 14:00 | disposition short-term general hospital (02) | DRG 559 ==
LOC: NAV ACUTE 18:03
PROVIDERS: ADMIT Family Medicine; ATTEND Family Medicine
DX: S72.402D Unspecified fracture of lower end of left femur, subsequent encounter for closed fracture with routine healing (principal); L89.624 Pressure ulcer of left heel, stage 4; W01.0XXD Fall on same level from slipping, tripping and stumbling without subsequent striking against object, subsequent encounter; I25.10 Atherosclerotic heart disease of native coronary artery without angina pectoris; I10 Essential (primary) hypertension; E78.5 Hyperlipidemia, unspecified; L89.619 Pressure ulcer of right heel, unspecified stage; Z96.652 Presence of left artificial knee joint; I48.91 Unspecified atrial fibrillation; R53.81 Other malaise; K21.9 Gastro-esophageal reflux disease without esophagitis; M19.90 Unspecified osteoarthritis, unspecified site; Z86.73 Personal history of transient ischemic attack (TIA), and cerebral infarction without residual deficits; Z95.1 Presence of aortocoronary bypass graft; Z95.0 Presence of cardiac pacemaker; Z98.890 Other specified postprocedural states; Z82.49 Family history of ischemic heart disease and other diseases of the circulatory system; Z87.891 Personal history of nicotine dependence; Z79.01 Long term (current) use of anticoagulants; Z79.2 Long term (current) use of antibiotics; Z79.899 Other long term (current) drug therapy
CPT/HCPCS: 36415; 80053; 83735; 85025; 97602

== ENCOUNTER 2020-09-23 19:05 | Inpatient (IN) | payer MEDICARE ==
[2020-09-23 19:43] VITALS: BMI 34.2
[2020-09-23] MEDS ORDERED: Ondansetron ODT 4 MG TAB PO PRN (21:35)
[2020-09-23] MEDS ORDERED: Senokot S 8.6-50 MG TAB PO PRN (21:37)
[2020-09-23] MEDS ORDERED: Bisacodyl 5 MG TAB PO PRN (21:39)
[2020-09-23] MEDS: Gabapentin 300 MG CAP PO SCH (21:51)
[2020-09-24] MEDS: Acetaminophen 500 MG TAB PO SCH ×4 (00:30→17:21)
[2020-09-24 05:11] LABS: Red Blood Cell (RBC) Count 2.78 mill/uL (4.70-6.10); White Blood Cell (WBC) Count 5.8 thou/uL (4.8-10.8)
[2020-09-24 05:12] LABS: #Basophils 0.1 thou/uL (0.0-0.2); #Eosinphils 0.3 thou/uL (0.0-0.7); #Lymphocytes 0.5 thou/uL (1.20-3.40); #Monocytes 0.7 thou/uL (0.11-0.59); #Neutrophils 4.3 thou/uL (1.40-6.50); %Basophils 1.1 % (0.0-1.0); %Eosinophils 4.8 % (0.0-10.0); %Lymphocytes 8.4 % (21.0-51.0); %Monocytes 11.9 % (0.0-10.0); %Neutrophils 73.8 % (42.0-75.0); Hemoglobin 8.4 g/dL (14.0-18.0); Manual Diff?? NO; Mean Corpuscular HGB CONC 31.3 g/dL (32.0-36.0); Mean Corpuscular Hemoglobin 30.1 pg (27.0-31.0); Mean Corpuscular Volume 95.9 fL (78.0-98.0); Mean Platelet Volume 8.4 fL (7.4-10.4); Platelet Count 165 thou/uL (130-400); RBC Distribution Width 16.8 % (11.5-14.5)
[2020-09-24 05:22] LABS: Anion Gap 11 mmol/L (10-20); BUN (Urea Nitrogen) 31 mg/dL (8.4-25.7); Calc. Creatinine Clearance 55 mL/min (70-130); Calcium 7.9 mg/dL (7.8-10.44); Carbon Dioxide 21 mmol/L (23-31); Chloride 112 mmol/L (98-107); Glucose 98 mg/dL (83-110); Potassium 3.9 mmol/L (3.5-5.1); Sodium 140 mmol/L (136-145)
[2020-09-24] MEDS: Ciprofloxacin 500 MG TAB PO SCH ×2 (06:00→20:42)
[2020-09-24] MEDS: Clopidogrel Bisulfate 75 MG TAB PO SCH (08:08)
[2020-09-24] MEDS: Furosemide 40 MG TAB PO SCH (08:08)
[2020-09-24] MEDS: Gabapentin 300 MG CAP PO SCH ×3 (08:08→20:42)
[2020-09-24] MEDS: Potassium Chloride 10 MEQ TAB PO SCH (08:10)
[2020-09-24] MEDS: Amlodipine 5 MG TAB PO SCH (08:11)
[2020-09-24] MEDS: Apixaban 2.5 MG TAB PO SCH ×2 (08:11→20:42)
[2020-09-24] MEDS: traMADol HCl 50 MG TAB PO PRN (14:44)
[2020-09-25] MEDS: Acetaminophen 500 MG TAB PO SCH ×5 (00:03→23:10)
[2020-09-25] MEDS: Ciprofloxacin 500 MG TAB PO SCH ×2 (06:18→21:21)
[2020-09-25] MEDS: Potassium Chloride 10 MEQ TAB PO SCH (08:54)
[2020-09-25] MEDS: Apixaban 2.5 MG TAB PO SCH ×2 (08:54→21:23)
[2020-09-25] MEDS: Gabapentin 300 MG CAP PO SCH ×3 (08:54→21:22)
[2020-09-25] MEDS: Furosemide 40 MG TAB PO SCH (08:54)
[2020-09-25] MEDS: Clopidogrel Bisulfate 75 MG TAB PO SCH (08:54)
[2020-09-25] MEDS: Amlodipine 5 MG TAB PO SCH (08:55)
[2020-09-25] MEDS: traMADol HCl 50 MG TAB PO PRN (23:11)
[2020-09-26] MEDS: Acetaminophen 500 MG TAB PO SCH ×3 (05:44→17:51)
[2020-09-26] MEDS: Ciprofloxacin 500 MG TAB PO SCH ×2 (05:44→20:40)
[2020-09-26] MEDS: Clopidogrel Bisulfate 75 MG TAB PO SCH (08:51)
[2020-09-26] MEDS: Gabapentin 300 MG CAP PO SCH ×3 (08:51→20:40)
[2020-09-26] MEDS: Potassium Chloride 10 MEQ TAB PO SCH (08:51)
[2020-09-26] MEDS: Furosemide 40 MG TAB PO SCH (08:51)
[2020-09-26] MEDS: Apixaban 2.5 MG TAB PO SCH ×2 (08:51→20:40)
[2020-09-26] MEDS: Amlodipine 5 MG TAB PO SCH (08:52)
[2020-09-27] MEDS: Acetaminophen 500 MG TAB PO SCH ×4 (00:12→17:43)
[2020-09-27] MEDS: Ciprofloxacin 500 MG TAB PO SCH ×2 (06:15→20:31)
[2020-09-27] MEDS: Potassium Chloride 10 MEQ TAB PO SCH (08:26)
[2020-09-27] MEDS: Clopidogrel Bisulfate 75 MG TAB PO SCH (08:27)
[2020-09-27] MEDS: Amlodipine 5 MG TAB PO SCH (08:27)
[2020-09-27] MEDS: Furosemide 40 MG TAB PO SCH (08:28)
[2020-09-27] MEDS: Apixaban 2.5 MG TAB PO SCH ×2 (08:28→20:32)
[2020-09-27] MEDS: Gabapentin 300 MG CAP PO SCH ×3 (08:28→20:31)
[2020-09-28] MEDS: Acetaminophen 500 MG TAB PO SCH ×4 (00:12→17:45)
[2020-09-28] MEDS: Ciprofloxacin 500 MG TAB PO SCH ×2 (06:09→20:31)
[2020-09-28] MEDS: Gabapentin 300 MG CAP PO SCH ×3 (08:31→20:32)
[2020-09-28] MEDS: Furosemide 40 MG TAB PO SCH (08:31)
[2020-09-28] MEDS: Amlodipine 5 MG TAB PO SCH (08:32)
[2020-09-28] MEDS: Apixaban 2.5 MG TAB PO SCH ×2 (08:32→20:32)
[2020-09-28] MEDS: Clopidogrel Bisulfate 75 MG TAB PO SCH (08:32)
[2020-09-28] MEDS: Potassium Chloride 10 MEQ TAB PO SCH (08:32)
[2020-09-28] MEDS ORDERED: AMOXicillin 500 MG CAP PO SCH (22:00)
[2020-09-28] MEDS: AMOXicillin 250 MG CAP PO SCH (22:04)
[2020-09-29] MEDS: Acetaminophen 500 MG TAB PO SCH ×4 (00:25→17:15)
[2020-09-29] MEDS: AMOXicillin 250 MG CAP PO SCH ×3 (06:08→21:06)
[2020-09-29] MEDS: Ciprofloxacin 500 MG TAB PO SCH ×2 (06:09→21:06)
[2020-09-29] MEDS: Clopidogrel Bisulfate 75 MG TAB PO SCH (08:20)
[2020-09-29] MEDS: Furosemide 40 MG TAB PO SCH (08:20)
[2020-09-29] MEDS: Potassium Chloride 10 MEQ TAB PO SCH (08:20)
[2020-09-29] MEDS: Amlodipine 5 MG TAB PO SCH (08:20)
[2020-09-29] MEDS: Apixaban 2.5 MG TAB PO SCH ×2 (08:21→21:07)
[2020-09-29] MEDS: Gabapentin 300 MG CAP PO SCH ×3 (08:21→21:07)
[2020-09-29] MEDS: traMADol HCl 50 MG TAB PO PRN (21:12)
[2020-09-30] MEDS: Acetaminophen 500 MG TAB PO SCH ×4 (00:02→17:48)
[2020-09-30] MEDS: traMADol HCl 50 MG TAB PO PRN (04:49)
[2020-09-30] MEDS: AMOXicillin 250 MG CAP PO SCH ×3 (04:50→20:52)
[2020-09-30] MEDS: Ciprofloxacin 500 MG TAB PO SCH (04:50)
[2020-09-30] MEDS: Furosemide 40 MG TAB PO SCH (07:40)
[2020-09-30] MEDS: Gabapentin 300 MG CAP PO SCH ×3 (08:44→20:52)
[2020-09-30] MEDS: Amlodipine 5 MG TAB PO SCH (08:46)
[2020-09-30] MEDS: Apixaban 2.5 MG TAB PO SCH ×2 (08:47→20:53)
[2020-09-30] MEDS: Clopidogrel Bisulfate 75 MG TAB PO SCH (08:47)
[2020-09-30] MEDS: Potassium Chloride 10 MEQ TAB PO SCH (08:47)
[2020-09-30] MEDS ORDERED: Milk Of Magnesia 30 ML UDCUP PO PRN (13:09)
[2020-10-01] MEDS: Acetaminophen 500 MG TAB PO SCH ×4 (00:09→17:43)
[2020-10-01 05:49] LABS: Hemoglobin 9.2 g/dL (14.0-18.0); Platelet Count 239 thou/uL (130-400)
[2020-10-01] MEDS: traMADol HCl 50 MG TAB PO PRN (06:12)
[2020-10-01] MEDS: Furosemide 40 MG TAB PO SCH (06:12)
[2020-10-01] MEDS: AMOXicillin 250 MG CAP PO SCH ×3 (06:12→20:35)
[2020-10-01] MEDS: Gabapentin 300 MG CAP PO SCH ×3 (08:38→20:36)
[2020-10-01] MEDS: Potassium Chloride 10 MEQ TAB PO SCH (08:38)
[2020-10-01] MEDS: Amlodipine 5 MG TAB PO SCH (08:39)
[2020-10-01] MEDS: Apixaban 2.5 MG TAB PO SCH ×2 (08:39→20:35)
[2020-10-01] MEDS: Clopidogrel Bisulfate 75 MG TAB PO SCH (08:39)
[2020-10-02] MEDS: Acetaminophen 500 MG TAB PO SCH ×2 (01:33→06:05)
[2020-10-02] MEDS: AMOXicillin 250 MG CAP PO SCH (06:05)
[2020-10-02] MEDS: Gabapentin 300 MG CAP PO SCH (07:48)
[2020-10-02] MEDS: Clopidogrel Bisulfate 75 MG TAB PO SCH (07:48)
[2020-10-02] MEDS: Furosemide 40 MG TAB PO SCH (07:48)
[2020-10-02] MEDS: Apixaban 2.5 MG TAB PO SCH (07:48)
[2020-10-02] MEDS: Amlodipine 5 MG TAB PO SCH (07:51)
[2020-10-02 07:52] VITALS: BP 148/70
[2020-10-02] MEDS ORDERED: Potassium Chloride 20 MEQ TAB PO SCH (08:00)
[2020-10-02 08:34] VITALS: TEMP 97.4
== END 2020-10-02 10:15 | disposition hospice, home (50) | DRG 559 ==
LOC: NAV ACUTE 19:05
PROVIDERS: ADMIT Family Medicine; ATTEND Family Medicine
DX: S72.002D Fracture of unspecified part of neck of left femur, subsequent encounter for closed fracture with routine healing (principal); L89.624 Pressure ulcer of left heel, stage 4; I50.33 Acute on chronic diastolic (congestive) heart failure; I73.9 Peripheral vascular disease, unspecified; I25.10 Atherosclerotic heart disease of native coronary artery without angina pectoris; K21.9 Gastro-esophageal reflux disease without esophagitis; E78.5 Hyperlipidemia, unspecified; I35.0 Nonrheumatic aortic (valve) stenosis; Z96.652 Presence of left artificial knee joint; I49.5 Sick sinus syndrome; I48.91 Unspecified atrial fibrillation; M19.90 Unspecified osteoarthritis, unspecified site; I11.0 Hypertensive heart disease with heart failure; Z79.01 Long term (current) use of anticoagulants; Z79.899 Other long term (current) drug therapy; Z79.2 Long term (current) use of antibiotics; Z87.891 Personal history of nicotine dependence; Z86.73 Personal history of transient ischemic attack (TIA), and cerebral infarction without residual deficits; Z95.1 Presence of aortocoronary bypass graft; Z95.2 Presence of prosthetic heart valve; Z90.79 Acquired absence of other genital organ(s); Z98.890 Other specified postprocedural states
CPT/HCPCS: 80048; 85014; 85018; 85025; 85049; 87070; 87077; 87186; 87205; 97602; Q0162